=== PATIENT | male | born 1970 | race Two or more races ===

== ENCOUNTER 2021-08-07 09:38 | Emergency (ER) | payer OTHER, SELFPAY ==
--- NOTE | ~2021-08-07 | XR_ITS ---
EXAMINATION: XR CHEST CLINICAL INFORMATION: Cough COMPARISON: Previous chest x-ray most recent June 2019 TECHNIQUE: Frontal view of the chest was obtained. FINDINGS: No significant abnormality is noted involving the heart, lungs, mediastinum, bony thorax or soft tissues. XR/XR chest 1V IMPRESSION: Unremarkable examination.
--- NOTE | ~2021-08-07 | CT_ITS ---
EXAMINATION: CT ABDOMEN AND PELVIS WITHOUT CONTRAST CLINICAL INFORMATION: Left flank, back pain. COMPARISON: None TECHNIQUE: Multidetector volumetric imaging was performed from the superior aspect of the liver through the pubic symphysis. No oral or intravenous contrast. Sagittal and coronal reformatted images were obtained on the technologist's workstation. This CT examination was performed using dose optimization techniques as appropriate, variously including the following: *Automated exposure control *Adjustment of mA and/or kV according to patient size (this includes techniques or standardized protocols for targeted exams where dose is matched to indication/reason for exam; i.e. extremities or head) *Use of iterative reconstruction technique DLP: 366 mGy-cm FINDINGS: LUNG BASES: The visualized lung bases are unremarkable. LIVER, GALLBLADDER, AND BILIARY TREE: The liver is normal in size, shape, and attenuation. No focal hepatic lesion or biliary ductal dilatation is present. The gallbladder is unremarkable with no evidence of radiopaque gallstones, gallbladder wall thickening, or obvious pericholecystic inflammatory changes. PANCREAS: Unremarkable. SPLEEN: Unremarkable. ADRENAL GLANDS: Unremarkable. KIDNEYS AND URETERS: The kidneys are normal in size and show no hydronephrosis, hydroureter, or perinephric stranding. There is a punctate nonobstructing calculus lower pole left kidney measuring under 3 mm. No visible ureteral calculi. BLADDER: Unremarkable. GASTROINTESTINAL TRACT: No bowel obstruction or focal inflammatory changes in the bowel or mesentery. Normal appendix. No ascites or fluid collection. ABDOMINAL WALL: There is left inguinal hernia 2 x 3 cm in diameter and 6 cm in length. There is oval soft tissue density within the hernia 26 HU possibly retracted testis or mass spermatic cord. LYMPH NODES: No lymphadenopathy. VASCULAR: Unremarkable. PELVIC VISCERA: Unremarkable. OSSEOUS STRUCTURES: No acute bony abnormality. There are degenerative disc changes L4-L5 with disc narrowing and vacuum disc. CT/CT abdomen pelvis wo con IMPRESSION: 1. Punctate nonobstructing left lower pole renal calculus. No hydronephrosis or perinephric stranding. 2. No inflammatory changes in bowel or mesentery. No ascites. 3. Left inguinal hernia containing soft tissue, possibly retracted testis are lesion spermatic cord. 4. Abdominal aorta normal in caliber. No adenopathy. 5. Degenerative disc changes L4-L5. Fleischner guidelines were followed.
[2021-08-07 10:03] VITALS: BP 107/72; PULSE 76; RESP 18; TEMP 36.6; O2SAT 98; BMI 27.8
--- NOTE | 2021-08-07 11:01 | ED_ITS ---
HPI - Back Pain/Injury General Chief Complaint: Back Pain/Injury Stated Complaint: back pain, rash Time Seen by Provider: 08/07/21 10:41 Source: patient Mode of arrival: ambulatory Limitations: language barrier (Yakut-speaking) History of Present Illness HPI Narrative: 50-year-old male with a past medical history of asthma presenting to the ED with complaints of atraumatic left lower back/flank pain since Satur ay when he was at home he cannot recall any specific injury. Although he does report that he just recently started a job and he is lifting/bending/turning and he is unsure if it is related to this although he was not at work when this started. He also reports his urine being wider in color. He also reports when he was at work he noticed some redness to his bilateral forearms which have improved he is unsure if he is allergic to the gloves that he was wearing because he does not use any chemicals at home. He also reports a slight cough that recently started no sputum production related to this. He denies any fevers, chills, dizziness, headaches, neck pain/stiffness, chest pain or shortne ss of breath, dyspnea on exertion, orthopnea, palpitations, lower extremity edema, nausea/vomiting/diarrhea, constipation, black or bloody stools, hematuria, abnormal penile discharge, thoughts of STDs, recent travel or sick contacts, or history of IV drug use or any other symptoms complaints or co ncerns at this time. MD elicited complaint: back pain Onset (ago): day(s) (4 days) Timing: constant and progressively worsening Severity: mild Similar Symptoms Previously: No Quality: sharp Location: left flank and left lower back Radiation: none Exacerbating factors: none Relieving factors: none Context: unknown Work related injury: No Related Data Previous Rx's Medication Instructions Recorded azithromycin 250 mg tablet See Rx Instructions .ROUTE 08/07/21 .COMPLEX #6 tab diazepam 5 mg tablet (Valium) 5 mg PO TID PRN #14 tab 08/07/21 lidocaine 5 % topical patch 1 patch TOPICAL DAILY #15 ea 08/07/21 (Lidoderm) Allergies Allergy/AdvReac Type Severity Reaction Status Date / Time No Known Allergies Allergy Verified 08/07/21 10:02 [No Known Allergies*] Review of Systems Review of Systems: Constitutional : No trauma, No Weight loss, No Fever, No Chills, ENT/Mouth : No Hearing loss, No Ear Pain, No Nasal Congestion, No Sinus Pain, No Hoarseness, No sore throat, No Rhinorrhea, No Swallowing Difficulty Cardiovascular : No Chest Pain, No SOB Respiratory : + Cough, No Dyspnea Gastrointestinal : No Nausea, No Vomiting, No Diarrhea, No abdominal Pain, No Hematochezia, No Melena Genitourinary : No Dysuria, No Urinary Frequency, No Hematuria, No Urinary or Bowel Incontinence/retention Musculoskeletal : + Back pain, No neck pain, No joint stiffness, No joint swelling Skin : + Rash, No Skin Lesions, No signs of infection Neuro : No Weakness, No radiation, No Numbness, No Paresthesias, No headache, no loss of bowel or bladder incontinence, no saddle anesthesia, Focal weakness, No radiation Denies history of IV drug usage. Yes all other systems are reviewed and are negative [facility] Past Medical History Attestation statement: The following information was validated with the patient. Medical History Asthma Social History Social History Advance Directives: No Physical Exam Vital Signs: Vital Signs: Last Vital Signs Temp 97.8 F 08/07/21 10:03 Pulse 76 08/07/21 10:03 Resp 18 08/07/21 10:03 BP 107/72 08/07/21 10:03 Pulse Ox 98 08/07/21 10:03 Body Mass Index 27.8 vital signs have been reviewed as normal and appeared to be correct. Blood pressure normal. Heart rate normal. Respiration rate normal. Temperature n ormal. Oxygen saturation normal. Appearance: Alert. Oriented X3. No acute distress. Head: Normal external exam. Normocephalic. Atraumatic. Eyes: PERRLA. EOMI. Conjunctiva and sclera normal. Eyelids normal. ENT: Pharynx normal. Uvula midline. Moist mucous membranes. No trismus noted. No drooling noted. No muffled voice noted. Neck: Normal inspection. Neck supple. FROM. No adenopathy. Thyroid Normal. No meningeal signs. No neck mass noted. CVS: Normal heart rate and rhythm. Heart sound normal. No murmurs noted. Pulses normal throughout. Respiratory: No respiratory distress. Painless inspiration. Breath sounds normal. No wheezes/rales/rhonchi noted. Chest nontender. No accessory muscle usage noted or decreased air movement noted. Abdomen: Soft and nontender. Bowel sounds normal in all 4 quadrants. No distention noted. No organomegaly noted. No visible injury noted. Back: + left CVA tenderness. No Right CVAT noted. Full range of motion noted. No obvious deformities, or edema. Mild para-spinal muscular tenderness from lumbar region to coccyx. Full ROM in back and lower extremities. 5/5 strength hip extension/flexion, abduction, adduction. Mild Lumbar pain with hip flexion against resistance. Straight leg raise test negative on right; Straight leg raise test negative on left; Reflexes normal ankle and knee bilaterally; EHL motor strength normal bilaterally. No rashes/lesion/induration/fluctuance or signs infection noted. Skin: Skin warm and dry. Normal skin color. Normal skin turgor. To bilateral forearms on the dorsal aspect patient has mild erythema otherwise no rashes are noted may be improving allergic reaction. No lesions/lacerations noted. Extremities: No lower extremity edema. No calf tenderness noted bilaterally. Extremities exhibit normal range of motion. Extremities nontender. Neuro: Oriented X 3. No motor deficit. No sensory deficit. Reflexes normal. Patient has a normal steady gait. Course Course Course Narrative: 11am - Pt c likely muscular pain, but could be herniated disc. Neuro exam shows no deficits. Not c/w Pyelo/UTI/spinal fx. Not c/w AAA/epidural abscess/dissection. Not cauda equina syndrome. No high risk Hx (Incont, fever, immunosupp, recent surgery/LP, coag, signif trauma, wt loss, puls mass, hx/o Ca, TB, or IVDU) to warrant MRI today. Due to patient only having left-sided back/flank pain will obtain basic labs and a CT scan abdomen pelvis without IV contrast will also obtain a chest x-ray and I covid swab and re-evaluate. Reevaluation(s) Reevaluation #1: - labs obtained and all within normal limits. UA within normal limits no evidence of UTI. COVID swab negative. Chest x-ray negative. CT scan abdomen pelvis without IV contrast revealed a kidney stone still in the kidney and a left inguinal hernia and degenerative changes of L4/L5 otherwise no other acute processes only chronic changes. Therefore at this time will DC home with symptomatic treatment for muscular strain instructions return if any new or worsening symptoms to follow up with primary care provider. Patient understands agrees with this plan. Time: 12:21 MDM - Back Pain/Injury Medical Records Attestation: I reviewed the patient's medical records. Lab Data Attestation: I reviewed the patient's lab results. Result diagrams: 08/07/21 11:07 08/07/21 11:07 Labs: Lab Results 08/07/21 08/07/21 08/07/21 Range/Units 10:54 10:54 11:07 WBC 5.4 (4.8-10.8) X10*3/uL RBC 4.44 L (4.60-5.80) X10*6/uL Hgb 14.4 (14.0-18.0) g/dl Hct 43.1 (42.0-52.0) % MCV 97.1 (80.0-98.0) fL MCH 32.4 (27.0-33.0) pg MCHC 33.4 (31.0-36.0) g/dl RDW 12.3 (11.0-16.0) % Plt Count 268 (160-400) X10*3/uL MPV 8.9 L (9.4-12.4) fL Immature Gran % (Auto) 0.2 (0.0-0.4) % Neut % (Auto) 69.8 (45-73) % Lymph % (Auto) 12.8 L (20-40) % [place] % (Auto) 13.4 H (2-11) % Eos % (Auto) 3.2 (0-4) % Baso % (Auto) 0.6 (0-2) % Lymph # (Auto) 0.7 L (1.2-4.9) X10*3/uL [place] # (Auto) 0.7 (0.1-1.2) X10*3/uL Eos # (Auto) 0.2 (0.0-0.4) X10*3/uL Baso # (Auto) 0.0 (0.0-0.2) X10*3/uL Abs Immat Gran (auto) 0.01 (0.00-0.03) X10*3/uL Absolute Neuts (auto) 3.8 (2.0-8.3) x10*3/uL Absolute Nucleated RBC 0.000 (0.0-0.012) X10*3/uL Nucleated RBC % (auto) 0.0 (0.0-0.2) /100WBC Sodium (135-145) mmol/L Potassium (3.3-5.1) mmol/L Chloride (96-108) mmol/L Carbon Dioxide (22-29) mmol/L Anion Gap (12-20) BUN (9-16) mg/dL Creatinine (0.5-1.4) mg/dL Estim Creat Clear Calc Estimated GFR Random Glucose (60-115) mg/dL Calcium (8.4-10.2) mg/dL Urine Color YELLOW Urine Appearance CLEAR Urine pH 6.0 (5.0-8.0) Ur Specific [place] >= 1.030 H (1.005-1.025) Urine Protein TRACE (NEG-TRACE) MG/DL Urine Glucose (UA) NEG (NEG) MG/DL Urine Ketones NEG (NEG) MG/DL Urine Blood NEG (NEG) Urine Nitrite NEG (NEG) Ur Leukocyte Esterase NEG (NEG) COVID-19 (MARIFER) Negative (Negative) COVID-19 Clin Com See Note 08/07/21 Range/Units 11:07 WBC (4.8-10.8) X10*3/uL RBC (4.60-5.80) X10*6/uL Hgb (14.0-18.0) g/dl Hct (42.0-52.0) % MCV (80.0-98.0) fL MCH (27.0-33.0) pg MCHC (31.0-36.0) g/dl RDW (11.0-16.0) % Plt Count (160-400) X10*3/uL MPV (9.4-12.4) fL Immature Gran % (Auto) (0.0-0.4) % Neut % (Auto) (45-73) % Lymph % (Auto) (20-40) % [place] % (Auto) (2-11) % Eos % (Auto) (0-4) % Baso % (Auto) (0-2) % Lymph # (Auto) (1.2-4.9) X10*3/uL [place] # (Auto) (0.1-1.2) X10*3/uL Eos # (Auto) (0.0-0.4) X10*3/uL Baso # (Auto) (0.0-0.2) X10*3/uL Abs Immat Gran (auto) (0.00-0.03) X10*3/uL Absolute Neuts (auto) (2.0-8.3) x10*3/uL Absolute Nucleated RBC (0.0-0.012) X10*3/uL Nucleated RBC % (auto) (0.0-0.2) /100WBC Sodium 138 (135-145) mmol/L Potassium 4.4 (3.3-5.1) mmol/L Chloride 107 (96-108) mmol/L Carbon Dioxide 25 (22-29) mmol/L Anion Gap 10 L (12-20) BUN 7 L (9-16) mg/dL Creatinine 0.88 (0.5-1.4) mg/dL Estim Creat Clear Calc 93.2 Estimated GFR > 60 Random Glucose 87 (60-115) mg/dL Calcium 8.7 (8.4-10.2) mg/dL Urine Color Urine Appearance Urine pH (5.0-8.0) Ur Specific [place] (1.005-1.025) Urine Protein (NEG-TRACE) MG/DL Urine Glucose (UA) (NEG) MG/DL Urine Ketones (NEG) MG/DL Urine Blood (NEG) Urine Nitrite (NEG) Ur Leukocyte Esterase (NEG) COVID-19 (MARIFER) (Negative) COVID-19 Clin Com Imaging Data Chest x-ray: Attestation: I personally reviewed and interpreted this imaging study as follows: Radiologist's impression: FINDINGS: No significant abnormality is noted involving the heart, lungs, mediastinum, bony thorax or soft tissues. XR/XR chest 1V IMPRESSION: Unremarkable examination. CT scan abdomen pelvis without IV contrast: Attestation: I personally reviewed and interpreted this imaging study as follows: Radiologist's impression: FINDINGS: LUNG BASES: The visualized lung bases are unremarkable.? LIVER, GALLBLADDER, AND BILIARY TREE: The liver is normal in size, shape, and attenuation. No focal hepatic lesion or biliary ductal dilatation is present. The gallbladder is unremarkable with no evidence of radiopaque gallstones, gallbladder wall thickening, or obvious pericholecystic inflammatory changes.? PANCREAS: Unremarkable.? SPLEEN: Unremarkable.? ADRENAL GLANDS: Unremarkable.? KIDNEYS AND URETERS: The kidneys are normal in size and show no hydronephrosis, hydroureter, or perinephric stranding. There is a punctate nonobstructing calculus lower pole left kidney measuring under 3 mm. No visible ureteral calculi.? BLADDER: Unremarkable.? GASTROINTESTINAL TRACT: No bowel obstruction or focal inflammatory changes in the bowel or mesentery. Normal appendix. No ascites or fluid collection.? ABDOMINAL WALL: There is left inguinal hernia 2 x 3 cm in diameter and 6 cm in length. There is oval soft tissue density within the hernia 26 HU possibly retracted testis or mass spermatic cord. LYMPH NODES: No lymphadenopathy. VASCULAR: Unremarkable. PELVIC VISCERA: Unremarkable.? OSSEOUS STRUCTURES: No acute bony abnormality. There are degenerative disc changes L4-L5 with disc narrowing and vacuum disc.? CT/CT abdomen pelvis wo con IMPRESSION: ? 1. Punctate nonobstructing left lower pole renal calculus. No hydronephrosis or perinephric stranding. 2. No inflammatory changes in bowel or mesentery. No ascites. 3. Left inguinal hernia containing soft tissue, possibly retracted testis are lesion spermatic cord. 4. Abdominal aorta normal in caliber. No adenopathy. 5. Degenerative disc changes L4-L5.? ? Fleischner guidelines were followed. Discharge Plan Discharge Clinical Impression: Strain of lumbar region, Renal colic, Bronchitis Patient Disposition: Home, Self-Care Instructions: Renal Colic (ED), Acute Bronchitis (ED), Low Back Strain (ED) Prescriptions: New azithromycin 250 mg tablet See Rx Instructions .ROUTE .COMPLEX Qty: 6 RF: 0 lidocaine [Lidoderm] 5 % adhesive patch,medicated 1 patch topical DAILY Qty: 15 RF: 0 diazepam [Valium] 5 mg tablet 5 mg PO TID PRN (Reason: muscle spasm) Qty: 14 RF: 0 Referrals: Physician,Unknown J [Primary Care Provider] - 2 days (your pcp) Stand Alone Forms: Work/School Release Print Language: Yakut
[2021-08-07 11:02] LABS: Appearance Urine CLEAR; Color Urine YELLOW; Glucose Urine UA NEG (NEG); Leukocyte Esterase Urine NEG (NEG); Nitrite Urine NEG (NEG); Specific Gravity - Urine >= 1.030 (1.005-1.025); Urine Blood NEG (NEG); Urine Ketones NEG (NEG); Urine Protein TRACE MG/DL (NEG-TRACE)
[2021-08-07 11:10] LABS: MANUAL DIFF FLAG NO
[2021-08-07 11:13] LABS: Basophils Percent Auto 0.6 % (0-2); Eosinophils Absolute Auto 0.2 X10*3/uL (0.0-0.4); Eosinophils Percent Auto 3.2 % (0-4); Hematocrit 43.1 % (42.0-52.0); Hemoglobin 14.4 g/dl (14.0-18.0); Imm Gran Abs Auto 0.01 X10*3/uL (0.00-0.03); Imm Gran Pct Auto 0.2 % (0.0-0.4); Lymphocytes Absolute Auto 0.7 X10*3/uL (1.2-4.9); Lymphocytes Percent Auto 12.8 % (20-40); Mean Corpuscular HGB Conc 33.4 g/dl (31.0-36.0); Mean Corpuscular Hemoglobin 32.4 pg (27.0-33.0); Mean Corpuscular Volume 97.1 fL (80.0-98.0); Mean Platelet Volume 8.9 fL (9.4-12.4); Monocytes Absolute Auto 0.7 X10*3/uL (0.1-1.2); Monocytes Percent Auto 13.4 % (2-11); Neutrophils Absolute Auto 3.8 x10*3/uL (2.0-8.3); Neutrophils Percent Auto 69.8 % (45-73); Platelet Count 268 X10*3/uL (160-400); Red Blood Count 4.44 X10*6/uL (4.60-5.80); Red Cell Distribution Width 12.3 % (11.0-16.0); White Blood Count 5.4 X10*3/uL (4.8-10.8)
[2021-08-07 11:13] LABS: COVID-19 Test Negative (Negative)
[2021-08-07 11:26] LABS: Anion Gap 10 (12-20); Blood Urea Nitrogen 7 mg/dL (9-16); Calcium 8.7 mg/dL (8.4-10.2); Carbon Dioxide 25 mmol/L (22-29); Chloride 107 mmol/L (96-108); Creatinine Clr Calc Pharmacy 93.2; Estimated Glomerular Filt Rate > 60; Glucose Random 87 mg/dL (60-115); Potassium 4.4 mmol/L (3.3-5.1); Sodium 138 mmol/L (135-145)
== END 2021-08-07 12:39 | disposition home or self-care (01) ==
PROVIDERS: Physician Assistant Medical; Emergency Provider Emergency Medicine
DX: M54.50 Low back pain, unspecified (principal); J40 Bronchitis, not specified as acute or chronic; N23 Unspecified renal colic; R21 Rash and other nonspecific skin eruption; Z20.822 Contact with and (suspected) exposure to COVID-19; Z79.899 Other long term (current) drug therapy
CPT/HCPCS: 36415; 71045; 74176; 80048; 81003; 85025; 87635; 99283; 99284

== ENCOUNTER 2021-09-26 11:33 | Outpatient (REF) | payer OTHER, SELFPAY ==
[2021-09-26 13:14] LABS: COVID-19 Test Negative (Negative)
== END 2021-09-26 11:34 | disposition home or self-care (01) ==
LOC: HO.LAB 11:33
PROVIDERS: Visit Provider Internal Medicine
DX: Z20.822 Contact with and (suspected) exposure to COVID-19 (principal)
CPT/HCPCS: 87635; C9803

== ENCOUNTER 2022-03-31 19:30 | Emergency (ER) | payer OTHER, SELFPAY ==
[2022-03-31 19:45] VITALS: BP 117/56; PULSE 95; RESP 18; TEMP 37.6; O2SAT 95; BMI 24.0
[2022-03-31 20:12] LABS: COVID-19 Test Positive (Negative); IDNOW Serial# 16C4AD1C
--- NOTE | 2022-03-31 22:21 | ED_ITS ---
HPI - URI/Sore Throat General Chief Complaint: Upper Respiratory Symptoms Stated Complaint: Fever, throat pain, headache Time Seen by Provider: 03/31/22 21:25 Source: patient Mode of arrival: ambulatory Limitations: no limitations History of Present Illness HPI Narrative: 51-year-old male history of asthma presenting with sudden onset sore throat, diffuse headache, malaise, myalgias, fatigue, subjective fevers and chills x1 day. Patient tells me this all started suddenly while he was at work. He tells me this feels weak is the flu. He tells me his whole body hurts. Denies chest pain, shortness of breath, nausea, vomiting, abdominal pain, vision changes, dizziness. Patient not vaccinated against covid or flu. No sick contacts Related Data Previous Rx's Medication Instructions Recorded azithromycin 250 mg tablet See Rx Instructions PO .COMPLEX #6 08/07/21 tabs diazepam 5 mg tablet (Valium) 5 mg PO TID PRN muscle spasm #14 08/07/21 tabs lidocaine 5 % topical patch 1 patch topical DAILY pain #15 ea 08/07/21 (Lidoderm) Allergies Allergy/AdvReac Type Severity Reaction Status Date / Time No Known Allergies Allergy Verified 08/07/21 10:02 [No Known Allergies*] Review of Systems Review of Systems: Constitutional : No Weight loss, + Fever, + Chills, + Fatigue, + Malaise ENT/Mouth : + sore throat, No Rhinorrhea, + facial congestion Eyes: No Eye Pain, No Swelling, No Redness Cardiovascular : No Chest Pain, No SOB, No Dyspnea on Exertion, No Orthopnea, No Edema, No Palpitations Respiratory : No Cough, No Sputum, No Wheezing Gastrointestinal : No Nausea, No Vomiting, No Diarrhea, No Constipation, No abdominal Pain, No Hematochezia, No Melena Genitourinary : No Dysuria, No Urinary Frequency, No Hematuria, Musculoskeletal : No joint pain, No Myalgias, No Joint Swelling Skin : No Skin Lesions, No rash Neuro : No Weakness, No Numbness, No Dizziness, No Headache Psych : No Anxiety/Panic, No Depression All other systems reviewed and are negative Yes all other systems are reviewed and are negative [facility] Past Medical History Attestation statement: The following information was validated with the patient. Source: old records reviewed and nursing notes reviewed Medical History Asthma Physical Exam Vital Signs: Vital Signs: Last Vital Signs Temp 99.7 F 03/31/22 19:45 Pulse 95 03/31/22 19:45 Resp 18 03/31/22 19:45 BP 117/56 L 03/31/22 19:45 Pulse Ox 95 03/31/22 19:45 O2 Del Method 03/31/22 19:45 BMI result Body Mass Index 24.0 Vital signs stable Appearance: Alert.? Oriented X3.? No acute distress.? Head: Normocephalic, atraumatic, no step-offs or deformities Eyes: Pupils equal, round and reactive to light.? CVS: Normal heart rate and rhythm.? Pulses normal.? Respiratory: No respiratory distress.? Breath sounds normal.? Abdomen: Soft and nontender.? Skin: Skin warm and dry.? Normal skin color.? Normal skin turgor.? Extremities: No lower extremity edema.? No calf ttp, negative janeth b/l. 5/5 strength to bilateral upper and lower extremities Neuro: Oriented X 3.? No motor deficit.? No sensory deficit. CN 2-12 intact . Normal [id number]. Steady tandem gait Course Reevaluation(s) Reevaluation #1: Patient is noted to be COVID positive. Educated him on instructions for COVID- 19 per CDC guidelines. Advised to return with new or worsening symptoms. At this time I feel comfortable with discharge home. Time: 22:24 MDM - URI/Sore Throat MDM Narrative Medical decision making narrative: 2223 51-year-old male presents with sudden-onset upper respiratory symptoms, sore throat, malaise, subjective fevers and chills times a few hours Physical exam benign. Cerebellar function intact Likely COVID-19. Low suspicion for pneumonia, ACS, for strep pharyngitis. No red flag symptoms for headache unlikely posterior stroke Plan at this time is COVID test. Medical Records Attestation: I reviewed the patient's medical records. Lab Data Attestation: I reviewed the patient's lab results. Labs: Lab Results 03/31/22 Range/Units 19:52 COVID-19 (MARIFER) Positive A (Negative) COVID-19 Clin Com See Note Critical Care Time Critical Care Time Critical Care Time: No Discharge Plan Discharge Clinical Impression: COVID-19 Patient Disposition: Home, Self-Care Additional Instructions: Take your medications as prescribed. If you were prescribed antibiotics today, it is important that you take your medication to their entirety, do not skip any doses, do not finish them early. Today you tested positive for COVID-19. Take Ibuprofen or Tylenol as needed for fevers or body aches. Quarantine for 5 days and ensure you wear a mask. After 5 days you should wear a mask for 5 days after that. Practice social distancing and good hand hygiene. Drink plenty of fluids. Follow-up with your primary care provider this week. Return to the emergency department with new or worsening symptoms. In case of emergency call 911 You can purchase a pulse oximeter from your local pharmacy or grocery store, and monitor your oxygen saturation if it goes below 94% you should return to the emergency department for further evaluation. Prescriptions: No Action azithromycin 250 mg tablet See Rx Instructions .ROUTE .COMPLEX Qty: 6 0RF Rx Instructions: take 500 mg today (day 1), then 250 mg for 4 days (days 2-5) lidocaine [Lidoderm] 5 % adhesive patch,medicated 1 patch topical DAILY Qty: 15 0RF Rx Instructions: leave on most painful area for up to 12 hrs. May be substituted diazepam [Valium] 5 mg tablet 5 mg PO TID PRN (Reason: muscle spasm) Qty: 14 0RF Referrals: Physician,Unknown J [Primary Care Provider] - 2 days Stand Alone Forms: Work/School Release Interventions: ED Discharge Assessment Last Done: 03/31/22 22:28
== END 2022-03-31 22:46 | disposition home or self-care (01) ==
LOC: HO.ED 22:34
PROVIDERS: Emergency Provider Student in an Organized Health Care Education/Training Program
DX: U07.1 COVID-19 (principal); R50.9 Fever, unspecified; R51.9 Headache, unspecified; R07.0 Pain in throat; Z79.899 Other long term (current) drug therapy
CPT/HCPCS: 87635; 99282

== ENCOUNTER 2022-04-05 11:05 | Outpatient (REF) | payer OTHER, SELFPAY ==
[2022-04-05 11:52] LABS: COVID-19 Test Negative (Negative); IDNOW Serial# 9DB6401D
== END 2022-04-05 11:06 | disposition home or self-care (01) ==
LOC: HO.LAB 11:05
PROVIDERS: Visit Provider Internal Medicine
DX: Z20.822 Contact with and (suspected) exposure to COVID-19 (principal)
CPT/HCPCS: 87635; C9803

== ENCOUNTER 2023-02-11 12:23 | Emergency (ER) | payer SELFPAY ==
--- NOTE | ~2023-02-11 | XR_ITS ---
EXAMINATION: XR CHEST CLINICAL INFORMATION: Chest pain COMPARISON: Previous chest x-ray most recent July 2021 TECHNIQUE: 2 views of the chest were obtained. FINDINGS: No significant abnormality is noted involving the heart, lungs, mediastinum, bony thorax or soft tissues. XR/XR chest 2V IMPRESSION: Unremarkable examination.
--- NOTE | 2023-02-11 12:27 | ECG_ITS ---
Test Reason : cp Blood Pressure : / mmHG Vent. Rate : 077 BPM Atrial Rate : 077 BPM P-R Int : 142 ms QRS Dur : 076 ms QT Int : 380 ms P-R-T Axes : 084 073 070 degrees QTc Int : 430 ms Normal sinus rhythm Normal ECG When compared with ECG of 26-MAY-2019 17:18, No significant change was found Referred By: Emily Colbert Electronically Signed By:MARY WARE MD
[2023-02-11 13:05] VITALS: BP 128/70; PULSE 74; RESP 16; TEMP 36.5; O2SAT 97; BMI 24.5
--- NOTE | 2023-02-11 13:06 | ED_ITS ---
HPI - Asthma General Chief Complaint: General Medical Stated Complaint: chest pain l arm pain asthma Time Seen by Provider: 02/11/23 16:22 Source: patient and other History of Present Illness HPI Narrative: 52-year-old male who presents with asthma exacerbation, does not have a primary care doctor but is in the process of establishing care, does not have any med ication but is had worsening shortness of breath without associated fever, chills. Related Data Previous Rx's Medication Instructions Recorded azithromycin 250 mg tablet See Rx Instructions PO .COMPLEX #6 08/07/21 tabs diazepam 5 mg tablet (Valium) 5 mg PO TID PRN muscle spasm #14 08/07/21 tabs lidocaine 5 % topical patch 1 patch topical DAILY pain #15 ea 08/07/21 (Lidoderm) albuterol sulfate 90 mcg/actuation 2 puff inhalation Q4-6H PRN 02/11/23 aerosol inhaler (Ventolin HFA) shortness of breath or wheezing #8.5 grams prednisone 50 mg tablet 50 mg PO DAILY 4 days #4 tabs 02/11/23 Allergies Allergy/AdvReac Type Severity Reaction Status Date / Time No Known Allergies Allergy Verified 08/07/21 10:02 [No Known Allergies*] Review of Systems Review of Systems: Pertinent positives and negatives as stated in HPI PMFSH Past Medical History Source: nursing notes reviewed Medical History Asthma Social History Social History Advance Directives: No Advance Directives Information Provided: No Physical Exam Vital Signs: Vital Signs: Last Vital Signs Temp 97.7 F 02/11/23 13:05 Pulse 74 02/11/23 13:05 Resp 16 02/11/23 13:05 BP 128/70 02/11/23 13:05 Pulse Ox 97 02/11/23 13:05 O2 Del Method Room Air 02/11/23 13:05 BMI result Body Mass Index 24.5 VITAL SIGNS: Reviewed. GENERAL: Well developed, well nourished, in no acute distress. HEAD: Normocephalic/atraumatic EYES: PERRLA, EOMI EARS: Ext canals without abnormality NOSE: Nares patent bilateral OROPHARYNX: no oral lesions noted, posterior pharynx clear NECK: Supple, no adenopathy LUNGS: No tachypnea or increased work of breathing, there is scattered expiratory wheezing. SpO2<97> CARDIOVASCULAR: Regular rate and rhythm without noted murmurs ABDOMEN: Soft, non-tender, non-distended with bowel sounds. MUSCULOSKELETAL: No tenderness, deformities, or effusions noted on gross inspection. EXTREMITIES: No cyanosis, clubbing or edema. SKIN: Inspection of the skin reveals no rashes NEUROLOGIC: Alert and oriented x 4. Strength and sensation to light touch were grossly intact x 4. Course Course Course Narrative: RME - 52 y/o [place]inyar[place] speaking male with history of asthma presents to the ER for evaluation of SOB and asthma along with left sided chest pain and left shoulder pain that started yesterday. Reports pain is worse with movement of the left shoulder, difficulty driving due to pain. Also reports intermittent palpitations. VSS in triage. Plan: EKG, CXR, lab workup Medical Decision Making Medical Decision Making MDM Narrative: 52-year-old male with shortness of breath and chest tightness more than chest pain on clinical evaluation patient appears to have worsened asthma symptoms and on review of all investigations further corroboration is an eosinophilia 5 with negative trope and no concerning features on the EKG. Chest x-ray is also wit hout findings to suggest pneumonia. Patient given Ventolin as well as initiating steroids. He is then discharged home in stable condition. Differential Diagnosis Please see the discussion above Lab Data Please see the discussion above 02/11/23 12:56 02/11/23 12:56 Labs: Lab Results 02/11/23 02/11/23 02/11/23 Range/Units 12:56 12:56 12:56 WBC 6.0 (4.8-10.8) X10*3/uL RBC 4.43 L (4.60-5.80) X10*6/uL Hgb 14.3 (14.0-18.0) g/dl Hct 43.5 (42.0-52.0) % MCV 98.2 H (80.0-98.0) fL MCH 32.3 (27.0-33.0) pg MCHC 32.9 (31.0-36.0) g/dl RDW 12.8 (11.0-16.0) % Plt Count 331 (160-400) X10*3/uL MPV 8.8 L (9.4-12.4) fL Immature Gran % (Auto) 0.2 (0.0-0.4) % Neut % (Auto) 53.2 (45-73) % Lymph % (Auto) 29.2 (20-40) % [place] % (Auto) 11.7 H (2-11) % Eos % (Auto) 5.0 H (0-4) % Baso % (Auto) 0.7 (0-2) % Lymph # (Auto) 1.7 (1.2-4.9) X10*3/uL [place] # (Auto) 0.7 (0.1-1.2) X10*3/uL Eos # (Auto) 0.3 (0.0-0.4) X10*3/uL Baso # (Auto) 0.0 (0.0-0.2) X10*3/uL Abs Immat Gran (auto) 0.01 (0.00-0.03) X10*3/uL Absolute Neuts (auto) 3.2 (2.0-8.3) x10*3/uL Absolute Nucleated RBC 0.000 (0.0-0.012) X10*3/uL Nucleated RBC % (auto) 0.0 (0.0-0.2) /100WBC Sodium 144 (135-145) mmol/L Potassium 4.3 (3.3-5.1) mmol/L Chloride 106 (96-108) mmol/L Carbon Dioxide 29 (22-29) mmol/L Anion Gap 13 (12-20) BUN 11 (9-16) mg/dL Creatinine 1.04 (0.5-1.4) mg/dL Estim Creat Clear Calc 70.3 Estimated GFR > 60 Random Glucose 63 (60-115) mg/dL Calcium 9.2 (8.4-10.2) mg/dL Magnesium 2.1 (1.6-2.6) mg/dL Total Bilirubin 1.7 H (0.0-1.0) mg/dL Direct Bilirubin 0.5 (0.0-0.5) mg/dL AST 25 (5-37) U/L ALT 17 (0-40) U/L Alkaline Phosphatase 65 (39-117) U/L Troponin I High Sens < 2.7 (<3.5-35.0) ng/L Total Protein 6.9 (6.5-8.0) g/dL Albumin 4.0 (3.5-5.0) g/dL Independent Interpretation I performed an independent interpretation of an: EKG Interpretation: Normal sinus rhythm, HR-77, no STEMI, [place]/QRS/QTC is within normal limits. Radiology Impression Radiologist Impression: My interpretation is in agreement with radiology's impression. External Record Review External record reviewed: Prior outpatient labs Discharge Plan Discharge Clinical Impression: Asthma Patient Disposition: Home, Self-Care Instructions: Asthma (ED) Additional Instructions: 1. [place] los medicamentos seg?n lo prescrito. 2. Seguimiento con el proveedor de atenci?n primaria lo antes posible. Regrese a la blair de emergencias si los s?ntomas empeoran. 1. Take medications as prescribed. 2. Follow-up with primary care provider to earliest convenience. Return to the ER for any worsening symptoms. Prescriptions: New albuterol sulfate [Ventolin HFA] 90 mcg/actuation HFA aerosol inhaler 2 puff inhalation Q4-6H PRN (Reason: shortness of breath or wheezing) Qty: 8.5 0RF prednisone 50 mg tablet 50 mg PO DAILY 4 Days Qty: 4 0RF No Action azithromycin 250 mg tablet See Rx Instructions .ROUTE .COMPLEX Qty: 6 0RF Rx Instructions: take 500 mg today (day 1), then 250 mg for 4 days (days 2-5) lidocaine [Lidoderm] 5 % adhesive patch,medicated 1 patch topical DAILY Qty: 15 0RF Rx Instructions: leave on most painful area for up to 12 hrs. May be substituted diazepam [Valium] 5 mg tablet 5 mg PO TID PRN (Reason: muscle spasm) Qty: 14 0RF Print Language: Kinyarwanda
[2023-02-11 13:07] LABS: Basophils Percent Auto 0.7 % (0-2); Eosinophils Absolute Auto 0.3 X10*3/uL (0.0-0.4); Hematocrit 43.5 % (42.0-52.0); Hemoglobin 14.3 g/dl (14.0-18.0); Imm Gran Abs Auto 0.01 X10*3/uL (0.00-0.03); Imm Gran Pct Auto 0.2 % (0.0-0.4); Lymphocytes Absolute Auto 1.7 X10*3/uL (1.2-4.9); Lymphocytes Percent Auto 29.2 % (20-40); MANUAL DIFF FLAG NO; Mean Corpuscular HGB Conc 32.9 g/dl (31.0-36.0); Mean Corpuscular Hemoglobin 32.3 pg (27.0-33.0); Mean Corpuscular Volume 98.2 fL (80.0-98.0); Mean Platelet Volume 8.8 fL (9.4-12.4); Monocytes Absolute Auto 0.7 X10*3/uL (0.1-1.2); Monocytes Percent Auto 11.7 % (2-11); Neutrophils Absolute Auto 3.2 x10*3/uL (2.0-8.3); Neutrophils Percent Auto 53.2 % (45-73); Platelet Count 331 X10*3/uL (160-400); Red Blood Count 4.43 X10*6/uL (4.60-5.80); Red Cell Distribution Width 12.8 % (11.0-16.0)
[2023-02-11 13:40] LABS: Alanine Aminotransferase 17 U/L (0-40); Alkaline Phosphatase 65 U/L (39-117); Anion Gap 13 (12-20); Aspartate Amino Transferase 25 U/L (5-37); Bilirubin Direct 0.5 mg/dL (0.0-0.5); Bilirubin Total 1.7 mg/dL (0.0-1.0); Blood Urea Nitrogen 11 mg/dL (9-16); Calcium 9.2 mg/dL (8.4-10.2); Carbon Dioxide 29 mmol/L (22-29); Chloride 106 mmol/L (96-108); Creatinine Clr Calc Pharmacy 70.3; Estimated Glomerular Filt Rate > 60; Glucose Random 63 mg/dL (60-115); Magnesium 2.1 mg/dL (1.6-2.6); Potassium 4.3 mmol/L (3.3-5.1); Sodium 144 mmol/L (135-145); Total Protein 6.9 g/dL (6.5-8.0)
[2023-02-11 13:48] LABS: Troponin-I High Sensitivity < 2.7 ng/L (<3.5-35.0)
[2023-02-11] MEDS: predniSONE 10 MG TABLET 50 MG PO (16:56)
[2023-02-11] MEDS: Albuterol Sulfate 90 MCG 8 GM INHALER 4 PUFF INHALE (16:58)
--- NOTE | 2023-02-11 16:59 | PC.NURSE ---
pt medicated per MAR
[2023-02-11 17:05] VITALS: BP 119/76; PULSE 72; RESP 16; TEMP 36.8; O2SAT 98
== END 2023-02-11 17:07 | disposition home or self-care (01) ==
PROVIDERS: Physician Assistant; Emergency Provider Student in an Organized Health Care Education/Training Program
DX: J45.909 Unspecified asthma, uncomplicated (principal); R06.02 Shortness of breath; Z79.899 Other long term (current) drug therapy
CPT/HCPCS: 36415; 71046; 80048; 80076; 83735; 84484; 85025; 93005; 99284

== ENCOUNTER 2023-06-10 09:40 | Emergency (ER) | payer MEDICAID, SELFPAY ==
[2023-06-10 09:41] VITALS: BP 128/80; PULSE 88; RESP 16; TEMP 36.7; O2SAT 98; BMI 23.7
--- NOTE | 2023-06-10 11:14 | ED_ITS ---
HPI - Asthma General Chief Complaint: Asthma Stated Complaint: asthma Time Seen by Provider: 06/10/23 11:50 Source: patient Mode of arrival: ambulatory Limitations: no limitations History of Present Illness HPI Narrative: Patient is a 52-year-old male with history of asthma presenting to the emergency department with complaint of 2 weeks of shortness of breath and wheezing consistent with his typical asthma exacerbations. Reports occasional nonproductive cough, denies fevers. Reports that he does not have any inhalers or nebulizer treatments at home, does not have a nebulizer machine. States that he called the clinic to schedule an appointment but was not able to be seen for several weeks. Denies chest pain but does reports some tightness with episodes of shortness of breath. Also reports increased seasonal allergy symptoms recently. complaint: shortness of breath Onset (ago): week(s) Severity: moderate and similar to prior Associated symptoms: dry cough Related Data Previous Rx's Medication Instructions Recorded azithromycin 250 mg tablet See Rx Instructions PO .COMPLEX #6 08/07/21 tabs diazepam 5 mg tablet (Valium) 5 mg PO TID PRN muscle spasm #14 08/07/21 tabs lidocaine 5 % topical patch 1 patch topical DAILY pain #15 ea 08/07/21 (Lidoderm) albuterol sulfate 90 mcg/actuation 2 puff inhalation Q4-6H PRN 02/11/23 aerosol inhaler (Ventolin HFA) shortness of breath or wheezing #8.5 grams prednisone 50 mg tablet 50 mg PO DAILY 4 days #4 tabs 02/11/23 albuterol sulfate 90 mcg/actuation 2 puff inhalation Q4-6H PRN 06/10/23 aerosol inhaler (ProAir HFA) shortness of breath or wheezing #6.7 grams loratadine 10 mg tablet 10 mg PO DAILY #30 tabs 06/10/23 prednisone 20 mg tablet 40 mg (2 x 20 mg) PO DAILY #10 tabs 06/10/23 Allergies Allergy/AdvReac Type Severity Reaction Status Date / Time No Known Allergies Allergy Verified 08/07/21 10:02 [No Known Allergies*] Review of Systems Review of Systems: As per HPI Yes all other systems are reviewed and are negative Constitutional: Constitutional: Reports as per HPI PMFSH Past Medical History Medical History Asthma Social History Social History Advance Directives: No Advance Directives Information Provided: Yes Physical Exam Vital Signs: Vital Signs: Last Vital Signs Temp 98.1 F 06/10/23 09:41 Pulse 73 06/10/23 11:49 Resp 20 06/10/23 11:49 BP 128/80 06/10/23 09:41 Pulse Ox 98 06/10/23 09:41 O2 Del Method Room Air 06/10/23 09:41 BMI result Body Mass Index 23.7 Vital signs have been reviewed and appear to be correct. Blood pressure normal. Heart rate normal. Respiratory rate normal. Temperature normal. Oxygen saturation normal. Const: General: cooperative, healthy appearing and no acute distress Orientation/consciousness: oriented to person, oriented to place, oriented to time and patient oriented x3 Limitations: no limitations HEENT: Head: Yes normocephalic and Yes atraumatic Ears: external ears normal General nose exam: Normal external nose present Face and sinus: Yes face symmetric Mouth: oropharynx normal and moist mucous membranes Throat: Yes uvula midline Eyes: Pupils: Equal, round and reactive pupils present Neck: Neck: Yes normal visual inspection and Yes supple Resp: Effort & Inspection: normal respiratory effort and able to speak in complete sentences Auscultation: diminished lung sounds diffuse Cardio: Rate: regular rate Rhythm: regular rhythm Heart sounds: S1 normal heart sound present and S2 normal heart sound present GI: Palpation (GI): Soft to palpation and nontender Auscultation: norm oactive bowel sounds : General: Yes no CVA tenderness Back/Spine/Pelvis: Back: no CVA tenderness Skin: General skin exam: elasticity normal and turgor normal Neuro: General: oriented to person, oriented to place, oriented to time, patient oriented x3, moves all extremities, no focal motor deficits and CN's II- XI intact bilaterally Cranial nerves: Yes Equal, round and reactive pupils present Cognition (Neuro): normal cognition Extrem: General: Yes full ROM, Yes no pedal edema and Yes no calf tenderness Psych: Mental Status: mental status grossly normal Affect: normal affect Thought process: Normal thought process present Course Course Course Narrative: This is an RME: Additional HPI, ROS, PE not included below will be deferred to primary provider. 52 yo m presents w/ wheezing and asthma attack for > 1 week sx worsening while in the waiting room. No cp, fevers, chills. Per patient feels like typical asthma attack Plan- bronch protocol. Medications Administered Discontinued Medications Generic Name Dose Route Start Last Admin Trade Name Karina PRN Reason Stop Dose Admin Albuterol Sulfate 8 puff 06/10/23 11:32 06/10/23 11:48 Albuterol Sulfate 90 Mcg 8 Gm Inhaler INHALE 06/10/23 11:33 8 puff ONCE ONE Administration Medical Decision Making Medical Decision Making [facility] Narrative: Patient is a 52-year-old male with history of asthma presenting to the emergency department with complaint of 2 weeks of shortness of breath and wheezing consistent with his typical asthma exacerbations. On exam patient is awake, A+Ox3, VS WNL, afebrile, normal neurological exam without focal deficits, lung sounds diminished throughout. Given reported symptoms and physical exam findings, initial differential includes asthma exacerbation, allergic rhinitis, COVID, viral illness. Covid swab negative. Patient treated by respiratory therapy per bronchodilator protocol with improvement and shortness of breath. Will discharge home on short course of prednisone with albuterol inhaler as well as loratadine. Instructed patient to follow up with clinic, ED return precautions discussed at bedside. Patient verbalized understanding of and agreement with plan. Differential Diagnosis Differential Diagnoses: The differential diagnosis associated with the presentation includes As per [facility]. Lab Data [facility] Lab Attestation statement: I reviewed the patient's lab results. As per [facility] Labs: Lab Results 06/10/23 Range/Units 11:37 COVID-19 ([facility]) Negative (Negative) COVID-19 Clin Com See Note External Record Review External record reviewed: Inpatient record, Office record and Outpatient record Prescription Management I considered prescription management with: Other Chronic Conditions Patient?s care impacted by: Other (asthma) Discharge Plan Discharge Clinical Impression: Asthma with acute exacerbation Qualifiers: Asthma severity: mild Asthma persistence: unspecified Qualified Code(s): J45.901 - Unspecified asthma with (acute) exacerbation Patient Disposition: Home, Self-Care Instructions: Asthma (DC), How to Use a Metered-Dose Inhaler and a Spacer (ED) Additional Instructions: Hoy lo evaluaron en el departamento de emergencias por dificultad para respirar. Es probable que justino s?ntomas est?n relacionados con mariana exacerbaci?n del asma. Le recetan un tratamiento breve con un esteroide llamado prednisona para disminuir la inflamaci?n. Tambi?n le recetar?n un inhalador de albuterol que puede usar cada 4 a 6 horas seg?n sea necesario para la dificultad para respirar. Le est?n recetando loratadina, que es un medicamento para la alergia; t?boykin a diario. Geoffrey un seguimiento con la cl?karishma para detectar s?ntomas continuos. Regrese al departamento de emergencias si presenta dificultad para respirar, dolor en el pecho, fiebre de 100.4 ?F o m?s o cualquier otro s?ntoma preocupante que empeore. Prescriptions: New albuterol sulfate [ProAir HFA] 90 mcg/actuation HFA aerosol inhaler 2 puff inhalation Q4-6H PRN (Reason: shortness of breath or wheezing) Qty: 6.7 0RF loratadine 10 mg tablet 10 mg PO DAILY Qty: 30 0RF prednisone 20 mg tablet 40 mg PO DAILY Qty: 10 0RF No Action azithromycin 250 mg tablet See Rx Instructions .ROUTE .COMPLEX Qty: 6 0RF Rx Instructions: take 500 mg today (day 1), then 250 mg for 4 days (days 2-5) lidocaine [Lidoderm] 5 % adhesive patch,medicated 1 patch topical DAILY Qty: 15 0RF Rx Instructions: leave on most painful area for up to 12 hrs. May be substituted diazepam [Valium] 5 mg tablet 5 mg PO TID PRN (Reason: muscle spasm) Qty: 14 0RF albuterol sulfate [Ventolin HFA] 90 mcg/actuation HFA aerosol inhaler 2 puff inhalation Q4-6H PRN (Reason: shortness of breath or wheezing) Qty: 8.5 0RF prednisone 50 mg tablet 50 mg PO DAILY 4 Days Qty: 4 0RF Stand Alone Forms: Work/School Release Print Language: [place]ian
[2023-06-10] MEDS: Albuterol Sulfate 90 MCG 8 GM INHALER 8 PUFF INHALE (11:48)
[2023-06-10 11:49] VITALS: PULSE 73; RESP 20; O2SAT 94
[2023-06-10 12:12] LABS: COVID-19 Test Negative (Negative); IDNOW Serial# BCCEAD1C
== END 2023-06-10 13:20 | disposition home or self-care (01) ==
PROVIDERS: Physician Assistant; Emergency Provider Emergency Medicine
DX: J45.901 Unspecified asthma with (acute) exacerbation (principal); R06.02 Shortness of breath; Z20.822 Contact with and (suspected) exposure to COVID-19; Z20.828 Contact with and (suspected) exposure to other viral communicable diseases
CPT/HCPCS: 87635; 94640; 99283; 99284

== ENCOUNTER 2023-07-12 15:16 | Observation (INO) | payer MEDICAID, SELFPAY ==
[2023-07-12] VITALS (7 sets, daily range): BP systolic 119–128; BP diastolic 65–72; PULSE 97–114; RESP 14–22; TEMP 36.4–36.9; O2SAT 89–96; BMI 22.8
--- NOTE | ~2023-07-12 | XR_ITS ---
EXAMINATION: XR CHEST CLINICAL INFORMATION: Shortness of breath. Chest pain. COMPARISON: 02/11/2023. TECHNIQUE: 2 views of the chest were obtained. FINDINGS: The cardiomediastinal silhouette is normal. The lung connor are hyperinflated. There is no focal lung consolidation or pleural effusion. The bony structures and soft tissues are unremarkable. XR/XR chest 2V IMPRESSION: Hyperinflation may be seen with COPD. There is no focal lung consolidation or pleural effusion.
--- NOTE | 2023-07-12 15:37 | ED_ITS ---
HPI - SOB/Dyspnea General Chief Complaint: Dyspnea Stated Complaint: asthma,sob Time Seen by Provider: 07/12/23 16:07 Source: patient, RN notes reviewed and old records reviewed Limitations: no limitations History of Present Illness HPI Narrative: Patient is a 52-year-old male with a PMH of intermittent asthma prescribed albuterol nebulizer prn presenting with chest pain and shortness of breath x 7 days getting worse today. He has not used an inhaler since onset of symptoms because he does not have any medication at home he states he has ran out. Patient reports chest discomfort is in the substernal region described as pressure nonradiating. Shortness of breath and chest pain worse with ambulation. Denies fever, chills, myalgias, fatigue, headache, dizziness, confusion, cough, palpitations, abdominal pain, nausea, vomiting, loss of appetite, bowel movement changes, and urinary abnormalities. No recent travel. No recent sick contacts. Tells me this feels exactly like his typical asthma attack Related Data Previous Rx's Medication Instructions Recorded azithromycin 250 mg tablet See Rx Instructions PO .COMPLEX #6 08/07/21 tabs diazepam 5 mg tablet (Valium) 5 mg PO TID PRN muscle spasm #14 08/07/21 tabs lidocaine 5 % topical patch 1 patch topical DAILY pain #15 ea 08/07/21 (Lidoderm) albuterol sulfate 90 mcg/actuation 2 puff inhalation Q4-6H PRN 02/11/23 aerosol inhaler (Ventolin HFA) shortness of breath or wheezing #8.5 grams prednisone 50 mg tablet 50 mg PO DAILY 4 days #4 tabs 02/11/23 albuterol sulfate 90 mcg/actuation 2 puff inhalation Q4-6H PRN 06/10/23 aerosol inhaler (ProAir HFA) shortness of breath or wheezing #6.7 grams loratadine 10 mg tablet 10 mg PO DAILY #30 tabs 06/10/23 prednisone 20 mg tablet 40 mg (2 x 20 mg) PO DAILY #10 tabs 06/10/23 Allergies Allergy/AdvReac Type Severity Reaction Status Date / Time No Known Allergies Allergy Verified 08/07/21 10:02 [No Known Allergies*] Review of Systems 2 Review of Systems: Constitutional : No Weight loss, No Fever, No Chills, No Fatigue, No Malaise ENT/Mouth : No sore throat, No Rhinorrhea Eyes: No Eye Pain, No Swelling, No Redness Cardiovascular : No Chest Pain, No SOB, No Dyspnea on Exertion, No Orthopnea, No Edema, No Palpitations Respiratory : No Cough, No Sputum, No Wheezing Gastrointestinal : No Nausea, No Vomiting, No Diarrhea, No Constipation, No abdominal Pain, No Hematochezia, No Melena Genitourinary : No Dysuria, No Urinary Frequency, No Hematuria, Musculoskeletal : No joint pain, No Myalgias, No Joint Swelling Skin : No Skin Lesions, No rash Neuro : No Weakness, No Numbness, No Dizziness, No Headache All other systems reviewed and are negative Yes all other systems are reviewed and are negative [facility] Past Medical History Attestation statement: The following information was validated with the patient. Source: old records reviewed and nursing notes reviewed Medical History Asthma Social History Social History Alcohol intake: current Smoked in Last 30 Days: Yes Use of substances other than those prescribed or required for medical reasons: Yes Substance Use Type: Marijuana Advance Directives: No Advance Directives Information Provided: No Physical Exam 2 Vital Signs: Vital Signs: Last Vital Signs Temp 98.4 F 07/12/23 15:36 Pulse 97 07/12/23 17:32 Resp 14 07/12/23 17:32 BP 128/72 07/12/23 15:36 Pulse Ox 96 07/12/23 17:32 O2 Del Method Nasal Cannula 07/12/23 17:32 O2 Flow Rate 2 07/12/23 17:32 BMI result Body Mass Index 22.8 Noted to be hypoxic on room air. Remainder of vitals stable. Appearance: Alert.? Oriented X3.? + Mild acute distress.? Head: Normocephalic, atraumatic, no step-offs or deformities Eyes: Pupils equal, round and reactive to light.? Neck: Normal inspection.? Neck supple.? CVS: Normal heart rate and rhythm.? Pulses normal.? Respiratory: + mild respiratory distress.? Breath sounds w/ b/l inspiratory and expiratory wheezing L>R .? Abdomen: Soft and nontender.? Skin: Skin warm and dry.? Normal skin color.? Normal skin turgor.? Extremities: No lower extremity edema.? No calf ttp. 5/5 strength to bilateral upper and lower extremities Back: No midline tenderness, no C-spine tenderness, full range of motion, no CVA tenderness bilaterally Neuro: Oriented X 3.? No motor deficit.? No sensory deficit. CN 2-12 intact Course Course Course Narrative: This is an RME: Additional HPI, ROS, PE not included below will be deferred to primary provider. Patient is a 52-year-old male presents emergency department for evaluation of chest pain, shortness of breath, cough for 1 week. Symptoms were worsening today. He is having a hard time walking due to shortness of breath. Has a nebulizer machine at home but no medication for it. Does not have an inhaler. Reports a history of asthma. Denies known sick contacts, fevers, chills nausea, vomiting. PE: Inspiratory and expiratory wheezing throughout, tachycardia, tachypnea, hypoxia at 90% on room air. Plan: Meets SIRS criteria, blood cultures and L.A. ordered, spoke to charge out clerk moved to ED RM 1, labs, EKG, CXR, viral testing Reevaluation(s) Reevaluation #1: Patient is noted to have leukocytosis 11.6, likely reactive secondary to shortness of breath, chemistry with no acute findings requiring intervention. Chronically elevated total bilirubin. Lactic acid negative. D-dimer within normal limits. COVID, influenza negative. Chest x-ray with hyperinflation which could be seen with COPD. No focal lung consolidation or pleural effusion. Patient shortness of breath likely secondary to asthma. Unlikely PE negative dimer. Will give another treatment as well as magnesium Solu-Medrol as he continues to have wheezing. Will also obtain ambulatory O2. Time: 17:04 Reevaluation #2: Patient dropped to 88-89% on RA w/ ambulation Time: 17:14 Reevaluation #3: Plan hospital admission. Medications Administered Generic Name Dose Route Start Last Admin Trade Name Freq PRN Reason Stop Dose Admin Magnesium Sulfate 2 gm in 50 mls @ 25 mls/hr 07/12/23 17:03 07/12/23 17:31 Magnesium Sulfate/H2o IV 07/12/23 19:02 25 mls/hr ONCE ONE Administration Discontinued Medications Generic Name Dose Route Start Last Admin Trade Name Freq PRN Reason Stop Dose Admin Albuterol Sulfate 5 mg/ 0 mg 07/12/23 15:52 07/12/23 16:01 Albuterol/Ipratropium 3 ml INHALE 07/12/23 15:53 5 each ONCE ONE Administration Methylprednisolone Sodium Succinate 125 mg 07/12/23 17:03 07/12/23 17:31 Methylprednisolone Sod Succ 125 Mg/2 Ml Vial IVPUSH 07/12/23 17:04 125 mg ONCE ONE Administration Medical Decision Making Medical Decision Making [facility] Narrative: 52-year-old male presenting with chest pain and shortness of breath x 7 days getting worse today. PE w/ mild respiratory distress.? Breath sounds w/ b/l inspiratory and expiratory wheezing L>R .?90 % on RA placed on NC Likely viral illness vs bronchitis vs asthma vs chronic lung disease. Unlikley PE, PNA, ACS Plan- labs, UA, imaging Differential Diagnosis Differential Diagnoses: The differential diagnosis associated with the presentation includes Likely viral illness vs bronchitis vs asthma vs chronic lung disease. Unlikley PE, PNA, ACS Admission/Observation Consideration of admission/observation: Escalation of care including admission/observation considered Lab Data [facility] Lab Attestation statement: I reviewed the patient's lab results. 07/12/23 16:12 07/12/23 16:12 Labs: Lab Results 07/12/23 07/12/23 07/12/23 Range/Units 16:10 16:11 16:12 WBC 11.6 H (4.8-10.8) X10*3/uL RBC 4.82 (4.60-5.80) X10*6/uL Hgb 15.4 (14.0-18.0) g/dl Hct 46.3 (42.0-52.0) % MCV 96.1 (80.0-98.0) fL MCH 32.0 (27.0-33.0) pg MCHC 33.3 (31.0-36.0) g/dl RDW 12.4 (11.0-16.0) % Plt Count 382 (160-400) X10*3/uL MPV 8.6 L (9.4-12.4) fL Immature Gran % (Auto) 0.3 (0.0-0.4) % Neut % (Auto) 88.7 H (45-73) % Lymph % (Auto) 8.4 L (20-40) % [place] % (Auto) 1.5 L (2-11) % Eos % (Auto) 0.7 (0-4) % Baso % (Auto) 0.4 (0-2) % Lymph # (Auto) 1.0 L (1.2-4.9) X10*3/uL [place] # (Auto) 0.2 (0.1-1.2) X10*3/uL Eos # (Auto) 0.1 (0.0-0.4) X10*3/uL Baso # (Auto) 0.1 (0.0-0.2) X10*3/uL Abs Immat Gran (auto) 0.04 H (0.00-0.03) X10*3/uL Absolute Neuts (auto) 10.3 H (2.0-8.3) x10*3/uL Absolute Nucleated RBC 0.000 (0.0-0.012) X10*3/uL Nucleated RBC % (auto) 0.0 (0.0-0.2) /100WBC PT 11.2 (11.1-13.3) SEC INR 0.9 (0.9-1.1) D-Dimer High Sensitivty < 150 NG/ML Sodium 141 (135-145) mmol/L Potassium 3.9 (3.3-5.1) mmol/L Chloride 104 (96-108) mmol/L Carbon Dioxide 25 (22-29) mmol/L Anion Gap 16 (12-20) BUN 8 L (9-16) mg/dL Creatinine 0.79 (0.5-1.4) mg/dL Estim Creat Clear Calc 92.6 Estimated GFR > 60 Random Glucose 137 H (60-115) mg/dL Lactic Acid 1.7 (0.5-2.0) mmol/L Calcium 9.9 D (8.4-10.2) mg/dL Total Bilirubin 1.1 H (0.0-1.0) mg/dL AST 26 (5-37) U/L ALT 24 (0-40) U/L Alkaline Phosphatase 79 (39-117) U/L Troponin I High Sens < 2.7 (<3.5-35.0) ng/L B-Natriuretic Peptide 14 (<100) pg/mL Total Protein 8.2 H (6.5-8.0) g/dL Albumin 4.6 (3.5-5.0) g/dL COVID-19 (MARIFER) Negative (Negative) COVID-19 Clin Com See Note Influenza Type A (FAB) Negative (Negative) Influenza Type B (FAB) Negative (Negative) Influenza A & B Note See Note Independent Interpretation I performed an independent interpretation of an: EKG (Ventricular rate of 100, [place] normal, QRS normal, QT/QTC normal. No ST elevations or inversions concerning for acute ischemic) and Plain X-Ray (XR/XR chest 2V IMPRESSION: Hyperinflation may be seen with COPD. There is no focal lung consolidation or pleural effusion.) Radiology Impression Discussion of test interpretation with radiology: I have reviewed the radiologist's reading. Chronic Conditions Patient?s care impacted by: Other (asthma ) Critical Care Time Critical Care Time Critical Care Time: Yes Total Critical Care Time: 35 Attestation: I attest to this time spent taking care of the patient, obtaining history, physical, reviewing labs, imaging, speaking to my attending Discharge Plan Discharge Clinical Impression: Asthma, Hypoxia Patient Disposition: Admitted As Inpatient
--- NOTE | 2023-07-12 15:43 | ECG_ITS ---
Test Reason : CP Blood Pressure : / mmHG Vent. Rate : 100 BPM Atrial Rate : 100 BPM P-R Int : 134 ms QRS Dur : 072 ms QT Int : 346 ms P-R-T Axes : 087 074 076 degrees QTc Int : 446 ms Sinus tachycardia RSR' or QR pattern in V1 suggests right ventricular conduction delay Otherwise normal ECG When compared with ECG of 11-FEB-2023 12:56, No significant change was found Heart rate has increased Referred By: Adelita Olguin Electronically Signed By:WILLIAN QUINTEROS MD
[2023-07-12] MEDS: Albuterol Sulfate 5 MG, Albuterol/Iprat 2.5/0.5MG 3 ML 3 ML INHALE (16:01)
[2023-07-12 16:17] LABS: MANUAL DIFF FLAG NO
[2023-07-12 16:18] LABS: Basophils Absolute Auto 0.1 X10*3/uL (0.0-0.2); Basophils Percent Auto 0.4 % (0-2); Eosinophils Absolute Auto 0.1 X10*3/uL (0.0-0.4); Eosinophils Percent Auto 0.7 % (0-4); Hematocrit 46.3 % (42.0-52.0); Hemoglobin 15.4 g/dl (14.0-18.0); Imm Gran Abs Auto 0.04 X10*3/uL (0.00-0.03); Imm Gran Pct Auto 0.3 % (0.0-0.4); Lymphocytes Percent Auto 8.4 % (20-40); Mean Corpuscular HGB Conc 33.3 g/dl (31.0-36.0); Mean Corpuscular Volume 96.1 fL (80.0-98.0); Mean Platelet Volume 8.6 fL (9.4-12.4); Monocytes Absolute Auto 0.2 X10*3/uL (0.1-1.2); Monocytes Percent Auto 1.5 % (2-11); Neutrophils Absolute Auto 10.3 x10*3/uL (2.0-8.3); Neutrophils Percent Auto 88.7 % (45-73); Platelet Count 382 X10*3/uL (160-400); Red Blood Count 4.82 X10*6/uL (4.60-5.80); Red Cell Distribution Width 12.4 % (11.0-16.0); White Blood Count 11.6 X10*3/uL (4.8-10.8)
[2023-07-12 16:24] LABS: INTERNATIONAL NORM RATIO 0.9 (0.9-1.1); Prothrombin Time 11.2 SEC (11.1-13.3)
[2023-07-12 16:28] LABS: Lactic Acid 1.7 mmol/L (0.5-2.0)
[2023-07-12 16:33] LABS: Alanine Aminotransferase 24 U/L (0-40); Albumin Level 4.6 g/dL (3.5-5.0); Alkaline Phosphatase 79 U/L (39-117); Anion Gap 16 (12-20); Aspartate Amino Transferase 26 U/L (5-37); Bilirubin Total 1.1 mg/dL (0.0-1.0); Blood Urea Nitrogen 8 mg/dL (9-16); Calcium 9.9 mg/dL (8.4-10.2); Carbon Dioxide 25 mmol/L (22-29); Chloride 104 mmol/L (96-108); Creatinine Clr Calc Pharmacy 92.6; Estimated Glomerular Filt Rate > 60; Glucose Random 137 mg/dL (60-115); Potassium 3.9 mmol/L (3.3-5.1); Sodium 141 mmol/L (135-145); Total Protein 8.2 g/dL (6.5-8.0)
[2023-07-12 16:35] LABS: IDNOW Serial# BCCEAD1C; Influenza A Negative (Negative); Influenza B2 Negative (Negative)
[2023-07-12 16:36] LABS: COVID-19 Test Negative (Negative); IDNOW Serial# 08D9AD1C
[2023-07-12 16:38] LABS: B Type Natriuretic Peptide 14 pg/mL (<100)
[2023-07-12 16:41] LABS: Troponin-I High Sensitivity < 2.7 ng/L (<3.5-35.0)
[2023-07-12 16:54] LABS: D Dimer High Sensitivity < 150 NG/ML
[2023-07-12] MEDS: methylPREDNISolone Sod Succ 125 MG/2 ML VIAL IVPUSH (17:31)
[2023-07-12] MEDS: Magnesium Sulfate/H2O 2 GM/50 ML PIGGYBACK IV (17:31)
--- NOTE | 2023-07-12 18:29 | PHA.MEDREC ---
Pharmacy Consult ? Medication Reconciliation Pharmacy has completed the medication reconciliation. spoke with patient through an tint layer. He reports only using albuterol inhaler which he recently ran out of.
--- NOTE | 2023-07-12 18:29 | PM.IMHP ---
History of Present Illness Date of Service: 07/12/23 Attending physician on admission: Fred Negron Chief Complaint: sob 52-year-old male with history of asthma, cocaine abuse who is a current 5-6 cigarette per day smoker presented to the ED earlier today for evaluation of shortness of breath, wheezing, pleuritic chest pain that started yesterday. He reports symptoms worsen with ambulation. Has been using his albuterol inhaler without relief. Denies any fevers, chills, abdominal pain, nausea, vomiting, cough, lightheadedness, headaches, chest pressure. Denies any known sick contacts. In the ED, patient noted to be tachycardic to 105 following albuterol ministry galvez with oximetry 91-95% on room air. However, when ambulated, patient became diaphoretic, dyspneic, and desatted to 88% on room air. In ED, has a leukocytosis of 11.6, hematology studies otherwise unremarkable. Renal function electrolyte levels normal. Troponin undetectable, BNP 14. D-dimer below detectable limits. Negative for COVID-19, influenza. Chest x-ray negative for any acute cardiopulmonary abnormality but does show hyperinflated lung connor which may be seen with COPD. In the ED, has received 125 mg IV Solu-Medrol, DuoNeb, 2 g IV magnesium without relief. Review of Systems Review of Systems: General: No fevers, malaise, unintentional weight loss HEENT: No blurred vision, diplopia. No sore throat, nasal congestion, rhinorrhea, sinus pain, ear pain Cardiovascular: No chest pressure, palpitations, or leg edema Respiratory:+ shortness of breath, + wheezing. No cough GI: No abdominal pain, nausea, vomiting, diarrhea, constipation, melena, hematochezia : No dysuria, hematuria, increased urinary frequency, decreased urinary output MSK: No myalgia, back pain. +peluritic chest pain Neuro: No headaches, weakness, paresthesias Skin: No rashes or lesions [facility] Medical History Cocaine abuse Asthma Social History Alcohol intake: current Smoked in Last 30 Days: Yes Use of substances other than those prescribed or required for medical reasons: Yes Substance Use Type: Marijuana Advance Directives: No Advance Directives Information Provided: No Meds Allergies Allergy/AdvReac Type Severity Reaction Status Date / Time No Known Allergies Allergy Verified 08/07/21 10:02 [No Known Allergies*] Active Medications: Current Medications Acetaminophen (Acetaminophen 325 Mg Tablet) 650 mg PO Q6H PRN PRN Reason: Pain, Mild (Pain Scale 1-3) Albuterol Sulfate (Albuterol Sulfate (0.083%) 2.5 Mg/3 Ml Vial.Neb) 2.5 mg INHALE Q2H PRN PRN Reason: Shortness of Breath/Wheezing Albuterol/Ipratropium (Albuterol/Iprat 2.5/0.5mg 3 Ml Ampul.Neb) 3 ml INHALE RQ4H WHILE AWAKE MARICARMEN Docusate Sodium (Docusate Sodium 100 Mg Capsule) 100 mg PO DAILY PRN PRN Reason: Constipation Enoxaparin Sodium (Enoxaparin Sodium 40 Mg/0.4 Ml Syringe) 40 mg SUBCUT Q24H MARICARMEN Magnesium Sulfate (Magnesium Sulfate/H2o) 2 gm in 50 mls @ 25 mls/hr IV ONCE ONE Stop: 07/12/23 19:02 Last Admin: 07/12/23 17:31 Dose: 25 mls/hr Methylprednisolone Sodium Succinate (Methylprednisolone Sod Succ 40 Mg/Ml Vial) 40 mg IVPUSH Q12H MARICARMEN Ondansetron HCl (Ondansetron Hcl 4 Mg/2 Ml Vial) 4 mg IVPUSH Q8H PRN PRN Reason: Nausea and Vomiting Sodium Chloride (0.9 % Sodium Chloride Flush 3 Ml Syringe) 3 ml IVFLUSH QSHIFT MARICARMEN Physical Exam Vital Signs and Narrative: Vital Signs: Last Vital Signs Temp 98.4 F 07/12/23 15:36 Pulse 97 07/12/23 17:32 Resp 14 07/12/23 17:32 BP 128/72 07/12/23 15:36 Pulse Ox 96 07/12/23 17:32 O2 Del Method Nasal Cannula 07/12/23 17:32 O2 Flow Rate 2 07/12/23 17:32 BMI result Body Mass Index 22.8 Constitutional - Awake and Alert, No apparent distress Eyes - PERRLA, EOMI Cardiovascular - S1S2, RRR, No edema Respiratory - Normal lung expansion, Normal respiratory effort, No respiratory distress, CTA bilaterally Gastrointestinal - NT / ND; +BS; No rebound or guarding Extremities - no calf tenderness bilaterally, no swelling Skin - Warm/Dry Neurological - Alert & oriented x3 Psychological - Appropriate affect Results Labs 07/12/23 16:12 07/12/23 16:12 Labs: Laboratory Results - last 24 hr 07/12/23 07/12/23 07/12/23 16:10 16:11 16:12 MCV 96.1 MCH 32.0 MCHC 33.3 RDW 12.4 Plt Count 382 MPV 8.6 L Immature Gran % (Auto) 0.3 Neut % (Auto) 88.7 H Lymph % (Auto) 8.4 L [place] % (Auto) 1.5 L Eos % (Auto) 0.7 Baso % (Auto) 0.4 Lymph # (Auto) 1.0 L [place] # (Auto) 0.2 Eos # (Auto) 0.1 Baso # (Auto) 0.1 Abs Immat Gran (auto) 0.04 H Absolute Neuts (auto) 10.3 H Absolute Nucleated RBC 0.000 Nucleated RBC % (auto) 0.0 PT 11.2 INR 0.9 D-Dimer High Sensitivty < 150 Anion Gap 16 Estim Creat Clear Calc 92.6 Estimated GFR > 60 Random Glucose 137 H Lactic Acid 1.7 Calcium 9.9 D Total Bilirubin 1.1 H AST 26 ALT 24 Alkaline Phosphatase 79 B-Natriuretic Peptide 14 Total Protein 8.2 H Albumin 4.6 COVID-19 (MARIFER) Negative COVID-19 Clin Com See Note Influenza Type A (FAB) Negative Influenza Type B (FAB) Negative Influenza A & B Note See Note Imaging Radiologist's Impressions: Impressions Chest X-Ray 07/12/23 15:58 IMPRESSION: Hyperinflation may be seen with COPD. There is no focal lung consolidation or pleural effusion. Assessment and Plan (1) Asthma: Status: Acute (2) Exercise hypoxemia: Status: Acute Plan 52-year-old male with history of asthma, cocaine abuse who is a current 5-6 cigarette per day smoker to be observed for acute asthma exacerbation with exercise hypoxemia. # acute mild intermittent asthma exacerbation with exercise hypoxemia -possibly underlying COPD as well given hyperexpanded lungs on CXR -IV methylprednisolone 40 mg b.i.d. -DuoNebs q.4h -albuterol p.r.n. -CXR negative for pneumonia, negative for COVID-19 and influenza -recommend outpatient PFT # cocaine abuse -addiction medicine consult # cigarette smoker -cessation counseling -nicotine patch DVT prophylaxis-Lovenox Full code Time Spent With Patient Time: Total time managing care of this patient today ____ minutes. Quality Stroke Does the patient have a stroke diagnosis?: No VTE Prior VTE?: No VTE Risk Level:: Medical - moderate - high VTE Device Contraindication: Treatment Not Indicated VTE Drug Contraindication: N/A - Med Ordered
[2023-07-12] MEDS: Nicotine 7 MG PATCH.TD24 TRANSDERMA (19:24)
[2023-07-12] MEDS: Enoxaparin Sodium 40 MG/0.4 ML SYRINGE SUBCUT (19:24)
--- NOTE | 2023-07-12 19:29 | PC.NURSE ---
I assumed care of the pt at 1900. Pt resting quietly in bed at this time, monitoring analyst is in place. Pt is primarily Portuguese speaking, A&Ox4, GCS 15. Pt was medicated per NOV. Pt reports no pain, no trouble breathing. Pt has a patent 20g IV in the left AC. Pt waiting bed assignment at this time.
[2023-07-12] MEDS: Albuterol/Iprat 2.5/0.5MG 3 ML AMPUL.NEB INHALE (19:38)
[2023-07-12] MEDS: 0.9 % Sodium Chloride Flush 3 ML SYRINGE IVFLUSH (21:07)
[2023-07-12] MEDS: Albuterol Sulfate (0.083%) 2.5 MG/3 ML VIAL.NEB INHALE (22:24)
[2023-07-13] VITALS (10 sets, daily range): BP systolic 108–140; BP diastolic 56–78; PULSE 77–99; RESP 16–18; TEMP 36.2–37.1; O2SAT 92–100
[2023-07-13] MEDS: methylPREDNISolone Sod Succ 40 MG/ML VIAL IVPUSH ×2 (05:22→17:21)
[2023-07-13 05:31] LABS: MANUAL DIFF FLAG NO
[2023-07-13 05:35] LABS: Basophils Percent Auto 0.1 % (0-2); Hematocrit 42.8 % (42.0-52.0); Hemoglobin 14.5 g/dl (14.0-18.0); Imm Gran Abs Auto 0.02 X10*3/uL (0.00-0.03); Imm Gran Pct Auto 0.3 % (0.0-0.4); Lymphocytes Absolute Auto 0.9 X10*3/uL (1.2-4.9); Lymphocytes Percent Auto 12.4 % (20-40); Mean Corpuscular HGB Conc 33.9 g/dl (31.0-36.0); Mean Corpuscular Hemoglobin 32.4 pg (27.0-33.0); Mean Corpuscular Volume 95.7 fL (80.0-98.0); Mean Platelet Volume 8.6 fL (9.4-12.4); Monocytes Absolute Auto 0.3 X10*3/uL (0.1-1.2); Monocytes Percent Auto 4.2 % (2-11); Neutrophils Absolute Auto 5.8 x10*3/uL (2.0-8.3); Platelet Count 359 X10*3/uL (160-400); Red Blood Count 4.47 X10*6/uL (4.60-5.80); Red Cell Distribution Width 12.3 % (11.0-16.0); White Blood Count 6.9 X10*3/uL (4.8-10.8)
[2023-07-13 06:04] LABS: Anion Gap 13 (12-20); Blood Urea Nitrogen 12 mg/dL (9-16); Calcium 10.2 mg/dL (8.4-10.2); Carbon Dioxide 24 mmol/L (22-29); Chloride 106 mmol/L (96-108); Creatinine Clr Calc Pharmacy 96.2; Estimated Glomerular Filt Rate > 60; Glucose Random 135 mg/dL (60-115); Potassium 4.9 mmol/L (3.3-5.1); Sodium 138 mmol/L (135-145)
[2023-07-13] MEDS: 0.9 % Sodium Chloride Flush 3 ML SYRINGE IVFLUSH ×3 (07:57→20:35)
[2023-07-13] MEDS: Nicotine 7 MG PATCH.TD24 TRANSDERMA (07:57)
[2023-07-13] MEDS: Albuterol/Iprat 2.5/0.5MG 3 ML AMPUL.NEB INHALE ×4 (08:06→19:45)
--- NOTE | 2023-07-13 10:03 | PM.EVENT ---
Event Note Date of Service: 07/13/23 Event Note: 52-year-old male with history of asthma, cocaine abuse who is a current 5-6 cigarette per day smoker to be observed for acute asthma exacerbation with exercise hypoxemia. Acute hypoxic respiratory failure secondary to acute mild intermittent asthma exacerbation initially hypoxic to 89% still wheezing continue IV methylprednisolone 40 mg b.i.d. and scheduled/prn duonebs CXR negative for pneumonia, negative for COVID-19 and influenza recommend outpatient PFT cocaine abuse addiction medicine consult Cigarette smoker cessation counseling nicotine patch DVT prophylaxis-Lovenox Attending Dr. Gamble Full code Time Spent With Patient Time: Total time managing care of this patient today ____ minutes.
--- NOTE | 2023-07-13 13:33 | MHC.RECOVRN ---
client server developer met with patient for Addiction Medicine consult for Cocaine Use in bed 377-1 with [employer]. Patient is currently laying in bed, finishing up a nebulizer treatment. He came into the ER yesterday with chest pain and respiratory concerns. Patient reports that he snorts cocaine maybe once a week . He uses 1/2-1 baggy per day. Never really uses the whole bag . Last used on . He reports he started using a few years ago . He does not feel he has a dependency on cocaine and does not feel he needs additional support with abstinence. At this time, he denies any s/s of withdrawal. He states I don't need to do it. I feel like I can just stop on my own. I don't do a lot and I don't do it all the time. Patient also reports drinking alcohol 2-3x/week- usually Heineken beers.. 2 or 3 . Last drink was Friday afternoon. He denies any withdrawal symptoms. He does not feel he needs additional support with alcohol withdrawal. He does not feel he has a dependency. Declines any additional supports from Recovery Team. Provided him with resources (in [place]) if he decides otherwise. Discussed w/Angeline Soto APRN.
--- NOTE | 2023-07-13 16:47 | MHC.CM.PN ---
CM MET WITH PT WITH INDEPENDENT [employer]OP CONSULTANT PT LIVES ALONE AND IS INDEPENDENT WITH CARE HE DENIES USE OF HOME OR COMMUNITY SERVICES PT HAS A NEBULIZER FOR DME PT DOES NOT HAVE A PCP, INFO ON HOW TO OBTAIN ONE PROVIDED ALONG WITH PCP LIST PT DECLINES TO COMPLETE A HCP OBSERVATION NOTICE DELIVERED DCP: HOME NO SERVICES CAR IS IN LOT
[2023-07-13] MEDS: Enoxaparin Sodium 40 MG/0.4 ML SYRINGE SUBCUT (17:21)
[2023-07-14 04:00] VITALS: BP 128/80; PULSE 85; RESP 16; TEMP 36.9; O2SAT 95
[2023-07-14] MEDS: methylPREDNISolone Sod Succ 40 MG/ML VIAL IVPUSH (06:04)
[2023-07-14 07:09] VITALS: BP 120/68; PULSE 73; RESP 18; TEMP 36.7; O2SAT 95
[2023-07-14 07:14] LABS: Anion Gap 13 (12-20); Blood Urea Nitrogen 14 mg/dL (9-16); Calcium 9.6 mg/dL (8.4-10.2); Carbon Dioxide 25 mmol/L (22-29); Chloride 103 mmol/L (96-108); Creatinine Clr Calc Pharmacy 96.2; Estimated Glomerular Filt Rate > 60; Glucose Random 101 mg/dL (60-115); Sodium 137 mmol/L (135-145)
[2023-07-14 07:38] VITALS: PULSE 83; RESP 18; O2SAT 97
[2023-07-14] MEDS: Albuterol/Iprat 2.5/0.5MG 3 ML AMPUL.NEB INHALE ×2 (07:38→11:40)
[2023-07-14] MEDS: Nicotine 7 MG PATCH.TD24 TRANSDERMA (08:10)
[2023-07-14] MEDS: 0.9 % Sodium Chloride Flush 3 ML SYRINGE IVFLUSH (08:10)
--- NOTE | 2023-07-14 08:42 | MHC.CM.PN ---
PT WILL DC HOME TODAY WITH NO SERVICES CAR IS IN LOT
--- NOTE | 2023-07-14 08:46 | P.DS_ITS ---
DS: Providers Provider Date of Service: 07/14/23 Date of admission: 07/12/23 18:26 Primary care physician: Unknown Physician Consults: 07/12/23 18:35 Addiction Medicine Routine Consulting Provider: Addiction Covering Reason for consultation: cocaine abuse DS: Diagnosis Discharge Diagnosis (1) Asthma: Status: Acute (2) Exercise hypoxemia: Status: Acute DS: Summary Hospital Course Hospital Course: 52-year-old male with history of asthma, cocaine abuse who is a current 5-6 cigarette per day smoker presented to the ED earlier today for evaluation of geena rtness of breath, wheezing, pleuritic chest pain that started yesterday. He reports symptoms worsen with ambulation. Has been using his albuterol inhaler without relief. Denies any fevers, chills, abdominal pain, nausea, vomiting, cough, lightheadedness, headaches, chest pressure. Denies any known sick contacts. In the ED, patient noted to be tachycardic to 105 following albuterol [facility] gal[facility] with oximetry 91-95% on room air. However, when ambulated, patient became diaphoretic, dyspneic, and desatted to 88% on room air. In ED, has a leukocytosis of 11.6, hematology studies otherwise unremarkable. Renal function electrolyte levels normal. Troponin undetectable, BNP 14. D-dimer below detectable limits. Negative for COVID-19, influenza. Chest x-ray negative for any acute cardiopulmonary abnormality but does show hyperinflated lung connor which may be seen with COPD. In the ED, has received 125 mg IV Solu-Medrol, DuoNeb, 2 g IV magnesium without relief. 52-year-old man treated for acute hypoxic respiratory failure secondary to acute asthma exacerbation. Treated with IV steroids, scheduled DuoNeb treatments and supplemental oxygen as needed. Patient this point has no shortness of breath, very mild cough, very mild expiratory wheezing. Out of bed ambulating with no hypoxia noted. Plan will be for discharge home with prescriptions for albuterol inhaler, DuoNeb solution and prednisone taper. He was also encouraged to quit smoking cigarettes and will be sent home with a prescription for nicotine patches. Cocaine abuse. Encouraged to stop using as this can also exacerbate/aggravate his asthma. Seek resources out in the community for help with cessation. Time Spent with Patient Time attestation: Total time managing care of this patient today ____ minutes. Discharge coordination time: Greater than 30 minutes Quality: Safe Use of Opioids Does Pt have an Active Cancer Diagnosis on the Problem List?: No Quality: Stroke Does the patient have a stroke diagnosis?: No Physical Exam Vital Signs: Vital Signs: Last Vital Signs Temp 98.0 F 07/14/23 07:09 Pulse 83 07/14/23 07:38 Resp 18 07/14/23 07:38 BP 120/68 07/14/23 07:09 Pulse Ox 95 07/14/23 07:09 O2 Del Method Room Air 07/14/23 07:09 O2 Flow Rate 2 07/12/23 17:32 BMI result Body Mass Index 22.8 Appearing in no acute distress head is normocephalic atraumatic eyes pupils are PERRLA sclera is anicteric mouth throat mucous membranes are intact and moist neck is supple no lymphadenopathy, no JVD noted lung sounds mild expiratory wheezing heart regular rate rhythm, clear S1, S2 positive bowel sounds, abdomen is soft, nontender neuro patient is alert x3, no focal deficits DS: Data Data Completed and Pending Labs on day of discharge: Laboratory Results - last 24 hr 07/14/23 07/14/23 07/14/23 06:23 06:40 06:42 Hold Purple Top SEE NOTE Cancelled Sodium 137 Potassium 4.0 Chloride 103 Carbon Dioxide 25 Anion Gap 13 BUN 14 Creatinine 0.76 Estim Creat Clear Calc 96.2 Estimated GFR > 60 Random Glucose 101 Calcium 9.6 07/14/23 06:44 Hold Purple Top Cancelled Sodium Potassium Chloride Carbon Dioxide Anion Gap BUN Creatinine Estim Creat Clear Calc Estimated GFR Random Glucose Calcium Preliminary micro results at discharge 07/12/23 16:18 Blood Culture - Preliminary Blood - Venous No growth after 24 hours. 07/12/23 16:12 Blood Culture - Preliminary Blood - Venous No growth after 24 hours. Discharge Plan Discharge Anticipated Discharge Date/Time: 07/14/23 08:31 Patient Disposition: Home, Self-Care Discharge Diagnosis: Asthma exacerbation Hypoxemic respiratory failure Discharge Medications: New ipratropium-albuterol 0.5 mg-3 mg(2.5 mg base)/3 mL Solution For Nebulization 3 ml inhalation RQ4H WHILE AWAKE Qty: 90 0RF nicotine 7 mg/24 hr Patch 24 Hour 7 mg transdermal DAILY Qty: 7 0RF prednisone 10 mg tablet See Taper PO DIRECTED Qty: 20 0RF Taper: Prednisone 40 mg daily for 2 Days and 0 Hour 30 mg daily for 2 Days and 0 Hour 20 mg daily for 2 Days and 0 Hour 10 mg daily for 2 Days and 0 Hour Rx Instructions: see taper instructions Continued albuterol sulfate [Ventolin HFA] 90 mcg/actuation HFA aerosol inhaler 2 puff inhalation Q4-6H PRN (Reason: shortness of breath or wheezing) Qty: 8.5 0RF Discharge Orders: Discharge Order (Routine); Ordered 07/14/23 Ordered By: Lara Graf Diet: Advance to usual diet Activity on Discharge: As tolerated Stand Alone Forms: Patient Portal Discharge page Care Plan Goals: Stop smoking cigarettes, use nicotine replacement therapy. Seek out outpatient resources for help with continued cessation Health Concerns: Asthma exacerbation Acute hypoxic respiratory failure Plan of Treatment: Follow-up with primary care provider as needed Take all medications as prescribed Assessment: See discharge summary
--- NOTE | 2023-07-14 11:00 | PC.NURSE ---
Latoya from [facility] assisted with discharge instructions
[2023-07-14 11:41] VITALS: PULSE 88; RESP 18; O2SAT 98
== END 2023-07-14 12:17 | disposition home or self-care (01) ==
LOC: HO.ED 17:05 → HO.EDOVER 18:38 → HO.S3 19:42
PROVIDERS: Nurse Practitioner Family; Physician Assistant; Admitting Provider Physician Assistant; Emergency Provider Internal Medicine; Visit Provider Nurse Practitioner Acute Care
DX: J45.21 Mild intermittent asthma with (acute) exacerbation (principal); J96.01 Acute respiratory failure with hypoxia; F14.10 Cocaine abuse, uncomplicated; F17.210 Nicotine dependence, cigarettes, uncomplicated; Z11.52 Encounter for screening for COVID-19
CPT/HCPCS: 36415; 71046; 80048; 80053; 83605; 83880; 84484; 85025; 85379; 85610; 87040; 87502; 87635; 93005; 94640; 96365; 96366; 96372; 96375; 96376; 99221; 99285; J1650; J2920; J2930; J3475

== ENCOUNTER → 2023-07-12 18:26 | Outpatient (BNV) | payer MEDICAID, SELFPAY | PROVIDERS: Admitting Provider Physician Assistant; Emergency Provider Internal Medicine; Visit Provider Physician Assistant | DX: J45.909 Unspecified asthma, uncomplicated (principal); R09.02 Hypoxemia | CPT/HCPCS: 99222; 99239; 99499 ==

== ENCOUNTER 2023-10-13 09:47 | Outpatient (REF) | payer MEDICAID, SELFPAY ==
[2023-10-13 11:15] LABS: MANUAL DIFF FLAG NO
[2023-10-13 11:31] LABS: Basophils Absolute Auto 0.1 X10*3/uL (0.0-0.2); Eosinophils Absolute Auto 0.1 X10*3/uL (0.0-0.4); Eosinophils Percent Auto 2.3 % (0-4); Lymphocytes Absolute Auto 1.5 X10*3/uL (1.2-4.9); Lymphocytes Percent Auto 29.4 % (20-40); Mean Corpuscular HGB Conc 32.7 g/dl (31.0-36.0); Mean Corpuscular Hemoglobin 32.8 pg (27.0-33.0); Mean Corpuscular Volume 100.4 fL (80.0-98.0); Monocytes Absolute Auto 0.6 X10*3/uL (0.1-1.2); Monocytes Percent Auto 10.6 % (2-11); Neutrophils Percent Auto 56.7 % (45-73); Platelet Count 338 X10*3/uL (160-400); Red Blood Count 5.18 X10*6/uL (4.60-5.80); Red Cell Distribution Width 12.9 % (11.0-16.0); White Blood Count 5.2 X10*3/uL (4.8-10.8)
[2023-10-13 11:53] LABS: Estimated Average Glucose 80 mg/dL; Hemoglobin A1c % 4.4 % (<6.0)
[2023-10-13 11:57] LABS: Anion Gap 14 (12-20); Blood Urea Nitrogen 5 mg/dL (9-16); Calcium 9.5 mg/dL (8.4-10.2); Carbon Dioxide 26 mmol/L (22-29); Chloride 106 mmol/L (96-108); Estimated Glomerular Filt Rate > 60; Glucose Random 72 mg/dL (60-115); Potassium 4.8 mmol/L (3.3-5.1); Sodium 141 mmol/L (135-145)
[2023-10-13 13:18] LABS: HIV AB/AG Nonreactive (Nonreactive); HIV Num 1 0.04 S/CO (0.00-0.99); ~HepC Num1 0.25 S/CO (0.00-0.79); ~Hepatitis C Antibody Nonreactive (Nonreactive)
== END 2023-10-13 09:48 | disposition home or self-care (01) ==
LOC: HO.HHCL 09:47
PROVIDERS: Visit Provider Internal Medicine
DX: Z00.00 Encounter for general adult medical examination without abnormal findings (principal)
CPT/HCPCS: 36415; 80048; 83036; 85025; 86803; 87389

== ENCOUNTER 2023-12-17 11:34 | Outpatient (REF) | payer MEDICAID, SELFPAY ==
[2023-12-17 13:21] LABS: MANUAL DIFF FLAG NO
[2023-12-17 13:42] LABS: Basophils Absolute Auto 0.1 X10*3/uL (0.0-0.2); Basophils Percent Auto 0.6 % (0-2); Eosinophils Absolute Auto 0.2 X10*3/uL (0.0-0.4); Eosinophils Percent Auto 1.9 % (0-4); Hematocrit 48.8 % (42.0-52.0); Hemoglobin 15.6 g/dl (14.0-18.0); Imm Gran Abs Auto 0.05 X10*3/uL (0.00-0.03); Imm Gran Pct Auto 0.5 % (0.0-0.4); Lymphocytes Percent Auto 20.6 % (20-40); Mean Corpuscular Hemoglobin 31.6 pg (27.0-33.0); Mean Platelet Volume 9.3 fL (9.4-12.4); Monocytes Absolute Auto 0.9 X10*3/uL (0.1-1.2); Monocytes Percent Auto 9.5 % (2-11); Neutrophils Absolute Auto 6.4 x10*3/uL (2.0-8.3); Neutrophils Percent Auto 66.9 % (45-73); Platelet Count 416 X10*3/uL (160-400); Red Blood Count 4.93 X10*6/uL (4.60-5.80); Red Cell Distribution Width 12.6 % (11.0-16.0); White Blood Count 9.6 X10*3/uL (4.8-10.8)
[2023-12-17 14:16] LABS: Alanine Aminotransferase 28 U/L (0-40); Albumin Level 3.8 g/dL (3.5-5.0); Alkaline Phosphatase 90 U/L (39-117); Anion Gap 11 (12-20); Aspartate Amino Transferase 26 U/L (5-37); Bilirubin Total 0.5 mg/dL (0.0-1.0); Blood Urea Nitrogen 9 mg/dL (9-16); Calcium 9.1 mg/dL (8.4-10.2); Carbon Dioxide 26 mmol/L (22-29); Chloride 107 mmol/L (96-108); Estimated Glomerular Filt Rate > 60; Glucose Random 102 mg/dL (60-115); Lipase 60 U/L (8-78); Sodium 139 mmol/L (135-145); Total Protein 7.6 g/dL (6.5-8.0)
[2023-12-17 15:47] LABS: Amylase 94 U/L (28-100)
[2023-12-18 06:54] LABS: HBS Num1 0.12 mIU/mL (0-7.99); HBc Num1 0.23 S/CO (0.00-0.79); HBsAGNum1 0.37 S/CO (0.00-0.99); Hepatitis A Antibody IgM 0.13 Index (0-0.79); Hepatitis B Core Antibody Nonreactive (Nonreactive); Hepatitis B Surface Antigen Negative (Negative); ~HepC Num1 0.25 S/CO (0.00-0.79); ~Hepatitis A Antibody IgM Nonreactive (Nonreactive); ~Hepatitis B Surface Antibody NONREACTIVE (Nonreactive); ~Hepatitis C Antibody Nonreactive (Nonreactive)
== END 2023-12-17 11:35 | disposition home or self-care (01) ==
LOC: HO.HHCL 11:34
PROVIDERS: Visit Provider Emergency Medicine
DX: R10.9 Unspecified abdominal pain (principal)
CPT/HCPCS: 36415; 80053; 82150; 83690; 85025; 86704; 86706; 86709; 86803; 87340

== ENCOUNTER 2023-12-28 23:56 | Emergency (ER) | payer MEDICAID, SELFPAY ==
--- NOTE | ~2023-12-28 | XR_ITS ---
EXAMINATION: XR CHEST CLINICAL INFORMATION: Shortness of breath. COMPARISON: 07/12/2023. TECHNIQUE: 2 views of the chest were obtained. FINDINGS: The cardiomediastinal silhouette is stable. The lung connor are again seen to be hyperinflated. There is no focal lung consolidation or pleural effusion. The bony structures and soft tissues are unremarkable. XR/XR chest 2V IMPRESSION: No active cardiopulmonary disease. No significant interval change.
[2023-12-29] VITALS (8 sets, daily range): BP systolic 108–119; BP diastolic 56–66; PULSE 82–109; RESP 14–20; TEMP 37.3–38.5; O2SAT 94–100; BMI 23.3
[2023-12-29 00:30] LABS: MANUAL DIFF FLAG NO
[2023-12-29 00:34] LABS: Basophils Percent Auto 0.5 % (0-2); Eosinophils Absolute Auto 0.1 X10*3/uL (0.0-0.4); Eosinophils Percent Auto 1.3 % (0-4); Hematocrit 41.5 % (42.0-52.0); Hemoglobin 13.9 g/dl (14.0-18.0); Imm Gran Abs Auto 0.03 X10*3/uL (0.00-0.03); Imm Gran Pct Auto 0.5 % (0.0-0.4); Lymphocytes Absolute Auto 1.6 X10*3/uL (1.2-4.9); Lymphocytes Percent Auto 26.5 % (20-40); Mean Corpuscular HGB Conc 33.5 g/dl (31.0-36.0); Mean Corpuscular Volume 95.6 fL (80.0-98.0); Monocytes Absolute Auto 0.8 X10*3/uL (0.1-1.2); Monocytes Percent Auto 12.7 % (2-11); Neutrophils Absolute Auto 3.6 x10*3/uL (2.0-8.3); Neutrophils Percent Auto 58.5 % (45-73); Platelet Count 306 X10*3/uL (160-400); Red Blood Count 4.34 X10*6/uL (4.60-5.80); Red Cell Distribution Width 12.8 % (11.0-16.0); White Blood Count 6.2 X10*3/uL (4.8-10.8)
[2023-12-29 00:44] LABS: Alanine Aminotransferase 20 U/L (0-40); Albumin Level 3.5 g/dL (3.5-5.0); Alkaline Phosphatase 77 U/L (39-117); Anion Gap 12 (12-20); Aspartate Amino Transferase 21 U/L (5-37); Bilirubin Total 0.6 mg/dL (0.0-1.0); Blood Urea Nitrogen 9 mg/dL (9-16); Calcium 8.5 mg/dL (8.4-10.2); Carbon Dioxide 24 mmol/L (22-29); Chloride 107 mmol/L (96-108); Creatinine Clr Calc Pharmacy 93.9; Estimated Glomerular Filt Rate > 60; Glucose Random 109 mg/dL (60-115); Potassium 3.3 mmol/L (3.3-5.1); Sodium 140 mmol/L (135-145); Total Protein 7.1 g/dL (6.5-8.0)
[2023-12-29 01:07] LABS: Influenza A PCR NEGATIVE (Negative); Influenza B PCR NEGATIVE (Negative); Resp Syncy Virus RNA Qual PCR NEGATIVE (Negative); SARS COV2 PCR INHOUSE NEGATIVE (Negative)
[2023-12-29] MEDS: Albuterol Sulfate 5 MG, Albuterol Sulfate (0.083%) 2.5 MG 7.5 MG INHALE (03:19)
--- NOTE | 2023-12-29 04:01 | PC.NURSE ---
pt now febrile reporting chills/n/v, pt had 1 episode of vomiting since arrival. Dr. Murphy made aware.
--- NOTE | 2023-12-29 04:40 | PC.NURSE ---
handover report given to relief charge nurse.
--- NOTE | 2023-12-29 04:45 | ED.URI ---
HPI - URI/Sore Throat General Chief Complaint: Upper Respiratory Symptoms Stated Complaint: asthma, fever and sore throat Time Seen by Provider: 12/29/23 04:33 Source: patient and other (Girlfriend) Mode of arrival: ambulatory Limitations: language barrier (Irish speaking only, glove brusher used) History of Present Illness HPI Narrative: 53-year-old male with a history of asthma and lower back pain who presents emergency department for evaluation of fever, chills, sore throat, cough, chest pain and shortness of breath x2 days. The patient states he has a cough which is productive of thick brown phlegm. He states that he has pain in his chest with coughing and with breathing. He feels short of breath at rest and with exertion. He states that his cough is severe and caused him to vomit. He denied or diarrhea he denied myalgias or arthralgias. Patient has a history of asthma but states he ran out of his inhaler and his nebulizer solution, Related Data Previous Rx's ?Medication ?Instructions ?Recorded albuterol sulfate 90 mcg/actuation 2 puff inhalation Q4-6H PRN 07/14/23 aerosol inhaler (Ventolin HFA) shortness of breath or wheezing #8.5 grams ipratropium 0.5 mg-albuterol 3 mg 3 ml inhalation RQ4H WHILE AWAKE 07/14/23 (2.5 mg base)/3 mL nebulization #90 mL soln nicotine 7 mg/24 hr daily 7 mg transdermal DAILY #7 ea 07/14/23 transdermal patch prednisone 10 mg tablet See Taper PO DIRECTED #20 tabs 07/14/23 albuterol sulfate 2.5 mg/3 mL 2.5 mg (3 mL) inhalation Q4-6H PRN 12/29/23 (0.083 %) solution for nebulization shortness of breath or wheezing #75 mL albuterol sulfate 90 mcg/actuation 2 puff inhalation Q4-6H PRN 12/29/23 aerosol inhaler shortness of breath or wheezing #8.5 grams amoxicillin 500 mg capsule 1,000 mg (2 x 500 mg) PO BID 5 12/29/23 days #20 caps prednisone 20 mg tablet 60 mg (3 x 20 mg) PO DAILY 5 days 12/29/23 #15 tabs Allergies Allergy/AdvReac Type Severity Reaction Status Date / Time No Known Allergies Allergy Verified 12/29/23 00:12 [No Known Allergies*] Review of Systems Review of Systems: Yes all other systems are reviewed and are negative ON LICENSE OF [facility] Past Medical History ON LICENSE OF [facility] Narrative: Social history: Patient does smoke cigarettes. He occasionally drinks alcohol. He smokes marijuana daily Medical History Cocaine abuse Asthma Social History Social History Alcohol intake: current Alcohol intake frequency: does not drink Patient Tobacco Use Status: Current everyday Tobacco user Tobacco use type: Cigarette Smoked in Last 30 Days: Yes Second Hand Smoke Exposure: No Use of substances other than those prescribed or required for medical reasons: No Substance Use Type: Marijuana Advance Directives: No Advance Directives Information Provided: Yes service: No Physical Exam Vital Signs: Vital Signs: Last Vital Signs Temp 99.1 F 12/29/23 07:33 Pulse 82 12/29/23 07:33 Resp 14 12/29/23 07:33 BP 119/60 12/29/23 07:33 Pulse Ox 96 12/29/23 07:33 O2 Del Method Room Air 12/29/23 07:33 BMI result Body Mass Index 23.3 Vital signs revealed a fever of 101.3 otherwise Exam: General: Awake, alert in no distress Head: Normocephalic, atraumatic EENT: PERRL, Lids normal, sclera normal, conjunctiva normal, nose normal , ears normal, throat without erythema or exudates Neck: Supple, no adenopathy Lung: Diffuse wheezing and rhonchi, no rales, breath sounds symmetric bilaterally Chest: symmetric movement, nontender Heart: regular rate and rhythm, normal S1, S2 no murmurs or rubs Abdomen: soft, non-tender, nondistended, normal bowel sounds Back: no vertebral tenderness, no CVAT Extremities: no deformities, moves all extremities symmetrically Neuro: Awake, alert, oriented, normal speech, cranial nerves intact, moves all extremities symmetrically Psych: Pleasant, cooperative Medications Administered Discontinued Medications Generic Name Dose Route Start Last Admin Trade Name Freq PRN Reason Stop Dose Admin Acetaminophen 975 mg 12/29/23 04:36 12/29/23 05:33 Acetaminophen 325 Mg Tablet PO 12/29/23 04:37 975 mg ONCE ONE Administration Albuterol Sulfate 5 mg/ 7.5 mg 12/29/23 03:14 12/29/23 03:19 Albuterol Sulfate 2.5 mg INHALE 12/29/23 03:15 7.5 mg ONCE ONE Administration Amoxicillin 1,000 mg 12/29/23 04:45 12/29/23 05:34 Amoxicillin 500 Mg Capsule PO 12/29/23 04:46 1,000 mg ONCE ONE Administration Sodium Chloride 1,000 mls @ 999 mls/hr 12/29/23 04:45 12/29/23 05:30 Ns IV 12/29/23 05:45 999 mls/hr .Q1H1M STA Administration Methylprednisolone Sodium Succinate 125 mg 12/29/23 04:45 12/29/23 05:34 Methylprednisolone Sod Succ 125 Mg/2 Ml Vial IVPUSH 12/29/23 04:46 125 mg ONCE ONE Administration Medical Decision Making Medical Decision Making MDM Narrative: 53-year-old male with a history of asthma, lower back pain, tobacco use disorder and marijuana use disorder who presents emergency department for evaluation of fever, chills, sore throat, cough, chest pain, shortness of breath x2 days. Vital signs did reveal fever otherwise unremarkable. Lung exam revealed diffuse wheezing and rhonchi with symmetric breath sounds. Differential diagnosis: ?Includes but is not limited to pneumonia, bronchitis, pharyngitis, viral syndrome, COVID-19, influenza, RSV, asthma exacerbation Following evaluation was ordered: CBC, CMP, COVID-19, RSV, influenza, chest x-ray two view Patient was initially treated with the following: Bronchodilator protocol-albuterol 7.5 mg per nebulizer, Solu-Medrol 125 mg IV, Tylenol 975 mg orally, amoxicillin 1000 mg orally, normal saline x1 L Course: 07:13 My interpretation patient's laboratory evaluation as follows: WBC normal, CMP normal, COVID-19, influenza and RSV were negative My interpretation patient's chest x-ray is as follows: No acute infiltrates noted Patient feels better after the above treatment. Patient will be treated with amoxicillin 1000 mg q.12 hours x7 day, prednisone 60 mg once a day for 5 days, albuterol inhaler and albuterol nebulizer for acute bronchitis and asthma exacerbation He was given printed and verbal instructions and discharged home 07:37 Just prior to discharge the patient states that he felt his asthma was coming back. I did listen to him any has some slight wheezing but good inspiratory and expiratory flow. The patient was given albuterol inhaler 4 puffs with improvement of his wheezing, he was discharged home Admission/Observation Consideration of admission/observation: Escalation of care including admission/observation considered Lab Data MDM Lab Attestation statement: I reviewed the patient's lab results. 12/29/23 00:26 12/29/23 00:26 Labs: Lab Results 12/29/23 Range/Units 00:26 WBC 6.2 (4.8-10.8) X10*3/uL RBC 4.34 L (4.60-5.80) X10*6/uL Hgb 13.9 L (14.0-18.0) g/dl Hct 41.5 L (42.0-52.0) % MCV 95.6 (80.0-98.0) fL MCH 32.0 (27.0-33.0) pg MCHC 33.5 (31.0-36.0) g/dl RDW 12.8 (11.0-16.0) % Plt Count 306 D (160-400) X10*3/uL MPV 9.0 L (9.4-12.4) fL Immature Gran % (Auto) 0.5 H (0.0-0.4) % Neut % (Auto) 58.5 (45-73) % Lymph % (Auto) 26.5 (20-40) % [place] % (Auto) 12.7 H (2-11) % Eos % (Auto) 1.3 (0-4) % Baso % (Auto) 0.5 (0-2) % Lymph # (Auto) 1.6 (1.2-4.9) X10*3/uL [place] # (Auto) 0.8 (0.1-1.2) X10*3/uL Eos # (Auto) 0.1 (0.0-0.4) X10*3/uL Baso # (Auto) 0.0 (0.0-0.2) X10*3/uL Abs Immat Gran (auto) 0.03 (0.00-0.03) X10*3/uL Absolute Neuts (auto) 3.6 (2.0-8.3) x10*3/uL Absolute Nucleated RBC 0.000 (0.0-0.012) X10*3/uL Nucleated RBC % (auto) 0.0 (0.0-0.2) /100WBC Sodium 140 (135-145) mmol/L Potassium 3.3 D (3.3-5.1) mmol/L Chloride 107 (96-108) mmol/L Carbon Dioxide 24 (22-29) mmol/L Anion Gap 12 (12-20) BUN 9 (9-16) mg/dL Creatinine 0.80 (0.5-1.4) mg/dL Estim Creat Clear Calc 93.9 Estimated GFR > 60 Random Glucose 109 (60-115) mg/dL Calcium 8.5 D (8.4-10.2) mg/dL Total Bilirubin 0.6 (0.0-1.0) mg/dL AST 21 (5-37) U/L ALT 20 (0-40) U/L Alkaline Phosphatase 77 (39-117) U/L Total Protein 7.1 (6.5-8.0) g/dL Albumin 3.5 (3.5-5.0) g/dL Influenza Type A (PCR) NEGATIVE (Negative) Influenza Type B (PCR) NEGATIVE (Negative) RSV RNA Qual (PCR) NEGATIVE (Negative) SARS-CoV-2 RNA (RT-PCR) NEGATIVE (Negative) Independent Interpretation I performed an independent interpretation of an: Plain X-Ray Interpretation: My independent interpretation patient's chest x-ray is as follows: No acute infiltrates Radiology Impression Discussion of test interpretation with radiology: I have reviewed the radiologist's reading. Radiologist Impression: XR chest 2V IMPRESSION: No active cardiopulmonary disease. No significant interval change. Dictated By: Almas Marques Independent Historian Clinical information obtained from an independent historian. History obtained from or confirmed by: Spouse Prescription Management I considered prescription management with: Antibiotic and Other (Steroids and bronchodilators) Discharge Plan Discharge Clinical Impression: Acute bronchitis, Asthma exacerbation Patient Disposition: Home, Self-Care Additional Instructions: Your blood work was normal. Your COVID-19, influenza and RSV tests were negative Your symptoms are consistent with bronchitis. Take amoxicillin 500 mg pills, 2 pills every 12 hours for 7 days Take prednisone 20 mg pills, 3 pills once a day for 5 days. While you ?are taking prednisone, do not take any NSAIDs (Motrin, Advil, ibuprofen, Aleve, naproxen). Use the albuterol inhaler with the spacer, 2 puffs every 4-6 hours as needed for shortness of breath and wheezing. Use the albuterol nebulizer solution every 4-6 hours as needed for shortness of breath not relieved by your inhaler Follow-up with your doctor in 2 days. Please return to the emergency department if your symptoms get worse or if you develop any symptoms that are concerning to you. Prescriptions: New amoxicillin 500 mg capsule 1,000 mg PO BID 5 Days Qty: 20 0RF albuterol sulfate 2.5 mg /3 mL (0.083 %) solution for nebulization 2.5 mg inhalation Q4-6H PRN (Reason: shortness of breath or wheezing) Qty: 75 0RF prednisone 20 mg tablet 60 mg PO DAILY 5 Days Qty: 15 0RF albuterol sulfate 90 mcg/actuation HFA aerosol inhaler 2 puff inhalation Q4-6H PRN (Reason: shortness of breath or wheezing) Qty: 8.5 0RF No Action ipratropium-albuterol 0.5 mg-3 mg(2.5 mg base)/3 mL Solution For Nebulization 3 ml inhalation RQ4H WHILE AWAKE Qty: 90 0RF nicotine 7 mg/24 hr Patch 24 Hour 7 mg transdermal DAILY Qty: 7 0RF prednisone 10 mg tablet See Taper PO DIRECTED Qty: 20 0RF Taper: Prednisone 40 mg daily for 2 Days and 0 Hour 30 mg daily for 2 Days and 0 Hour 20 mg daily for 2 Days and 0 Hour 10 mg daily for 2 Days and 0 Hour Rx Instructions: see taper instructions albuterol sulfate [Ventolin HFA] 90 mcg/actuation HFA aerosol inhaler 2 puff inhalation Q4-6H PRN (Reason: shortness of breath or wheezing) Qty: 8.5 0RF Print Language: Irish
[2023-12-29] MEDS: 0.9 % Sodium Chloride 1,000 ML 999 ML IV (05:30)
[2023-12-29] MEDS: Acetaminophen 325 MG TABLET 975 MG PO (05:33)
[2023-12-29] MEDS: methylPREDNISolone Sod Succ 125 MG/2 ML VIAL IVPUSH (05:34)
[2023-12-29] MEDS: Amoxicillin 500 MG CAPSULE 1000 MG PO (05:34)
[2023-12-29] MEDS: Albuterol Sulfate 90 MCG 8 GM INHALER 4 PUFF INHALE (07:41)
== END 2023-12-29 07:44 | disposition home or self-care (01) ==
PROVIDERS: Emergency Provider Emergency Medicine Emergency Medical Services
DX: J45.901 Unspecified asthma with (acute) exacerbation (principal); J20.9 Acute bronchitis, unspecified
CPT/HCPCS: 0241U; 36415; 71046; 80053; 85025; 94640; 96361; 96374; 99284; 99285; J2919; J2930

== ENCOUNTER 2024-05-21 11:23 | Emergency (ER) | payer MEDICAID, SELFPAY ==
--- NOTE | ~2024-05-21 | XR_ITS ---
EXAMINATION: XR CHEST CLINICAL INFORMATION: Shortness of breath. COMPARISON: Chest radiographs dated December 29, 2023. TECHNIQUE: 2 views of the chest were obtained. FINDINGS: The cardiac silhouette is normal in size. The lungs are clear. No pleural effusion. No pneumothorax. No acute osseous abnormality. XR/XR chest 2V IMPRESSION: No acute cardiopulmonary disease. Stable appearance of the heart and lungs. Electronically signed by: Marlon Eid DO 05/21/2024 02:11 PM EDT
[2024-05-21 11:36] VITALS: BP 129/67; PULSE 67; RESP 18; TEMP 36.9; O2SAT 96; BMI 22.1
--- NOTE | 2024-05-21 11:38 | ED_ITS ---
HPI - General Adult General Chief complaint: Asthma Stated complaint: Asthma Time Seen by Provider: 05/21/24 16:12 Source: patient and physician/ophthalmologist (Estonian) Mode of arrival: ambulatory Limitations: language barrier (Estonian speaking) History of Present Illness ED Provider: HEMA MCQUEEN PA-C HPI narrative: 53 year old Estonian-speaking male with pmhx significant for asthma presents to the ED today for evaluation of asthma exacerbation since last night. Reports increased wheezing beginning last night. Admits to using his inhaler 4 times yesterday with temporary relief. Woke up today with persistent symptoms. Admits to associated dry throat. Denies fever, chills, sore throat, cough, chest pain, palpitations, N/V, rash, odynophagia or dysphagia. Denies recent travel or long car rides. Vaccinations up-to-date. health companion (BRENDAN) utilized throughout visit to communicate with patient. Related Data Previous Rx's ?Medication ?Instructions ?Recorded albuterol sulfate 90 mcg/actuation 2 puff inhalation Q4-6H PRN 07/14/23 aerosol inhaler (Ventolin HFA) shortness of breath or wheezing #8.5 grams ipratropium 0.5 mg-albuterol 3 mg 3 ml inhalation RQ4H WHILE AWAKE 07/14/23 (2.5 mg base)/3 mL nebulization #90 mL soln nicotine 7 mg/24 hr daily 7 mg transdermal DAILY #7 ea 07/14/23 transdermal patch prednisone 10 mg tablet See Taper PO DIRECTED #20 tabs 07/14/23 albuterol sulfate 2.5 mg/3 mL 2.5 mg (3 mL) inhalation Q4-6H PRN 12/29/23 (0.083 %) solution for nebulization shortness of breath or wheezing #75 mL albuterol sulfate 90 mcg/actuation 2 puff inhalation Q4-6H PRN 12/29/23 aerosol inhaler shortness of breath or wheezing #8.5 grams amoxicillin 500 mg capsule 1,000 mg (2 x 500 mg) PO BID 5 12/29/23 days #20 caps prednisone 20 mg tablet 60 mg (3 x 20 mg) PO DAILY 5 days 12/29/23 #15 tabs albuterol sulfate 90 mcg/actuation 2 puff inhalation .q20 minutes PRN 05/21/24 aerosol inhaler shortness of breath or wheezing #8.5 grams benzocaine 15 mg-menthol 2.6 mg 1 andrew mucous membrane Q2-4H PRN 05/21/24 lozenges (Cepacol Sore Throat sore throat #16 ea (benzocaine-menthol)) penicillin V potassium 500 mg 500 mg PO BID 10 days #20 tabs 05/21/24 tablet prednisone 20 mg tablet 40 mg (2 x 20 mg) PO DAILY 4 days 05/21/24 #8 tabs Allergies Allergy/AdvReac Type Severity Reaction Status Date / Time No Known Allergies Allergy Verified 05/21/24 11:40 [No Known Allergies*] Review of Systems 2 Review of Systems: Constitutional: No fever, chills, fatigue, night sweats, weight changes ENT/Mouth: No ear pain, hearing loss, nasal congestion, sinus pain, rhinorrhea, sore throat Eyes: No eye pain, swelling, redness, vision changes, discharge Cardio: No chest pain, palpitations, CM, orthopnea, peripheral edema Pulm: No SOB, cough, sputum, dyspnea, hemoptysis, +wheezing, +SOB GI: No nausea, vomiting, hematemesis, abdominal pain, diarrhea, constipation, hematochezia, melena : No irregular bleeding, dysuria, frequency, urgency, hesitancy, hematuria, flank pain, urinary flow changes, urinary incontinence or retention MSK: No back pain, neck pain, joint pain, myalgias Skin: No lesions, rashes Neuro: No weakness, numbness, paresthesias, LOC, dizziness, headache Psych: No anxiety/panic, depression, SI/HI, AH/VH All other systems reviewed and are negative. ON LICENSE OF [facility] Past Medical History Attestation statement: The following information was validated with the patient. Source: old records reviewed and nursing notes reviewed Medical History Cocaine abuse Asthma Social History Social History Alcohol intake: current Alcohol intake frequency: does not drink Patient Tobacco Use Status: Current everyday Tobacco user Tobacco use type: Cigarette Second Hand Smoke Exposure: No Substance Use Type: Marijuana Advance Directives: No Advance Directives Information Provided: Yes Do you have a plan to hurt others: No Plan service: No Physical Exam ED Vital Signs: Vital Signs - 24 hr 05/21/24 11:36 05/21/24 17:36 05/21/24 19:20 Temperature 98.4 F 98.4 F Pulse Rate 67 67 67 Respiratory Rate 18 18 18 Blood Pressure 129/67 0/0 L Pulse Oximetry 96 Oxygen Delivery Method Room Air BMI result Body Mass Index 22.1 Vital signs stable. Not hypoxic. Not tachycardic. General: Well appearing, in no acute distress. Skin: Warm, dry, intact. No rashes or lesions. Head: Normocephalic, atraumatic. EENT: Hearing is intact b/l. Conjunctiva clear. PERRLA. Moist mucous membranes.? Posterior oropharynx erythematous, no edema or tonsillar exudates. Uvula midline. Controlling secretions and speaking in complete sentences Neck: Supple without LAD. FROM. Cardiac: Chest wall symmetric. RRR. Lungs: Normal respiratory effort without accessory muscle use. Expiratory wheezes bilaterally. Back: No midline spinous or paraspinal tenderness. No step off deformity. Ext: Upper and lower extremities atraumatic, without tenderness, deformity, swelling or erythema. Capillary refill <2 seconds in all extremities. Pulses 2+ equal and bilateral. Neuro: AOx3. Normal speech. CN 2-12 grossly intact. Strength 5/5 intact throughout. Sensation intact to light touch. NV intact distally. Ambulating with steady gait. Psych: Appropriate mood and affect. Responds appropriately to questions. Course Course Course Narrative: RME performed by Viji Barbour PA-C. Patient is a 53 year old assigned male at presenting to the emergency department with an asthma exacerbation. Patient states that he has a history of asthma and feels like it is worse right now. Patient states that he also has a dry throat. Detailed physical exam and review of systems are deferred to the primary care nurse. EKG, labs, imaging, swabs ordered. Patient placed back in the waiting room pending room availability and results. Reevaluation(s) Reevaluation #1: 1830 -- CBC without leukocytosis. No anemia. H&H stable. Chemistry without acute electrolyte abnormality requiring intervention. No MICHELLE. Random glucose 160. Total bili 1.3 of uncertain significance. Troponin undetectable. ACS unlikely. He was tested negative for COVID, flu, RSV. He tested positive for strep throat. Chest x-ray without focal consolidation or infiltrate. Normal cardiac silhouette. > patient received albuterol treatment from RT. he also received a dose of Solu- Medrol in the ED. his lungs are clear to auscultation bilaterally and he reports improvement in breathing. Will send prednisone and albuterol refill to pharmacy for treatment of asthma. Will also send penicillin and Cepacol throat lozenges to pharmacy for treatment of strep throat. Patient has remained stable throughout ED visit today. Discussed worrisome signs and symptoms and when to return to the ED. All questions answered at this time. Patient is agreeable with disposition and stable for discharge. Medications Administered Discontinued Medications Generic Name Dose Route Start Last Admin Trade Name Freq PRN Reason Stop Dose Admin Albuterol Sulfate 2.5 mg/ 0 mg 05/21/24 17:35 05/21/24 17:38 Albuterol/Ipratropium 3 ml INHALE 05/21/24 17:36 1 dose ONCE ONE Administration Methylprednisolone Sodium Succinate 60 mg 05/21/24 16:30 05/21/24 17:13 Methylprednisolone Sod Succ 125 Mg/2 Ml Vial IM 05/21/24 16:31 60 mg ONCE ONE Administration Medical Decision Making Medical Decision Making [facility] Narrative: 53 year old Estonian-speaking male with pmhx significant for asthma presents to the ED today for evaluation of asthma exacerbation since last night. Vital signs stable. Afebrile. Not hypoxic. He is nontoxic appearing in no acute distress. On initial examination, patient with expiratory wheezes bilaterally. No increased effort of breathing. No tripoding. No JVD or peripheral edema. RRR. Airway patent. Speaking in full complete sentences. Posterior oropharynx erythematous without edema or noted tonsillar exudates. Uvula midline. Controlling secretions and speaking complete sentences. Differential diagnosis includes viral syndrome, asthma exacerbation, strep throat, pneumonia, bronchitis. Unlikely [employer], retropharyngeal abscess, peritonsillar abscess, epiglottitis. Unlikely ACS, arrhythmia, PE. Blood work, viral serology, strep swab, CXR, EKG, trop ordered from triage. Plan to review and re-evaluate. Will treat with ED bronch protocol and IM Solu- Medrol with a re-evaluation. Differential Diagnosis Differential Diagnoses: The differential diagnosis associated with the presentation includes As above Admission/Observation Not indicated Lab Data [facility] Lab Attestation statement: I reviewed the patient's lab results. As above 05/21/24 12:44 05/21/24 12:44 Labs: Lab Results 05/21/24 Range/Units 12:44 WBC 8.3 (4.8-10.8) X10*3/uL RBC 4.52 L (4.60-5.80) X10*6/uL Hgb 14.9 (14.0-18.0) g/dl Hct 44.6 (42.0-52.0) % MCV 98.7 H (80.0-98.0) fL MCH 33.0 (27.0-33.0) pg MCHC 33.4 (31.0-36.0) g/dl RDW 12.4 (11.0-16.0) % Plt Count 331 (160-400) X10*3/uL MPV 8.9 L (9.4-12.4) fL Immature Gran % (Auto) 0.4 (0.0-0.4) % Neut % (Auto) 90.1 H (45-73) % Lymph % (Auto) 7.6 L (20-40) % [place] % (Auto) 1.3 L (2-11) % Eos % (Auto) 0.1 (0-4) % Baso % (Auto) 0.5 (0-2) % Lymph # (Auto) 0.6 L (1.2-4.9) X10*3/uL [place] # (Auto) 0.1 (0.1-1.2) X10*3/uL Eos # (Auto) 0.0 (0.0-0.4) X10*3/uL Baso # (Auto) 0.0 (0.0-0.2) X10*3/uL Abs Immat Gran (auto) 0.03 (0.00-0.03) X10*3/uL Absolute Neuts (auto) 7.4 (2.0-8.3) x10*3/uL Absolute Nucleated RBC 0.000 (0.0-0.012) X10*3/uL Nucleated RBC % (auto) 0.0 (0.0-0.2) /100WBC Smear Tech's Comments VERIFIED Sodium 140 (135-145) mmol/L Potassium 4.1 D (3.3-5.1) mmol/L Chloride 106 (96-108) mmol/L Carbon Dioxide 28 (22-29) mmol/L Anion Gap 10 L (12-20) BUN 9 (9-16) mg/dL Creatinine 0.82 (0.5-1.4) mg/dL Estim Creat Clear Calc 89.7 Estimated GFR > 60 Random Glucose 160 H (60-115) mg/dL Calcium 9.5 D (8.4-10.2) mg/dL Magnesium 2.2 (1.6-2.6) mg/dL Total Bilirubin 1.3 H (0.0-1.0) mg/dL AST 25 (5-37) U/L ALT 19 (0-40) U/L Alkaline Phosphatase 74 (39-117) U/L Troponin I High Sens < 2.7 (<3.5-35.0) ng/L Total Protein 7.4 (6.5-8.0) g/dL Albumin 4.3 (3.5-5.0) g/dL Influenza Type A (PCR) NEGATIVE (Negative) Influenza Type B (PCR) NEGATIVE (Negative) RSV RNA Qual (PCR) NEGATIVE (Negative) SARS-CoV-2 RNA (RT-PCR) NEGATIVE (Negative) S. pyogenes GrpA FAB Positive A (Negative) Independent Interpretation I performed an independent interpretation of an: EKG and Plain X-Ray Interpretation: EKG showing normal sinus rhythm with a rate of 66 beats per minute, QT 412, QTC 431, no acute ischemic changes or ST elevations. Chest x-ray without focal infiltrate or consolidation, agree with radiologist's interpretation. Radiology Impression Discussion of test interpretation with radiology: I have reviewed the radiologist's reading. Radiologist Impression: EXAMINATION: XR CHEST CLINICAL INFORMATION: Shortness of breath. COMPARISON: Chest radiographs dated December 29, 2023. TECHNIQUE: 2 views of the chest were obtained. FINDINGS: The cardiac silhouette is normal in size. The lungs are clear. No pleural effusion. No pneumothorax. No acute osseous abnormality. XR/XR chest 2V IMPRESSION: No acute cardiopulmonary disease. Stable appearance of the heart and lungs. Electronically signed by: Marlon Eid DO 05/21/2024 02:11 PM EDT External Record Review External record reviewed: Inpatient record Prescription Management I considered prescription management with: Antibiotic (Penicillin) and Other (Prednisone, albuterol, Cepacol throat lozenges) Chronic Conditions Patient?s care impacted by: Other (asthma) Social Determinants Patient?s care significantly limited by Social Determinants of Health including: Other Social Determinant of Health Critical Care Time Critical Care Time Critical Care Time: No Discharge Plan Discharge Clinical Impression: Asthma exacerbation, Strep pharyngitis Patient Disposition: Home, Self-Care Instructions: Asthma (ED), Strep Throat (DC), Wheezing (ED) Additional Instructions: Your blood work today is reassuring. Your EKG is normal. Your chest x-ray is normal. No evidence of pneumonia. You tested negative for COVID, flu, RSV. You tested positive for strep throat. Penicillin is an antibiotic that has been sent to your pharmacy. Take this twice daily for the next 10 days to treat strep throat. Do not stop taking these antibiotics early or miss any doses as this may cause infection to return or worsen. Cepacol throat lozenges have been sent to your pharmacy to help with throat pain. You may also purchase [id number] chloraseptic spray to numb your throat. Prednisone as a steroid that has been sent to your pharmacy to help with your breathing. Take this over the next 4 days starting tomorrow. You were given 1 dose of this in the emergency department today. A refill of your albuterol inhaler has been sent to your pharmacy. If you find yourself using this more often without relief, please return to the ED as you will require further evaluation. Take Tylenol and ibuprofen as needed for body aches or fevers. Make sure to change your toothbrush as this contains bacteria. Strep throat is contagious. If anyone else in your household is exhibiting symptoms, please advise them to come to the ED, urgent care, or to see their primary care provider. Follow up with your primary care provider this week. Return to the Emergency Department if you experience worsening or uncontrolled pain, tongue swelling, difficulty swallowing, change in your voice, difficulty breathing, fevers 100.4?F or greater, recurrent vomiting, development of a rash, or any other concerning symptoms. In the case of emergency, call 911.? Prescriptions: New prednisone 20 mg tablet 40 mg PO DAILY 4 Days Qty: 8 0RF albuterol sulfate 90 mcg/actuation HFA aerosol inhaler 2 puff inhalation .q20 minutes PRN (Reason: shortness of breath or wheezing) Qty: 8.5 0RF penicillin V potassium 500 mg tablet 500 mg PO BID 10 Days Qty: 20 0RF Cepacol Sore Throat (alisha-men) 15-2.6 mg lozenge 1 andrew mucous membrane Q2-4H PRN (Reason: sore throat) Qty: 16 0RF No Action amoxicillin 500 mg capsule 1,000 mg PO BID 5 Days Qty: 20 0RF albuterol sulfate 2.5 mg /3 mL (0.083 %) solution for nebulization 2.5 mg inhalation Q4-6H PRN (Reason: shortness of breath or wheezing) Qty: 75 0RF prednisone 20 mg tablet 60 mg PO DAILY 5 Days Qty: 15 0RF albuterol sulfate 90 mcg/actuation HFA aerosol inhaler 2 puff inhalation Q4-6H PRN (Reason: shortness of breath or wheezing) Qty: 8.5 0RF ipratropium-albuterol 0.5 mg-3 mg(2.5 mg base)/3 mL Solution For Nebulization 3 ml inhalation RQ4H WHILE AWAKE Qty: 90 0RF nicotine 7 mg/24 hr Patch 24 Hour 7 mg transdermal DAILY Qty: 7 0RF prednisone 10 mg tablet See Taper PO DIRECTED Qty: 20 0RF Taper: Prednisone 40 mg daily for 2 Days and 0 Hour 30 mg daily for 2 Days and 0 Hour 20 mg daily for 2 Days and 0 Hour 10 mg daily for 2 Days and 0 Hour Rx Instructions: see taper instructions albuterol sulfate [Ventolin HFA] 90 mcg/actuation HFA aerosol inhaler 2 puff inhalation Q4-6H PRN (Reason: shortness of breath or wheezing) Qty: 8.5 0RF Referrals: [facility] [Primary Care Provider] - Interventions: ED Discharge Assessment Last Done: 05/21/24 19:20 Discharge Date/Time: 05/21/24 19:21 Print Language: Estonian
--- NOTE | 2024-05-21 11:39 | ECG_ITS ---
Test Reason : cp Blood Pressure : / mmHG Vent. Rate : 066 BPM Atrial Rate : 066 BPM P-R Int : 130 ms QRS Dur : 080 ms QT Int : 412 ms P-R-T Axes : 081 068 065 degrees QTc Int : 431 ms Normal sinus rhythm Possible Left atrial enlargement Borderline ECG When compared with ECG of 12-JUL-2023 16:03, Heart rate has decreased Referred By: Viji Barbour Electronically Signed By:ALEXANDER SPAIN
[2024-05-21 12:53] LABS: Basophils Percent Auto 0.5 % (0-2); Eosinophils Percent Auto 0.1 % (0-4); Hematocrit 44.6 % (42.0-52.0); Hemoglobin 14.9 g/dl (14.0-18.0); Imm Gran Abs Auto 0.03 X10*3/uL (0.00-0.03); Imm Gran Pct Auto 0.4 % (0.0-0.4); Lymphocytes Absolute Auto 0.6 X10*3/uL (1.2-4.9); Lymphocytes Percent Auto 7.6 % (20-40); MANUAL DIFF FLAG SCAN; Mean Corpuscular HGB Conc 33.4 g/dl (31.0-36.0); Mean Corpuscular Volume 98.7 fL (80.0-98.0); Mean Platelet Volume 8.9 fL (9.4-12.4); Monocytes Absolute Auto 0.1 X10*3/uL (0.1-1.2); Monocytes Percent Auto 1.3 % (2-11); Neutrophils Absolute Auto 7.4 x10*3/uL (2.0-8.3); Neutrophils Percent Auto 90.1 % (45-73); Platelet Count 331 X10*3/uL (160-400); Red Blood Count 4.52 X10*6/uL (4.60-5.80); Red Cell Distribution Width 12.4 % (11.0-16.0); SCAN SMEAR FLAG 1; White Blood Count 8.3 X10*3/uL (4.8-10.8)
[2024-05-21 12:59] LABS: IDNOW Serial# 08D9AD1C; Strep A Nucleic Acid Positive (Negative)
[2024-05-21 13:04] LABS: Alanine Aminotransferase 19 U/L (0-40); Albumin Level 4.3 g/dL (3.5-5.0); Alkaline Phosphatase 74 U/L (39-117); Anion Gap 10 (12-20); Aspartate Amino Transferase 25 U/L (5-37); Bilirubin Total 1.3 mg/dL (0.0-1.0); Blood Urea Nitrogen 9 mg/dL (9-16); Calcium 9.5 mg/dL (8.4-10.2); Carbon Dioxide 28 mmol/L (22-29); Chloride 106 mmol/L (96-108); Creatinine Clr Calc Pharmacy 89.7; Estimated Glomerular Filt Rate > 60; Glucose Random 160 mg/dL (60-115); Magnesium 2.2 mg/dL (1.6-2.6); Potassium 4.1 mmol/L (3.3-5.1); Sodium 140 mmol/L (135-145); Total Protein 7.4 g/dL (6.5-8.0)
[2024-05-21 13:11] LABS: SLIDE REVIEW VERIFIED; Troponin-I High Sensitivity < 2.7 ng/L (<3.5-35.0)
[2024-05-21 13:34] LABS: Influenza A PCR NEGATIVE (Negative); Influenza B PCR NEGATIVE (Negative); Resp Syncy Virus RNA Qual PCR NEGATIVE (Negative); SARS COV2 PCR INHOUSE NEGATIVE (Negative)
[2024-05-21] MEDS: methylPREDNISolone Sod Succ 125 MG/2 ML VIAL 60 MG IM (17:13)
[2024-05-21 17:36] VITALS: PULSE 67; RESP 18; O2SAT 95
[2024-05-21] MEDS: Albuterol Sulfate 2.5 MG, Albuterol/Iprat 2.5/0.5MG 3 ML 3 ML INHALE (17:38)
[2024-05-21 19:20] VITALS: BP 0/0; PULSE 67; RESP 18; TEMP 36.9
== END 2024-05-21 19:21 | disposition home or self-care (01) ==
PROVIDERS: Physician Assistant Medical; Emergency Provider Internal Medicine
DX: J45.901 Unspecified asthma with (acute) exacerbation (principal); J02.0 Streptococcal pharyngitis; Z03.818 Encounter for observation for suspected exposure to other biological agents ruled out
CPT/HCPCS: 0241U; 71046; 80053; 83735; 84484; 85025; 87651; 93005; 94640; 96372; 99284; J2919

== ENCOUNTER 2024-07-19 12:01 | Emergency (ER) | payer MEDICAID, SELFPAY ==
--- NOTE | ~2024-07-19 | XR_ITS ---
EXAMINATION: XR CHEST CLINICAL INFORMATION: Cough/pain COMPARISON: 12/29/2023 TECHNIQUE: Frontal view of the chest was obtained. FINDINGS: No significant abnormality is noted involving the heart, lungs, mediastinum, bony thorax or soft tissues. XR/XR chest 1V IMPRESSION: Unremarkable examination. Electronically signed by: Raven Rose MD 07/19/2024 06:22 PM [facility]
--- NOTE | 2024-07-19 12:04 | ECG_ITS ---
Test Reason : chest pain Blood Pressure : / mmHG Vent. Rate : 058 BPM Atrial Rate : 058 BPM P-R Int : 136 ms QRS Dur : 076 ms QT Int : 400 ms P-R-T Axes : 081 073 072 degrees QTc Int : 392 ms Sinus bradycardia with sinus arrhythmia Early repolarization Otherwise normal ECG When compared with ECG of 21-MAY-2024 12:32, No significant change was found Referred By: Generic ED Physician Electronically Signed By:MARY WARE MD
[2024-07-19 12:17] LABS: MANUAL DIFF FLAG NO
[2024-07-19 12:20] LABS: Basophils Percent Auto 0.6 % (0-2); Eosinophils Absolute Auto 0.2 X10*3/uL (0.0-0.4); Eosinophils Percent Auto 2.2 % (0-4); Hematocrit 40.7 % (42.0-52.0); Hemoglobin 13.4 g/dl (14.0-18.0); Imm Gran Abs Auto 0.03 X10*3/uL (0.00-0.03); Imm Gran Pct Auto 0.4 % (0.0-0.4); Lymphocytes Absolute Auto 1.9 X10*3/uL (1.2-4.9); Lymphocytes Percent Auto 27.8 % (20-40); Mean Corpuscular HGB Conc 32.9 g/dl (31.0-36.0); Mean Corpuscular Hemoglobin 32.8 pg (27.0-33.0); Mean Corpuscular Volume 99.5 fL (80.0-98.0); Monocytes Absolute Auto 0.5 X10*3/uL (0.1-1.2); Monocytes Percent Auto 7.9 % (2-11); Neutrophils Absolute Auto 4.1 x10*3/uL (2.0-8.3); Neutrophils Percent Auto 61.1 % (45-73); Platelet Count 314 X10*3/uL (160-400); Red Blood Count 4.09 X10*6/uL (4.60-5.80); Red Cell Distribution Width 12.8 % (11.0-16.0); White Blood Count 6.7 X10*3/uL (4.8-10.8)
[2024-07-19 12:34] LABS: Anion Gap 15 (12-20); Blood Urea Nitrogen 14 mg/dL (9-16); Calcium 9.3 mg/dL (8.4-10.2); Carbon Dioxide 23 mmol/L (22-29); Chloride 109 mmol/L (96-108); Estimated Glomerular Filt Rate > 60; Glucose Random 93 mg/dL (60-115); Potassium 4.5 mmol/L (3.3-5.1); Sodium 142 mmol/L (135-145)
[2024-07-19 12:40] LABS: Troponin-I High Sensitivity < 2.7 ng/L (<3.5-35.0)
[2024-07-19 12:54] VITALS: BP 108/55; PULSE 62; RESP 16; TEMP 37.7; O2SAT 100; BMI 24.0
[2024-07-19 16:42] VITALS: BP 113/57; PULSE 68; RESP 18; TEMP 37; O2SAT 99
[2024-07-19 18:45] LABS: Influenza A PCR NEGATIVE (Negative); Influenza B PCR NEGATIVE (Negative); Resp Syncy Virus RNA Qual PCR NEGATIVE (Negative); SARS COV2 PCR INHOUSE NEGATIVE (Negative)
--- NOTE | 2024-07-19 19:21 | ED_ITS ---
HPI - Chest Pain General Chief Complaint: Chest Pain Stated Complaint: cp Time Seen by Provider: 07/19/24 17:08 Source: patient Limitations: language barrier History of Present Illness ED Provider: Jovani Hines PA-C HPI narrative: 53-year-old male with a history of cocaine abuse, asthma presents with chest pain since this morning. Patient states he woke with left anterior chest discomfort, it is no longer present. Patient unable to describe the pain. Patient states he feels as if he maybe coming down with a virus, he was wheezing earlier at home. Denies fever or known sick contacts. Denies shortness of breath. Denies new activity, heavy lifting or repetitive activity that could have strained his chest wall. Related Data Previous Rx's ?Medication ?Instructions ?Recorded albuterol sulfate 90 mcg/actuation 2 puff inhalation Q4-6H PRN 07/14/23 aerosol inhaler (Ventolin HFA) shortness of breath or wheezing #8.5 grams ipratropium 0.5 mg-albuterol 3 mg 3 ml inhalation RQ4H WHILE AWAKE 07/14/23 (2.5 mg base)/3 mL nebulization #90 mL soln nicotine 7 mg/24 hr daily 7 mg transdermal DAILY #7 ea 07/14/23 transdermal patch prednisone 10 mg tablet See Taper PO DIRECTED #20 tabs 07/14/23 albuterol sulfate 2.5 mg/3 mL 2.5 mg (3 mL) inhalation Q4-6H PRN 12/29/23 (0.083 %) solution for nebulization shortness of breath or wheezing #75 mL albuterol sulfate 90 mcg/actuation 2 puff inhalation Q4-6H PRN 12/29/23 aerosol inhaler shortness of breath or wheezing #8.5 grams amoxicillin 500 mg capsule 1,000 mg (2 x 500 mg) PO BID 5 12/29/23 days #20 caps prednisone 20 mg tablet 60 mg (3 x 20 mg) PO DAILY 5 days 12/29/23 #15 tabs albuterol sulfate 90 mcg/actuation 2 puff inhalation .q20 minutes PRN 05/21/24 aerosol inhaler shortness of breath or wheezing #8.5 grams benzocaine 15 mg-menthol 2.6 mg 1 andrew mucous membrane Q2-4H PRN 05/21/24 lozenges (Cepacol Sore Throat sore throat #16 ea (benzocaine-menthol)) penicillin V potassium 500 mg 500 mg PO BID 10 days #20 tabs 05/21/24 tablet prednisone 20 mg tablet 40 mg (2 x 20 mg) PO DAILY 4 days 05/21/24 #8 tabs Allergies Allergy/AdvReac Type Severity Reaction Status Date / Time No Known Allergies Allergy Verified 07/19/24 12:55 [No Known Allergies*] Review of Systems 2 Review of Systems: Yes all other systems are reviewed and are negative Constitutional: Constitutional: Denies fatigue and Denies fever(s) Cardiovascular: Cardiovascular: Reports chest pain and Denies dyspnea Respiratory: Respiratory: Denies cough, Denies dyspnea and Reports wheezing Gastrointestinal: Gastrointestinal: Denies abdominal pain, Denies nausea and Denies vomiting Endocrine: Endocrine: Denies fatigue Allergic/Immunologic: Allergic/Immunologic: Reports wheezing PMFSH Past Medical History Attestation statement: The following information was validated with the patient. Medical History Cocaine abuse Asthma Social History Social History Alcohol intake: current Alcohol intake frequency: does not drink Patient Tobacco Use Status: Current everyday Tobacco user Tobacco use type: Cigarette Second Hand Smoke Exposure: No Substance Use Type: Marijuana Advance Directives: No Advance Directives Information Provided: Yes Do you have a plan to hurt others: No Plan service: No Physical Exam 2 Vital Signs: Vital Signs: Last Vital Signs Temp 98.6 F 07/19/24 16:42 Pulse 68 07/19/24 16:42 Resp 18 07/19/24 16:42 BP 113/57 L 07/19/24 16:42 Pulse Ox 99 07/19/24 16:42 O2 Del Method Room Air 07/19/24 16:42 BMI result Body Mass Index 24.0 Const: Other: Alert, well-appearing, sitting up in bed eating a meal Orientation/consciousness: patient oriented x3 Resp: Other: Nonlabored respirations, lungs are clear to auscultation no wheezing Cardio: Other: Normal peripheral perfusion Skin: Other: Warm dry no rash Neuro: General: patient oriented x3, no focal motor deficits and CN's II-XI intact bilaterally Psych: Other: Calm cooperative Medical Decision Making Medical Decision Making [facility] Narrative: 53-year-old male with a history of cocaine abuse, asthma presents with chest pain since this morning. Patient states he woke with left anterior chest discomfort, it is no longer present. Patient unable to describe the pain. Patient states he feels as if he maybe coming down with a virus, he was wheezing earlier at home. Denies fever or known sick contacts. Denies shortness of breath. Denies new activity, heavy lifting or repetitive activity that could have strained his chest wall. Problem: Cocaine abuse and asthma History: Per patient I have considered the following differential diagnoses: Coronary vasospasm, ACS, asthma exacerbation, viral syndrome, costochondritis, pneumonia Plan: Given the patient uses cocaine, perhaps the discomfort was induced by his use. Although he states he woke with it. ACS was considered, despite no risk factors for coronary artery disease. Screening labs including a cardiac enzyme, EKG and chest x-ray obtained. Patient feels as if he is coming down with a virus, and that he has been wheezing. His exam was unremarkable, adding a viral panel, this is not an asthma exacerbation. And given brief onset of symptoms, definitely not a concurrent pneumonia. I have independently reviewed the following tests: Labs: No leukocytosis, not anemic, no electrolyte abnormality, troponin negative, viral panel negative EKG: Sinus Curtis with sinus arrhythmia, rate of 58, no ischemic changes no ectopy Chest x-ray: XR/XR chest 1V IMPRESSION: Unremarkable examination. Electronically signed by: Raven Rose MD 07/19/2024 06:22 PM [facility] Lab Data 07/19/24 12:13 07/19/24 12:13 Labs: Lab Results 07/19/24 07/19/24 Range/Units 12:13 17:39 WBC 6.7 (4.8-10.8) X10*3/uL RBC 4.09 L (4.60-5.80) X10*6/uL Hgb 13.4 L (14.0-18.0) g/dl Hct 40.7 L (42.0-52.0) % MCV 99.5 H (80.0-98.0) fL MCH 32.8 (27.0-33.0) pg MCHC 32.9 (31.0-36.0) g/dl RDW 12.8 (11.0-16.0) % Plt Count 314 (160-400) X10*3/uL MPV 9.0 L (9.4-12.4) fL Immature Gran % (Auto) 0.4 (0.0-0.4) % Neut % (Auto) 61.1 (45-73) % Lymph % (Auto) 27.8 (20-40) % Granite % (Auto) 7.9 (2-11) % Eos % (Auto) 2.2 (0-4) % Baso % (Auto) 0.6 (0-2) % Lymph # (Auto) 1.9 (1.2-4.9) X10*3/uL Granite # (Auto) 0.5 (0.1-1.2) X10*3/uL Eos # (Auto) 0.2 (0.0-0.4) X10*3/uL Baso # (Auto) 0.0 (0.0-0.2) X10*3/uL Abs Immat Gran (auto) 0.03 (0.00-0.03) X10*3/uL Absolute Neuts (auto) 4.1 (2.0-8.3) x10*3/uL Absolute Nucleated RBC 0.000 (0.0-0.012) X10*3/uL Nucleated RBC % (auto) 0.0 (0.0-0.2) /100WBC Sodium 142 (135-145) mmol/L Potassium 4.5 (3.3-5.1) mmol/L Chloride 109 H (96-108) mmol/L Carbon Dioxide 23 (22-29) mmol/L Anion Gap 15 (12-20) BUN 14 (9-16) mg/dL Creatinine 0.76 (0.5-1.4) mg/dL Estim Creat Clear Calc TNP Estimated GFR > 60 Random Glucose 93 (60-115) mg/dL Calcium 9.3 (8.4-10.2) mg/dL Troponin I High Sens < 2.7 (<3.5-35.0) ng/L Influenza Type A (PCR) NEGATIVE (Negative) Influenza Type B (PCR) NEGATIVE (Negative) RSV RNA Qual (PCR) NEGATIVE (Negative) SARS-CoV-2 RNA (RT-PCR) NEGATIVE (Negative) Discharge Plan Discharge Clinical Impression: Chest pain Patient Disposition: Home, Self-Care Instructions: Noncardiac Chest Pain (ED) Additional Instructions: You were assess for chest pain of unclear source, it was not related to your heart today. Screening labs including a cardiac enzymes were obtained and were negative. There were no concerning changes on your EKG in the chest x-ray was clear. The viral panel was negative as well. Continue to follow up with your primary care provider as needed. Prescriptions: No Action amoxicillin 500 mg capsule 1,000 mg PO BID 5 Days Qty: 20 0RF albuterol sulfate 2.5 mg /3 mL (0.083 %) solution for nebulization 2.5 mg inhalation Q4-6H PRN (Reason: shortness of breath or wheezing) Qty: 75 0RF prednisone 20 mg tablet 60 mg PO DAILY 5 Days Qty: 15 0RF albuterol sulfate 90 mcg/actuation HFA aerosol inhaler 2 puff inhalation Q4-6H PRN (Reason: shortness of breath or wheezing) Qty: 8.5 0RF ipratropium-albuterol 0.5 mg-3 mg(2.5 mg base)/3 mL Solution For Nebulization 3 ml inhalation RQ4H WHILE AWAKE Qty: 90 0RF nicotine 7 mg/24 hr Patch 24 Hour 7 mg transdermal DAILY Qty: 7 0RF prednisone 10 mg tablet See Taper PO DIRECTED Qty: 20 0RF Taper: Prednisone 40 mg daily for 2 Days and 0 Hour 30 mg daily for 2 Days and 0 Hour 20 mg daily for 2 Days and 0 Hour 10 mg daily for 2 Days and 0 Hour Rx Instructions: see taper instructions albuterol sulfate [Ventolin HFA] 90 mcg/actuation HFA aerosol inhaler 2 puff inhalation Q4-6H PRN (Reason: shortness of breath or wheezing) Qty: 8.5 0RF prednisone 20 mg tablet 40 mg PO DAILY 4 Days Qty: 8 0RF albuterol sulfate 90 mcg/actuation HFA aerosol inhaler 2 puff inhalation .q20 minutes PRN (Reason: shortness of breath or wheezing) Qty: 8.5 0RF penicillin V potassium 500 mg tablet 500 mg PO BID 10 Days Qty: 20 0RF Cepacol Sore Throat (alisha-men) 15-2.6 mg lozenge 1 andrew mucous membrane Q2-4H PRN (Reason: sore throat) Qty: 16 0RF Print Language: Swazi
[2024-07-19 19:27] VITALS: BP 111/66; PULSE 76; RESP 16; TEMP 36.7; O2SAT 100
[2024-07-19 20:37] VITALS: BP 112/69; PULSE 79; RESP 16; TEMP 36.8; O2SAT 98
== END 2024-07-19 20:38 | disposition home or self-care (01) ==
PROVIDERS: Physician Assistant Medical; Emergency Provider Emergency Medicine
DX: R07.9 Chest pain, unspecified (principal); R05.9 Cough, unspecified; J45.909 Unspecified asthma, uncomplicated; Z79.899 Other long term (current) drug therapy
CPT/HCPCS: 0241U; 36415; 71045; 80048; 84484; 85025; 93005; 99283; 99285

== ENCOUNTER → 2024-07-19 12:04 | Outpatient (BNV) | payer MEDICAID, SELFPAY | PROVIDERS: Emergency Provider Emergency Medicine; Visit Provider Internal Medicine Cardiovascular Disease | DX: I49.9 Cardiac arrhythmia, unspecified (principal) | CPT/HCPCS: 93010 ==

== ENCOUNTER 2024-09-25 12:18 | Emergency (ER) | payer MEDICAID, SELFPAY ==
--- NOTE | ~2024-09-25 | XR_ITS ---
CLINICAL HISTORY: left low back pain 3 views lumbar spine Comparison: None Findings: Normal alignment. No acute fractures or dislocation. Mild degenerative disc disease at L4-L5 and L5-S1. Mild facet osteoarthritis at L5-S1. IMPRESSION: No acute findings. This document has been electronically signed by: Elida Clay MD on 09/25/2024 13:44:46
--- NOTE | ~2024-09-25 | XR_ITS ---
CLINICAL HISTORY: left hip pain, atraumatic 3 view, pelvis and left hip Comparison: None Findings: No acute fracture or dislocation. Mild arthritic changes of the bilateral hips with small osteophytes. The soft tissues are unremarkable. IMPRESSION: No acute findings. This document has been electronically signed by: Elida Clay MD on 09/25/2024 13:46:03
[2024-09-25 12:38] VITALS: BP 112/61; PULSE 84; RESP 18; TEMP 36.6; O2SAT 98; BMI 24.5
--- NOTE | 2024-09-25 12:41 | ED.GENADULT ---
HPI - General Adult General Chief complaint: Back Pain/Injury Stated complaint: L foot pain 1 wk Time Seen by Provider: 09/25/24 13:34 Source: patient and RN notes reviewed Mode of arrival: ambulatory Limitations: no limitations History of Present Illness ED Provider: Stacey Daniel PA-C HPI narrative: This is a 54-year-old male, with a history of asthma, who presents to the emergency department with complaints of low back pain, and left hip/leg pain times 1.5 weeks. Patient reports that the pain starts in his left low back, and radiates down his left leg. Patient reports that he performs heavy lifting at work however does not remember specific incidents where he lifted a heavy object and developed his symptoms.No other trauma, falls.No hx of IVDA. No urinary or bowel retention or incontinence. No saddle anethesia. Denies taking any medications at home to treat his current symptoms. No other complaints or concerns at this time. MD complaint: Left hip pain, low back pain Onset (ago): week(s) Location: back and lower extremity Radiation: distal Severity: moderate Relieving factors: rest Exacerbating factors: movement Treatments prior to arrival: none Related Data Previous Rx's ?Medication ?Instructions ?Recorded albuterol sulfate 90 mcg/actuation 2 puff inhalation Q4-6H PRN 07/14/23 aerosol inhaler (Ventolin HFA) shortness of breath or wheezing #8.5 grams ipratropium 0.5 mg-albuterol 3 mg 3 ml inhalation RQ4H WHILE AWAKE 07/14/23 (2.5 mg base)/3 mL nebulization #90 mL soln nicotine 7 mg/24 hr daily 7 mg transdermal DAILY #7 ea 07/14/23 transdermal patch prednisone 10 mg tablet See Taper PO DIRECTED #20 tabs 07/14/23 albuterol sulfate 2.5 mg/3 mL 2.5 mg (3 mL) inhalation Q4-6H PRN 12/29/23 (0.083 %) solution for nebulization shortness of breath or wheezing #75 mL albuterol sulfate 90 mcg/actuation 2 puff inhalation Q4-6H PRN 12/29/23 aerosol inhaler shortness of breath or wheezing #8.5 grams amoxicillin 500 mg capsule 1,000 mg (2 x 500 mg) PO BID 5 12/29/23 days #20 caps prednisone 20 mg tablet 60 mg (3 x 20 mg) PO DAILY 5 days 12/29/23 #15 tabs albuterol sulfate 90 mcg/actuation 2 puff inhalation .q20 minutes PRN 05/21/24 aerosol inhaler shortness of breath or wheezing #8.5 grams benzocaine 15 mg-menthol 2.6 mg 1 andrew mucous membrane Q2-4H PRN 05/21/24 lozenges (Cepacol Sore Throat sore throat #16 ea (benzocaine-menthol)) penicillin V potassium 500 mg 500 mg PO BID 10 days #20 tabs 05/21/24 tablet prednisone 20 mg tablet 40 mg (2 x 20 mg) PO DAILY 4 days 05/21/24 #8 tabs acetaminophen 500 mg tablet 500 - 1,000 mg (1 - 2 x 500 mg) PO 09/25/24 (Tylenol Extra Strength) Q6H PRN pain #30 tabs cyclobenzaprine 10 mg tablet 10 mg PO TID PRN muscle spasm #14 09/25/24 tabs lidocaine 4 % topical patch 1 patch topical DAILY PRN pain #30 09/25/24 (AsperFlex (lidocaine)) ea prednisone 20 mg tablet 40 mg (2 x 20 mg) PO DAILY 5 days 09/25/24 #10 tabs Allergies Allergy/AdvReac Type Severity Reaction Status Date / Time No Known Allergies Allergy Verified 09/25/24 12:40 [No Known Allergies*] Review of Systems Review of Systems: Yes all other systems are reviewed and are negative Constitutional: Constitutional: Reports as per [facility] Past Medical History Medical History Cocaine abuse Asthma Social History Social History Alcohol intake: current Alcohol intake frequency: does not drink Patient Tobacco Use Status: Current everyday Tobacco user Tobacco use type: Cigarette Second Hand Smoke Exposure: No Substance Use Type: Marijuana Advance Directives: No Advance Directives Information Provided: Yes Do you have a plan to hurt others: No Plan service: No Physical Exam ED Vital Signs: Vital Signs - 24 hr 09/25/24 12:38 09/25/24 14:31 09/25/24 16:10 Temperature 98 F 98.7 F 98.7 F Pulse Rate 84 72 72 Respiratory Rate 18 17 17 Blood Pressure 112/61 108/59 L 108/59 L Pulse Oximetry 98 98 98 Oxygen Delivery Method Room Air Room Air Room Air BMI result Body Mass Index 24.5 Const General: cooperative, comfortable and no acute distress Orientation/consciousness: patient oriented x3 Limitations: no limitations HENMT Head: Yes normal to inspection, Yes normocephalic and Yes atraumatic Ears: hearing grossly normal bilaterally General nose exam: Normal external nose present Face and sinus: Yes normal facial exam Mouth: Normal oral and palatal mucosa present, oropharynx normal and moist mucous membranes Throat: Yes posterior oropharynx normal Eyes General: appearance normal, both eyes and all related structures Eyelids: Yes eyelids normal Conjunctivae: conjunctivae normal Sclerae: sclerae normal Pupils: Equal, round and reactive pupils present EOM: EOMs intact bilaterally Neck Neck: Yes normal visual inspection, Yes full ROM and Yes no lymphadenopathy Lymphatic: no lymphadenopathy noted Chest Chest palpation & inspection: normal inspection of the chest Resp Effort & Inspection: normal respiratory effort and able to speak in complete sentences Auscultation: clear to auscultation bilaterally, no crackles, no rales, no rhonchi and no wheezes Cardio Rate: regular rate Rhythm: regular rhythm Heart sounds: S1 normal heart sound present and S2 normal heart sound present GI Inspection: Yes normal to inspection General: Yes no CVA tenderness Back/Spine/Pelvis Other: TTP overlying left lumbar back, extending over to the left laateral hip. No obvious bony deformity or swelling. 5/5 strength in lower extremities. sensation in tact. No calf tenderness. Neg STL. Pt ambulatory with steady gait Back: no CVA tenderness Cervical Spine: normal cervical lordosis Thoracic/Lumbar Spine: thoracic and lumbar spine normal to inspection Skin General skin exam: no rashes or lesions noted Trauma: no lacerations or abrasions Wounds: no wounds Neuro General: patient oriented x3 and moves all extremities Cranial nerves: Yes Equal, round and reactive pupils present Extrem General: Yes normal to inspection Right upper extremity: normal to inspection Left upper extremity: normal to inspection Right lower extremity: normal to inspection Left lower extremity: normal to inspection Course Course Course Narrative: This is a Rapid Medical Examination (RME) performed by Gonzalo Jackson PA-C in triage. Full HPI, ROS, assessment and treatment plan per primary provider in the Main ED. 54 yo male hx of cocaine abuse (no IVDU) here for eval of left lower back/ left hip pain radiating down lateral left leg x1 week. no trauma. no red flag symptoms. Plan: xrs Medications Administered Discontinued Medications Generic Name Dose Route Start Last Admin Trade Name Adryanq PRN Reason Stop Dose Admin Ketorolac Tromethamine 30 mg 09/25/24 15:57 09/25/24 16:05 Ketorolac Tromethamine 30 Mg/Ml Vial IM 09/25/24 15:58 30 mg ONCE ONE Administration Medical Decision Making Medical Decision Making [facility] Narrative: This is a 54 y/o M who presents to the ER with complaints of left low back and left leg paain x 1 week. No trauma or injury. On arrival, pt ambulatory with steady gait, normal vitals. This patient presents with back pain most consistent with lumbar radiculopathy. Differential diagnoses includes lumbago versus musculoskeletal spasm / strain versus sciatica. No back pain red flags on history or physical. Presentation not consistent with malignancy (lack of history of malignancy, lack of B symptoms), fracture (no trauma, no bony tenderness to palpation), cauda equina syndrome (no bowel or urinary incontinence/retention, no saddle anesthesia, no distal weakness),pyelonephritis (afebrile, no CVAT, no urinary symptoms). xrays were performed which revealed DDD and left hip arthritis. Discussed with pt, advised to f/u with PCP. Given dose of toradol and d.c on muscle relaxants and prednisone. Pt stable for d.c Differential Diagnosis Differential Diagnoses: The differential diagnosis associated with the presentation includes see above Radiology Impression Discussion of test interpretation with radiology: I have reviewed the radiologist's reading. Radiologist Impression: CLINICAL HISTORY: left hip pain, atraumatic 3 view, pelvis and left hip Comparison: None Findings: No acute fracture or dislocation. Mild arthritic changes of the bilateral hips with small osteophytes. The soft tissues are unremarkable. IMPRESSION: No acute findings. This document has been electronically signed by: Elida Clay MD on 09/25/2024 13:46:03 Dictated By: Elida Clay MD Comparison: None Findings: Normal alignment. No acute fractures or dislocation. Mild degenerative disc disease at L4-L5 and L5-S1. Mild facet osteoarthritis at L5-S1. IMPRESSION: No acute findings. This document has been electronically signed by: Elida Clay MD on 09/25/2024 13:44:46 Dictated By: Elida Clay MD External Record Review External record reviewed: Inpatient record, Office record, Outpatient record, Prior outpatient labs, Prior outpatient radiology, Primary care record and Outside ED record Discharge Plan Discharge Clinical Impression: Left lumbar radiculopathy Patient Disposition: Home, Self-Care Instructions: Lumbar Radiculopathy (ED) Additional Instructions: You were seen in the emergency department due to left leg pain. Your x-rays show degenerative changes in your back, as well as arthritis in your left hip. This could be the source of your symptoms. Please rest, gentle stretching, heat or ice, and massage. Take prescribed prednisone as directed. Take muscle relaxants as prescribed, please be advised that this can cause drowsiness, do not drink alcohol or drive while taking this medication. Take Tylenol as needed for pain. Lidocaine patches can also help with your symptoms. Follow-up with your primary care physician on Friday. If any new or worsening symptoms occur including but not limited to severe chest pain or shortness for breath, or worsening pain, numbness tingling into your groin, loss of bladder or bowel control, please seek emergent care. Prescriptions: New cyclobenzaprine 10 mg tablet 10 mg PO TID PRN (Reason: muscle spasm) Qty: 14 0RF prednisone 20 mg tablet 40 mg PO DAILY 5 Days Qty: 10 0RF lidocaine [AsperFlex (lidocaine)] 4 % adhesive patch,medicated 1 patch topical DAILY PRN (Reason: pain) Qty: 30 0RF acetaminophen [Tylenol Extra Strength] 500 mg tablet 500 - 1,000 mg PO Q6H PRN (Reason: pain) Qty: 30 0RF No Action amoxicillin 500 mg capsule 1,000 mg PO BID 5 Days Qty: 20 0RF albuterol sulfate 2.5 mg /3 mL (0.083 %) solution for nebulization 2.5 mg inhalation Q4-6H PRN (Reason: shortness of breath or wheezing) Qty: 75 0RF prednisone 20 mg tablet 60 mg PO DAILY 5 Days Qty: 15 0RF albuterol sulfate 90 mcg/actuation HFA aerosol inhaler 2 puff inhalation Q4-6H PRN (Reason: shortness of breath or wheezing) Qty: 8.5 0RF ipratropium-albuterol 0.5 mg-3 mg(2.5 mg base)/3 mL Solution For Nebulization 3 ml inhalation RQ4H WHILE AWAKE Qty: 90 0RF nicotine 7 mg/24 hr Patch 24 Hour 7 mg transdermal DAILY Qty: 7 0RF prednisone 10 mg tablet See Taper PO DIRECTED Qty: 20 0RF Taper: Prednisone 40 mg daily for 2 Days and 0 Hour 30 mg daily for 2 Days and 0 Hour 20 mg daily for 2 Days and 0 Hour 10 mg daily for 2 Days and 0 Hour Rx Instructions: see taper instructions albuterol sulfate [Ventolin HFA] 90 mcg/actuation HFA aerosol inhaler 2 puff inhalation Q4-6H PRN (Reason: shortness of breath or wheezing) Qty: 8.5 0RF prednisone 20 mg tablet 40 mg PO DAILY 4 Days Qty: 8 0RF albuterol sulfate 90 mcg/actuation HFA aerosol inhaler 2 puff inhalation .q20 minutes PRN (Reason: shortness of breath or wheezing) Qty: 8.5 0RF penicillin V potassium 500 mg tablet 500 mg PO BID 10 Days Qty: 20 0RF Cepacol Sore Throat (alisha-men) 15-2.6 mg lozenge 1 andrew mucous membrane Q2-4H PRN (Reason: sore throat) Qty: 16 0RF Interventions: ED Discharge Assessment Last Done: 09/25/24 16:10 Discharge Date/Time: 09/25/24 16:11 Print Language: Yi
[2024-09-25 14:31] VITALS: BP 108/59; PULSE 72; RESP 17; TEMP 37.1; O2SAT 98
[2024-09-25] MEDS: Ketorolac Tromethamine 30 MG/ML VIAL IM (16:05)
[2024-09-25 16:10] VITALS: BP 108/59; PULSE 72; RESP 17; TEMP 37.1; O2SAT 98
== END 2024-09-25 16:11 | disposition home or self-care (01) ==
PROVIDERS: Emergency Provider Emergency Medicine
DX: M54.16 Radiculopathy, lumbar region (principal); M54.42 Lumbago with sciatica, left side
CPT/HCPCS: 72100; 73502; 96372; 99284; J1885

== ENCOUNTER → 2024-09-25 12:40 | Outpatient (BNV) | payer MEDICAID, SELFPAY | PROVIDERS: Visit Provider Radiology Diagnostic Radiology | DX: M16.0 Bilateral primary osteoarthritis of hip (principal); M51.370 Other intervertebral disc degeneration, lumbosacral region with discogenic back pain only; M46.97 Unspecified inflammatory spondylopathy, lumbosacral region | CPT/HCPCS: 72100; 73502 ==

== ENCOUNTER 2024-10-02 11:13 | Emergency (ER) | payer MEDICAID, SELFPAY ==
--- NOTE | ~2024-10-02 | XR_ITS ---
CLINICAL HISTORY: puncture wound medial wrist 4 view left hand and wrist Comparison: None Findings: Bones intact. No dislocations. No significant loss of joint space or osteophytes. No erosions. No radiopaque foreign body. IMPRESSION: 1. No acute findings This document has been electronically signed by: Aris Neri MD on 10/02/2024 12:31:00
[2024-10-02 11:40] VITALS: BP 112/42; PULSE 94; RESP 19; TEMP 36.6; O2SAT 98; BMI 23.3
--- NOTE | 2024-10-02 11:43 | ED.UPPEXIN ---
HPI - Extremity Injury (Upper) General Chief Complaint: Extremity Injury, Upper Stated Complaint: l hand swelling Time Seen by Provider: 10/02/24 12:44 Source: patient and [employer] worker Mode of arrival: ambulatory Limitations: no limitations History of Present Illness ED Provider: REYNALDO BIGGS narrative: 54 yo male R hand dominant here with c/o puncture to L dorsum of hand with nail at work. Has receieved Tdap in past but that was 10 years ago. This happened while working. No fevers, n/v/d. He notes no pain and redness to hand but can move hand. No other injuries. MD complaint: injury to: left and hand Onset (ago): day(s) (1) Other injuries: none Handedness: right Severity: mild Relieving factors: none Exacerbating factors: other (palpation) Context: other (nail puncture) Associated symptoms: denies other symptoms Related Data Previous Rx's ?Medication ?Instructions ?Recorded albuterol sulfate 90 mcg/actuation 2 puff inhalation Q4-6H PRN 07/14/23 aerosol inhaler (Ventolin HFA) shortness of breath or wheezing #8.5 grams ipratropium 0.5 mg-albuterol 3 mg 3 ml inhalation RQ4H WHILE AWAKE 07/14/23 (2.5 mg base)/3 mL nebulization #90 mL soln nicotine 7 mg/24 hr daily 7 mg transdermal DAILY #7 ea 07/14/23 transdermal patch prednisone 10 mg tablet See Taper PO DIRECTED #20 tabs 07/14/23 albuterol sulfate 2.5 mg/3 mL 2.5 mg (3 mL) inhalation Q4-6H PRN 12/29/23 (0.083 %) solution for nebulization shortness of breath or wheezing #75 mL albuterol sulfate 90 mcg/actuation 2 puff inhalation Q4-6H PRN 12/29/23 aerosol inhaler shortness of breath or wheezing #8.5 grams amoxicillin 500 mg capsule 1,000 mg (2 x 500 mg) PO BID 5 12/29/23 days #20 caps prednisone 20 mg tablet 60 mg (3 x 20 mg) PO DAILY 5 days 12/29/23 #15 tabs albuterol sulfate 90 mcg/actuation 2 puff inhalation .q20 minutes PRN 05/21/24 aerosol inhaler shortness of breath or wheezing #8.5 grams benzocaine 15 mg-menthol 2.6 mg 1 andrew mucous membrane Q2-4H PRN 05/21/24 lozenges (Cepacol Sore Throat sore throat #16 ea (benzocaine-menthol)) penicillin V potassium 500 mg 500 mg PO BID 10 days #20 tabs 05/21/24 tablet prednisone 20 mg tablet 40 mg (2 x 20 mg) PO DAILY 4 days 05/21/24 #8 tabs acetaminophen 500 mg tablet 500 - 1,000 mg (1 - 2 x 500 mg) PO 09/25/24 (Tylenol Extra Strength) Q6H PRN pain #30 tabs cyclobenzaprine 10 mg tablet 10 mg PO TID PRN muscle spasm #14 09/25/24 tabs lidocaine 4 % topical patch 1 patch topical DAILY PRN pain #30 09/25/24 (AsperFlex (lidocaine)) ea prednisone 20 mg tablet 40 mg (2 x 20 mg) PO DAILY 5 days 09/25/24 #10 tabs cephalexin 500 mg capsule 500 mg PO QID 7 days #28 caps 10/02/24 doxycycline hyclate 100 mg capsule 100 mg PO BID 7 days #14 caps 10/02/24 Allergies Allergy/AdvReac Type Severity Reaction Status Date / Time No Known Allergies Allergy Verified 10/02/24 11:44 [No Known Allergies*] Review of Systems Review of Systems: Constitutional : No Fever, No Chills ENT/Mouth : No sore throat, No Rhinorrhea Eyes: No Eye Pain, No Swelling, No Redness Cardiovascular : No Chest Pain, No SOB Respiratory : No Cough, No Sputum Gastrointestinal : No Nausea, No Vomiting, No Diarrhea, No abdominal Pain Genitourinary : No Dysuria, No Hematuria Musculoskeletal : No joint pain, No Myalgias, No Joint Swelling Skin : No Skin Lesions, positive skin rash Neuro : No Weakness, No Numbness, No Headache All other systems reviewed and are negative PMFSH Past Medical History Attestation statement: The following information was validated with the patient. Source: old records reviewed Medical History Cocaine abuse Asthma Social History Social History Alcohol intake: current Alcohol intake frequency: does not drink Patient Tobacco Use Status: Current everyday Tobacco user Tobacco use type: Cigarette Second Hand Smoke Exposure: No Substance Use Type: Marijuana Advance Directives: No Advance Directives Information Provided: No service: No Physical Exam Vital Signs: Vital Signs: Last Vital Signs Temp 98 F 10/02/24 11:40 Pulse 94 10/02/24 11:40 Resp 19 10/02/24 11:40 BP 112/42 L 10/02/24 11:40 Pulse Ox 98 10/02/24 11:40 O2 Del Method Room Air 10/02/24 11:40 BMI result Body Mass Index 23.3 Appearance: Alert. Oriented X3. No acute distress. Eyes: Pupils equal, round and reactive to light. ENT: Pharynx normal. Neck: Normal inspection. Neck supple. CVS: Normal heart rate and rhythm. Pulses normal. Respiratory: No respiratory distress. Breath sounds normal. Abdomen: Soft and nontender. Skin: Skin warm and dry. Normal skin color. Normal skin turgor. Extremities: No lower extremity edema. normal ROM of wrist, L hand dorsum only scabbed small puncture no fluctuance there is mild erythema, fingers not involved can flex and ext fingers, NV intact, wrist no pain with passive or active motion, no lymphangitis Neuro: Oriented X 3. No motor deficit. No sensory deficit. CN2-12 intact Course Course Course Narrative: This is a Rapid Medical Examination (RME) performed by Gonzalo Jackson PA-C in triage. Full HPI, ROS, assessment and treatment plan per primary provider in the Main ED. 54 yo moldovan speaking nail here w/ left wrist pain since yesterday. states he was working on cabinets when a dirty nail punctured his left wrist. the nail became lodged in his wrist and he was able to remove it himself. tdap not UTD. + puncture wound to ulnar aspect of L wrist. no drainage. no palpable fb. +swelling and erythema +2+ radial/ ulnar pulse intact. Plan: labs, xr, tdap booster Medical Decision Making Medical Decision Making MDM Narrative: 54 yo male with asthma here with L hand puncture wound no signs of abscess but there is mild erythema no signs of septic joint and no systemic symptoms will obtain xray, labs, start on cephalexin and doxy he has had prior tdap before. given return precautions. Differential Diagnosis Differential Diagnoses: The differential diagnosis associated with the presentation includes cellulitis Admission/Observation Consideration of admission/observation: Escalation of care including admission/observation considered not toxic can be managed with oral meds Lab Data 10/02/24 12:29 10/02/24 12:29 Labs: Lab Results 10/02/24 Range/Units 12:29 WBC 9.9 (4.8-10.8) X10*3/uL RBC 3.93 L (4.60-5.80) X10*6/uL Hgb 12.6 L (14.0-18.0) g/dl Hct 38.2 L (42.0-52.0) % MCV 97.2 (80.0-98.0) fL MCH 32.1 (27.0-33.0) pg MCHC 33.0 (31.0-36.0) g/dl RDW 12.8 (11.0-16.0) % Plt Count 375 (160-400) X10*3/uL MPV 8.8 L (9.4-12.4) fL Immature Gran % (Auto) 0.3 (0.0-0.4) % Neut % (Auto) 71.4 (45-73) % Lymph % (Auto) 17.3 L (20-40) % [place] % (Auto) 9.2 (2-11) % Eos % (Auto) 1.6 (0-4) % Baso % (Auto) 0.2 (0-2) % Lymph # (Auto) 1.7 (1.2-4.9) X10*3/uL [place] # (Auto) 0.9 (0.1-1.2) X10*3/uL Eos # (Auto) 0.2 (0.0-0.4) X10*3/uL Baso # (Auto) 0.0 (0.0-0.2) X10*3/uL Abs Immat Gran (auto) 0.03 (0.00-0.03) X10*3/uL Absolute Neuts (auto) 7.1 (2.0-8.3) x10*3/uL Absolute Nucleated RBC 0.000 (0.0-0.012) X10*3/uL Nucleated RBC % (auto) 0.0 (0.0-0.2) /100WBC Sodium 139 (135-145) mmol/L Potassium 4.4 (3.3-5.1) mmol/L Chloride 109 H (96-108) mmol/L Carbon Dioxide 25 (22-29) mmol/L Anion Gap 9 L (12-20) BUN 12 (9-16) mg/dL Creatinine 0.68 (0.5-1.4) mg/dL Estim Creat Clear Calc 109.2 Estimated GFR > 60 Random Glucose 97 (60-115) mg/dL Calcium 8.4 D (8.4-10.2) mg/dL Total Bilirubin 0.9 (0.0-1.0) mg/dL AST 28 (5-37) U/L ALT 14 (0-40) U/L Alkaline Phosphatase 74 (39-117) U/L C-Reactive Protein 1.84 H (< or = 0.50) mg/dL Total Protein 7.2 (6.5-8.0) g/dL Albumin 3.9 (3.5-5.0) g/dL Independent Interpretation I performed an independent interpretation of an: Plain X-Ray (no FB) Radiology Impression Discussion of test interpretation with radiology: I have reviewed the radiologist's reading. External Record Review External record reviewed: Outpatient record Prescription Management I considered prescription management with: Antibiotic Discharge Plan Discharge Clinical Impression: Puncture wound Cellulitis Qualifiers: Site of cellulitis: extremity Site of cellulitis of extremity: upper extremity Laterality: left Qualified Code(s): L03.114 - Cellulitis of left upper limb Patient Disposition: Home, Self-Care Instructions: Diphtheria/Acellular Pertussis/Tetanus Booster Vaccine (By injection), Cellulitis (ED) Additional Instructions: return for fevers, worsening symptoms, swelling, unable to move hand or any other concerns. take all antibiotics On a cephalosporin?antibiotic, softer bowel movements are to be expected. Call your provider if you move your bowels more than 4 times a day, your bowel movements are almost all liquid, or you get a rash.?? On doxycycline, do not take pills immediately before going to bed and swallow pills with plenty of water. Avoid direct sunlight, iron, antacids, and Pepto Bismol. Call your provider if you develop new ringing in your ears, new problems hearing, dizziness, difficulty swallowing, rash, abdominal discomfort, nausea, or diarrhea.? Prescriptions: New cephalexin 500 mg capsule 500 mg PO QID 7 Days Qty: 28 0RF doxycycline hyclate 100 mg capsule 100 mg PO BID 7 Days Qty: 14 0RF No Action amoxicillin 500 mg capsule 1,000 mg PO BID 5 Days Qty: 20 0RF albuterol sulfate 2.5 mg /3 mL (0.083 %) solution for nebulization 2.5 mg inhalation Q4-6H PRN (Reason: shortness of breath or wheezing) Qty: 75 0RF prednisone 20 mg tablet 60 mg PO DAILY 5 Days Qty: 15 0RF albuterol sulfate 90 mcg/actuation HFA aerosol inhaler 2 puff inhalation Q4-6H PRN (Reason: shortness of breath or wheezing) Qty: 8.5 0RF ipratropium-albuterol 0.5 mg-3 mg(2.5 mg base)/3 mL Solution For Nebulization 3 ml inhalation RQ4H WHILE AWAKE Qty: 90 0RF nicotine 7 mg/24 hr Patch 24 Hour 7 mg transdermal DAILY Qty: 7 0RF prednisone 10 mg tablet See Taper PO DIRECTED Qty: 20 0RF Taper: Prednisone 40 mg daily for 2 Days and 0 Hour 30 mg daily for 2 Days and 0 Hour 20 mg daily for 2 Days and 0 Hour 10 mg daily for 2 Days and 0 Hour Rx Instructions: see taper instructions albuterol sulfate [Ventolin HFA] 90 mcg/actuation HFA aerosol inhaler 2 puff inhalation Q4-6H PRN (Reason: shortness of breath or wheezing) Qty: 8.5 0RF prednisone 20 mg tablet 40 mg PO DAILY 4 Days Qty: 8 0RF albuterol sulfate 90 mcg/actuation HFA aerosol inhaler 2 puff inhalation .q20 minutes PRN (Reason: shortness of breath or wheezing) Qty: 8.5 0RF penicillin V potassium 500 mg tablet 500 mg PO BID 10 Days Qty: 20 0RF Cepacol Sore Throat (alisha-men) 15-2.6 mg lozenge 1 andrew mucous membrane Q2-4H PRN (Reason: sore throat) Qty: 16 0RF cyclobenzaprine 10 mg tablet 10 mg PO TID PRN (Reason: muscle spasm) Qty: 14 0RF prednisone 20 mg tablet 40 mg PO DAILY 5 Days Qty: 10 0RF lidocaine [AsperFlex (lidocaine)] 4 % adhesive patch,medicated 1 patch topical DAILY PRN (Reason: pain) Qty: 30 0RF acetaminophen [Tylenol Extra Strength] 500 mg tablet 500 - 1,000 mg PO Q6H PRN (Reason: pain) Qty: 30 0RF Print Language: Sammarinese
[2024-10-02 12:35] LABS: MANUAL DIFF FLAG NO
[2024-10-02 12:56] LABS: Alanine Aminotransferase 14 U/L (0-40); Albumin Level 3.9 g/dL (3.5-5.0); Alkaline Phosphatase 74 U/L (39-117); Anion Gap 9 (12-20); Aspartate Amino Transferase 28 U/L (5-37); Bilirubin Total 0.9 mg/dL (0.0-1.0); Blood Urea Nitrogen 12 mg/dL (9-16); C Reactive Protein 1.84 mg/dL (< or = 0.50); Calcium 8.4 mg/dL (8.4-10.2); Carbon Dioxide 25 mmol/L (22-29); Chloride 109 mmol/L (96-108); Creatinine Clr Calc Pharmacy 109.2; Estimated Glomerular Filt Rate > 60; Glucose Random 97 mg/dL (60-115); Potassium 4.4 mmol/L (3.3-5.1); Sodium 139 mmol/L (135-145); Total Protein 7.2 g/dL (6.5-8.0)
[2024-10-02 13:02] LABS: Basophils Percent Auto 0.2 % (0-2); Eosinophils Absolute Auto 0.2 X10*3/uL (0.0-0.4); Eosinophils Percent Auto 1.6 % (0-4); Hematocrit 38.2 % (42.0-52.0); Hemoglobin 12.6 g/dl (14.0-18.0); Imm Gran Abs Auto 0.03 X10*3/uL (0.00-0.03); Imm Gran Pct Auto 0.3 % (0.0-0.4); Lymphocytes Absolute Auto 1.7 X10*3/uL (1.2-4.9); Lymphocytes Percent Auto 17.3 % (20-40); Mean Corpuscular Hemoglobin 32.1 pg (27.0-33.0); Mean Corpuscular Volume 97.2 fL (80.0-98.0); Mean Platelet Volume 8.8 fL (9.4-12.4); Monocytes Absolute Auto 0.9 X10*3/uL (0.1-1.2); Monocytes Percent Auto 9.2 % (2-11); Neutrophils Absolute Auto 7.1 x10*3/uL (2.0-8.3); Neutrophils Percent Auto 71.4 % (45-73); Platelet Count 375 X10*3/uL (160-400); Red Blood Count 3.93 X10*6/uL (4.60-5.80); Red Cell Distribution Width 12.8 % (11.0-16.0); White Blood Count 9.9 X10*3/uL (4.8-10.8)
[2024-10-02] MEDS: Diphth,Pertus(ACell),Tet Adult 0.5 ML SYRINGE IM (13:20)
[2024-10-02] MEDS: Doxycycline Monohydrate 100 MG CAPSULE PO (13:21)
[2024-10-02] MEDS: cephALEXin 500 MG CAPSULE PO (13:21)
[2024-10-02 13:23] VITALS: BP 112/42; PULSE 94; RESP 19; TEMP 36.6; O2SAT 98
[2024-10-02 13:43] LABS: Erythrocyte Sedimentation Rate 14 MM/HR (0-15)
== END 2024-10-02 13:24 | disposition home or self-care (01) ==
PROVIDERS: Physician Assistant Medical; Emergency Provider Emergency Medicine
DX: S61.432A Puncture wound without foreign body of left hand, initial encounter (principal); L03.114 Cellulitis of left upper limb; M79.642 Pain in left hand; F17.210 Nicotine dependence, cigarettes, uncomplicated; W29.4XXA Contact with nail gun, initial encounter; Y93.89 Activity, other specified; Y92.89 Other specified places as the place of occurrence of the external cause; Y99.0 Civilian activity done for income or pay; Z23 Encounter for immunization
CPT/HCPCS: 36415; 73110; 73130; 80053; 85025; 85652; 86140; 90471; 90715; 99282; 99284

== ENCOUNTER → 2024-10-02 11:40 | Outpatient (BNV) | payer MEDICAID, SELFPAY | PROVIDERS: Emergency Provider Emergency Medicine; Visit Provider Radiology Diagnostic Radiology | DX: S61.532A Puncture wound without foreign body of left wrist, initial encounter (principal) | CPT/HCPCS: 73110; 73130 ==

== ENCOUNTER 2025-01-07 22:55 | Emergency (ER) | payer MEDICAID, SELFPAY ==
--- NOTE | ~2025-01-07 | XR_ITS ---
CLINICAL HISTORY: dyspnea 1 view chest x-ray. Comparison: CR/SR - XR CHEST 1V - 07/19/24 17:43 EST Findings: No consolidation, pneumothorax, or effusion. Heart size normal. Impression: 1. No acute cardiopulmonary process. No focal pulmonary consolidation. This document has been electronically signed by: Ford Main MD on 01/08/2025 04:18:14
[2025-01-07 22:57] VITALS: BP 110/64; PULSE 81; RESP 17; TEMP 36.7; O2SAT 98; BMI 22.0
[2025-01-08] VITALS (8 sets, daily range): BP systolic 88–124; BP diastolic 50–73; PULSE 68–80; RESP 15–16; TEMP 36.6–36.8; O2SAT 97–100
[2025-01-08 01:14] LABS: Glucose, Whole Blood 110 mg/dL (60-115)
--- NOTE | 2025-01-08 02:29 | ED_ITS ---
HPI - General Adult General Chief complaint: General Medical Stated complaint: Fluctuating blood pressure Time Seen by Provider: 01/08/25 02:30 Source: patient Limitations: language barrier History of Present Illness ED Provider: Renetta Medeiros PA-C HPI narrative: 54-year-old male presents with concerns for low blood pressure at home. Patient states he checks his blood pressure at home, the reading was 84/45. Denies chest pain, shortness of breath, dizziness. Patient states he has been having to use inhaler more frequently over the past week. Denies active cough and cold symptoms no fevers. No sick contacts with viral illness. Related Data Previous Rx's ?Medication ?Instructions ?Recorded albuterol sulfate 90 mcg/actuation 2 puff inhalation Q4-6H PRN 07/14/23 aerosol inhaler (Ventolin HFA) shortness of breath or wheezing #8.5 grams ipratropium 0.5 mg-albuterol 3 mg 3 ml inhalation RQ4H WHILE AWAKE 07/14/23 (2.5 mg base)/3 mL nebulization #90 mL soln nicotine 7 mg/24 hr daily 7 mg transdermal DAILY #7 ea 07/14/23 transdermal patch prednisone 10 mg tablet See Taper PO DIRECTED #20 tabs 07/14/23 albuterol sulfate 2.5 mg/3 mL 2.5 mg (3 mL) inhalation Q4-6H PRN 12/29/23 (0.083 %) solution for nebulization shortness of breath or wheezing #75 mL albuterol sulfate 90 mcg/actuation 2 puff inhalation Q4-6H PRN 12/29/23 aerosol inhaler shortness of breath or wheezing #8.5 grams amoxicillin 500 mg capsule 1,000 mg (2 x 500 mg) PO BID 5 12/29/23 days #20 caps prednisone 20 mg tablet 60 mg (3 x 20 mg) PO DAILY 5 days 12/29/23 #15 tabs albuterol sulfate 90 mcg/actuation 2 puff inhalation .q20 minutes PRN 05/21/24 aerosol inhaler shortness of breath or wheezing #8.5 grams benzocaine 15 mg-menthol 2.6 mg 1 andrew mucous membrane Q2-4H PRN 05/21/24 lozenges (Cepacol Sore Throat sore throat #16 ea (benzocaine-menthol)) penicillin V potassium 500 mg 500 mg PO BID 10 days #20 tabs 05/21/24 tablet prednisone 20 mg tablet 40 mg (2 x 20 mg) PO DAILY 4 days 05/21/24 #8 tabs acetaminophen 500 mg tablet 500 - 1,000 mg (1 - 2 x 500 mg) PO 09/25/24 (Tylenol Extra Strength) Q6H PRN pain #30 tabs cyclobenzaprine 10 mg tablet 10 mg PO TID PRN muscle spasm #14 09/25/24 tabs lidocaine 4 % topical patch 1 patch topical DAILY PRN pain #30 09/25/24 (AsperFlex (lidocaine)) ea prednisone 20 mg tablet 40 mg (2 x 20 mg) PO DAILY 5 days 09/25/24 #10 tabs cephalexin 500 mg capsule 500 mg PO QID 7 days #28 caps 10/02/24 doxycycline hyclate 100 mg capsule 100 mg PO BID 7 days #14 caps 10/02/24 prednisone 20 mg tablet 40 mg (2 x 20 mg) PO DAILY #10 tabs 01/08/25 Allergies Allergy/AdvReac Type Severity Reaction Status Date / Time No Known Allergies Allergy Verified 01/07/25 23:02 [No Known Allergies*] Review of Systems 2 Review of Systems: Yes all other systems are reviewed and are negative Constitutional: Constitutional: Denies fatigue, Denies fever(s) and Denies headache(s) ENT: Denies dizziness and Denies headache(s) Cardiovascular: Cardiovascular: Denies chest pain and Denies dyspnea Respiratory: Respiratory: Denies cough, Denies dyspnea and Reports wheezing Neurologic: Denies dizziness and Denies headache(s) Endocrine: Endocrine: Denies fatigue Allergic/Immunologic: Allergic/Immunologic: Reports wheezing PMFSH Past Medical History Attestation statement: The following information was validated with the patient. Medical History Cocaine abuse Asthma Social History Social History Alcohol intake: current Alcohol intake frequency: does not drink Patient Tobacco Use Status: Current everyday Tobacco user Tobacco use type: Cigarette Second Hand Smoke Exposure: No Substance Use Type: Marijuana Advance Directives: No Advance Directives Information Provided: Yes Do you have a plan to hurt others: No Plan service: No Physical Exam ED Vital Signs: Vital Signs - 24 hr 01/07/25 22:57 01/08/25 00:49 01/08/25 01:07 Temperature 98.0 F 97.9 F Pulse Rate 81 69 71 Respiratory Rate 17 15 Blood Pressure 110/64 105/65 88/53 L Pulse Oximetry 98 100 Oxygen Delivery Method Room Air Room Air 01/08/25 01:08 01/08/25 01:09 Temperature Pulse Rate 68 71 Respiratory Rate Blood Pressure 96/50 L 99/60 Pulse Oximetry Oxygen Delivery Method BMI result Body Mass Index 22.0 Const Other: Alert well-appearing Orientation/consciousness: patient oriented x3 Resp Other: Nonlabored respirations, occasional faint expiratory wheeze Cardio Other: Normal peripheral perfusion Skin Other: Warm dry no rash Neuro General: patient oriented x3, gait normal, no focal motor deficits and CN's II- XI intact bilaterally Psych Other: Cooperative Medications Administered Discontinued Medications Generic Name Dose Route Start Last Admin Trade Name Freq PRN Reason Stop Dose Admin Sodium Chloride 1,000 mls @ 999 mls/hr 01/08/25 02:50 01/08/25 03:00 Ns IV 01/08/25 03:50 999 mls/hr .Q1H1M ONE Administration Medical Decision Making Medical Decision Making MDM Narrative: 54-year-old male with a history of asthma and cocaine abuse presents with concerns for low blood pressure at home. Patient states he checks his blood pressure at home, the reading was 84/45. Denies chest pain, shortness of breath, dizziness. Patient states he has been having to use inhaler more frequently over the past week. Denies active cough and cold symptoms no fevers. No sick contacts with viral illness. Problem: Cocaine abuse, asthma History: Per patient I have considered the following differential diagnoses: An accurate blood pressure reading, orthostatic hypotension, dehydration, ACS, asthma exacerbation, pneumonia Plan: Screening labs including a cardiac enzymes EKG and chest x-ray were obtained from triage. Orthostatic vitals were obtained and the patient was not orthostatic. He will be treated for a mild asthma exacerbation, he does not require an updraft here in the ER. We will be sending with a prescription for prednisone, he has albuterol at home. I advised the patient that he follow up with his primary care provider, and that perhaps he needs a new blood pressure machine at home. I have independently reviewed the following tests: Labs: No leukocytosis, not anemic, no electrolyte abnormality troponin negative EKG: Normal sinus rhythm with sinus arrhythmia, rate of 62, no ischemic changes no ectopy Chest x-ray: No pneumonia no pleural effusion, no pulmonary edema Lab Data 01/08/25 02:57 01/08/25 02:57 Labs: Lab Results 01/08/25 01/08/25 Range/Units 01:06 02:57 WBC 9.5 (4.8-10.8) X10*3/uL RBC 3.89 L (4.60-5.80) X10*6/uL Hgb 12.5 L (14.0-18.0) g/dl Hct 37.1 L (42.0-52.0) % MCV 95.4 (80.0-98.0) fL MCH 32.1 (27.0-33.0) pg MCHC 33.7 (31.0-36.0) g/dl RDW 12.8 (11.0-16.0) % Plt Count 317 (160-400) X10*3/uL MPV 9.1 L (9.4-12.4) fL Immature Gran % (Auto) 0.2 (0.0-0.4) % Neut % (Auto) 54.6 (45-73) % Lymph % (Auto) 32.9 (20-40) % [place] % (Auto) 9.8 (2-11) % Eos % (Auto) 2.1 (0-4) % Baso % (Auto) 0.4 (0-2) % Lymph # (Auto) 3.1 (1.2-4.9) X10*3/uL [place] # (Auto) 0.9 (0.1-1.2) X10*3/uL Eos # (Auto) 0.2 (0.0-0.4) X10*3/uL Baso # (Auto) 0.0 (0.0-0.2) X10*3/uL Abs Immat Gran (auto) 0.02 (0.00-0.03) X10*3/uL Absolute Neuts (auto) 5.2 (2.0-8.3) x10*3/uL Absolute Nucleated RBC 0.000 (0.0-0.012) X10*3/uL Nucleated RBC % (auto) 0.0 (0.0-0.2) /100WBC Sodium 138 (135-145) mmol/L Potassium 4.2 (3.3-5.1) mmol/L Chloride 107 (96-108) mmol/L Carbon Dioxide 20 L (22-29) mmol/L Anion Gap 15 (12-20) BUN 16 (9-16) mg/dL Creatinine 0.70 (0.5-1.4) mg/dL Estim Creat Clear Calc 103.5 Estimated GFR > 60 POC Glucose 110 (60-115) mg/dL Random Glucose 94 (60-115) mg/dL Calcium 8.7 (8.4-10.2) mg/dL Total Bilirubin 0.9 (0.0-1.0) mg/dL AST 25 (5-37) U/L ALT 21 (0-40) U/L Alkaline Phosphatase 83 (39-117) U/L Troponin I High Sens < 2.7 (<3.5-35.0) ng/L Total Protein 6.9 (6.5-8.0) g/dL Albumin 3.8 (3.5-5.0) g/dL Discharge Plan Discharge Clinical Impression: Labile blood pressure, Asthma Patient Disposition: Home, Self-Care Additional Instructions: All of your screening labs including a cardiac enzymes were normal, there were no concerning changes on your EKG. The chest x-ray is clear. We have not documented any abnormal blood pressures here in the emergency department. The blood pressure machine that you have at home maybe inaccurate. Follow up with your primary care provider as needed. In regard to your asthma, you are being treated for a mild asthma exacerbation. Use your home breathing treatments as needed, take the steroid as directed. Follow up with your primary care provider as needed. Prescriptions: New prednisone 20 mg tablet 40 mg PO DAILY Qty: 10 0RF No Action amoxicillin 500 mg capsule 1,000 mg PO BID 5 Days Qty: 20 0RF albuterol sulfate 2.5 mg /3 mL (0.083 %) solution for nebulization 2.5 mg inhalation Q4-6H PRN (Reason: shortness of breath or wheezing) Qty: 75 0RF prednisone 20 mg tablet 60 mg PO DAILY 5 Days Qty: 15 0RF albuterol sulfate 90 mcg/actuation HFA aerosol inhaler 2 puff inhalation Q4-6H PRN (Reason: shortness of breath or wheezing) Qty: 8.5 0RF cephalexin 500 mg capsule 500 mg PO QID 7 Days Qty: 28 0RF doxycycline hyclate 100 mg capsule 100 mg PO BID 7 Days Qty: 14 0RF ipratropium-albuterol 0.5 mg-3 mg(2.5 mg base)/3 mL Solution For Nebulization 3 ml inhalation RQ4H WHILE AWAKE Qty: 90 0RF nicotine 7 mg/24 hr Patch 24 Hour 7 mg transdermal DAILY Qty: 7 0RF prednisone 10 mg tablet See Taper PO DIRECTED Qty: 20 0RF Taper: Prednisone 40 mg daily for 2 Days and 0 Hour 30 mg daily for 2 Days and 0 Hour 20 mg daily for 2 Days and 0 Hour 10 mg daily for 2 Days and 0 Hour Rx Instructions: see taper instructions albuterol sulfate [Ventolin HFA] 90 mcg/actuation HFA aerosol inhaler 2 puff inhalation Q4-6H PRN (Reason: shortness of breath or wheezing) Qty: 8.5 0RF prednisone 20 mg tablet 40 mg PO DAILY 4 Days Qty: 8 0RF albuterol sulfate 90 mcg/actuation HFA aerosol inhaler 2 puff inhalation .q20 minutes PRN (Reason: shortness of breath or wheezing) Qty: 8.5 0RF penicillin V potassium 500 mg tablet 500 mg PO BID 10 Days Qty: 20 0RF Cepacol Sore Throat (alisha-men) 15-2.6 mg lozenge 1 andrew mucous membrane Q2-4H PRN (Reason: sore throat) Qty: 16 0RF cyclobenzaprine 10 mg tablet 10 mg PO TID PRN (Reason: muscle spasm) Qty: 14 0RF prednisone 20 mg tablet 40 mg PO DAILY 5 Days Qty: 10 0RF lidocaine [AsperFlex (lidocaine)] 4 % adhesive patch,medicated 1 patch topical DAILY PRN (Reason: pain) Qty: 30 0RF acetaminophen [Tylenol Extra Strength] 500 mg tablet 500 - 1,000 mg PO Q6H PRN (Reason: pain) Qty: 30 0RF Print Language: [place]
--- NOTE | 2025-01-08 02:50 | ECG_ITS ---
Test Reason : HYPOTENSION Blood Pressure : */* mmHG Vent. Rate : 62 BPM Atrial Rate : 62 BPM P-R Int : 146 ms QRS Dur : 84 ms QT Int : 426 ms P-R-T Axes : 81 74 73 degrees QTcB Int : 432 ms Normal sinus rhythm with sinus arrhythmia Early repolarization Normal ECG When compared with ECG of 19-Jul-2024 12:01, No significant change was found Referred By: Pedro Pablo Alvarez Electronically Signed By: CHRISTY STACK
[2025-01-08] MEDS: 0.9 % Sodium Chloride 1,000 ML 999 ML IV (03:00)
[2025-01-08 03:01] LABS: MANUAL DIFF FLAG NO
[2025-01-08 03:23] LABS: Alanine Aminotransferase 21 U/L (0-40); Albumin Level 3.8 g/dL (3.5-5.0); Alkaline Phosphatase 83 U/L (39-117); Anion Gap 15 (12-20); Aspartate Amino Transferase 25 U/L (5-37); Bilirubin Total 0.9 mg/dL (0.0-1.0); Blood Urea Nitrogen 16 mg/dL (9-16); Calcium 8.7 mg/dL (8.4-10.2); Carbon Dioxide 20 mmol/L (22-29); Chloride 107 mmol/L (96-108); Creatinine Clr Calc Pharmacy 103.5; Estimated Glomerular Filt Rate > 60; Glucose Random 94 mg/dL (60-115); Potassium 4.2 mmol/L (3.3-5.1); Sodium 138 mmol/L (135-145); Total Protein 6.9 g/dL (6.5-8.0)
[2025-01-08 03:33] LABS: Troponin-I High Sensitivity < 2.7 ng/L (<3.5-35.0)
[2025-01-08 03:41] LABS: Basophils Percent Auto 0.4 % (0-2); Eosinophils Absolute Auto 0.2 X10*3/uL (0.0-0.4); Eosinophils Percent Auto 2.1 % (0-4); Hematocrit 37.1 % (42.0-52.0); Hemoglobin 12.5 g/dl (14.0-18.0); Imm Gran Abs Auto 0.02 X10*3/uL (0.00-0.03); Imm Gran Pct Auto 0.2 % (0.0-0.4); Lymphocytes Absolute Auto 3.1 X10*3/uL (1.2-4.9); Lymphocytes Percent Auto 32.9 % (20-40); Mean Corpuscular HGB Conc 33.7 g/dl (31.0-36.0); Mean Corpuscular Hemoglobin 32.1 pg (27.0-33.0); Mean Corpuscular Volume 95.4 fL (80.0-98.0); Mean Platelet Volume 9.1 fL (9.4-12.4); Monocytes Absolute Auto 0.9 X10*3/uL (0.1-1.2); Monocytes Percent Auto 9.8 % (2-11); Neutrophils Absolute Auto 5.2 x10*3/uL (2.0-8.3); Neutrophils Percent Auto 54.6 % (45-73); Platelet Count 317 X10*3/uL (160-400); Red Blood Count 3.89 X10*6/uL (4.60-5.80); Red Cell Distribution Width 12.8 % (11.0-16.0); White Blood Count 9.5 X10*3/uL (4.8-10.8)
== END 2025-01-08 04:26 | disposition home or self-care (01) ==
PROVIDERS: Emergency Provider Internal Medicine
DX: R09.89 Other specified symptoms and signs involving the circulatory and respiratory systems (principal); J45.901 Unspecified asthma with (acute) exacerbation; F17.210 Nicotine dependence, cigarettes, uncomplicated; Z79.899 Other long term (current) drug therapy
CPT/HCPCS: 36415; 71045; 80053; 82947; 84484; 85025; 93005; 96360; 99284; 99285

== ENCOUNTER → 2025-01-08 02:50 | Outpatient (BNV) | payer MEDICAID, SELFPAY | PROVIDERS: Emergency Provider Internal Medicine; Visit Provider Internal Medicine | DX: I95.9 Hypotension, unspecified (principal) | CPT/HCPCS: 93010 ==

== ENCOUNTER → 2025-01-08 03:38 | Outpatient (BNV) | payer MEDICAID, SELFPAY | PROVIDERS: Emergency Provider Internal Medicine; Visit Provider Radiology Diagnostic Radiology | DX: R06.00 Dyspnea, unspecified (principal) | CPT/HCPCS: 71045 ==

== ENCOUNTER 2025-03-19 11:00 | Emergency (ER) | payer MEDICAID, SELFPAY ==
--- NOTE | 2025-03-19 | ECG_ITS ---
Test Reason : chest pain Blood Pressure : */* mmHG Vent. Rate : 74 BPM Atrial Rate : 74 BPM P-R Int : 148 ms QRS Dur : 80 ms QT Int : 380 ms P-R-T Axes : 86 69 72 degrees QTcB Int : 421 ms Normal sinus rhythm Normal ECG When compared with ECG of 08-Jan-2025 03:01, No significant change was found Referred By: Generic ED Physician Electronically Signed By: MARY WARE MD
--- NOTE | ~2025-03-19 | XR_ITS ---
CLINICAL HISTORY: sob 2 view chest x-ray. Comparison: None Findings: The lungs are adequately expanded. No focal consolidation. No effusion or pneumothorax. Cardiac and mediastinal contours are within normal limits. No acute osseous abnormality Impression: No acute process. This document has been electronically signed by: Trevin Castañeda MD on 03/19/2025 12:25:21
[2025-03-19 11:08] VITALS: BP 135/81; BP 137/72; PULSE 75; RESP 18; TEMP 36.6; O2SAT 97; O2SAT 99; BMI 23.2
--- NOTE | 2025-03-19 11:32 | ED_ITS ---
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 Reports associated chest tightness, chills, subjective fevers. No known sick contacts. He is not on oxygen at baseline. He has been using his inhaler at home without much relief. He admits to running out of his nebulizer solution. Related Data Previous Rx's ?Medication ?Instructions ?Recorded albuterol sulfate 90 mcg/actuation 2 puff inhalation Q 4-6H PRN 07/14/23 aerosol inhaler (Ventolin HFA) shortness of breath or wheezing #8.5 grams ipratropium 0.5 mg-albuterol 3 mg 3 ml inhalation RQ4H WHILE AWAKE 07/14/23 (2.5 mg base)/3 mL nebulization #90 mL soln nicotine 7 mg/24 hr daily 7 mg transdermal DAILY #7 ea 07/14/23 transdermal patch prednisone 10 mg tablet See Taper PO DIRECTED #20 tabs 07/14/23 albuterol sulfate 2.5 mg/3 mL 2.5 mg (3 mL) inhalation Q4-6H PRN 12/29/23 (0.083 %) solution for nebulization shortness of breat h or wheezing #75 mL albuterol sulfate 90 mcg/actuation 2 puff inhalation Q 4-6H PRN 12/29/23 aerosol inhaler shortness of breath or wheez ing #8.5 grams amoxicillin 500 mg capsule 1,000 mg (2 x 500 mg) PO BI D 5 12/29/23 days #20 caps prednisone 20 mg tablet 60 mg (3 x 20 mg) PO DAILY 5 days 12/29/23 #15 tabs albuterol sulfate 90 mcg/actuation 2 puff inhalation . q20 minutes PRN 05/21/24 aerosol inhaler shortness of breath or wheez ing #8.5 grams benzocaine 15 mg-menthol 2.6 mg 1 andrew mucous membrane Q2-4H PRN 05/21/24 lozenges (Cepacol Sore Throat sore throat #16 ea (benzocaine-menthol)) penicillin V potassium 500 mg 500 mg PO BID 10 days #2 0 tabs 05/21/24 tablet prednisone 20 mg tablet 40 mg (2 x 20 mg) PO DAILY 4 days 05/21/24 #8 tabs acetaminophen 500 mg tablet 500 - 1,000 mg (1 - 2 x 50 0 mg) PO 09/25/24 (Tylenol Extra Strength) Q6H PRN pain #30 tabs cyclobenzaprine 10 mg tablet 10 mg PO TID PRN muscle s pasm #14 09/25/24 tabs lidocaine 4 % topical patch 1 patch topical DAILY PRN pain #30 09/25/24 (AsperFlex (lidocaine)) ea prednisone 20 mg tablet 40 mg (2 x 20 mg) PO DAILY 5 days 09/25/24 #10 tabs cephalexin 500 mg capsule 500 mg PO QID 7 days #28 cap s 10/02/24 doxycycline hyclate 100 mg capsule 100 mg PO BID 7 day s #14 caps 10/02/24 prednisone 20 mg tablet 40 mg (2 x 20 mg) PO DAILY # 10 tabs 01/08/25 albuterol sulfate 1.25 mg/3 mL 1.25 mg (3 mL) inhalati on Q4-6H 03/19/25 solution for nebulization PRN shortness of breath or wheezing #75 mL azithromycin 250 mg tablet See Rx Instructions PO .COM PLEX #6 03/19/25 tabs prednisone 20 mg tablet 40 mg (2 x 20 mg) PO DAILY 5 days 03/19/25 #10 tabs Allergies Allergy/AdvReac Type Severity Reaction Status Date / Time No Known Allergies (No Known Allergy Verified 03/19/25 11:13 Allergies*) Review of Systems 2 Review of Systems: Constitutional: No fever, chills, fatigue, night sweats, weight changes ENT/Mouth: No ear pain, hearing loss, nasal congestion, sinus pain, rhinorrhea, sore throat Eyes: No eye pain, swelling, redness, vision changes, discharge Cardio: No chest pain, palpitations, CM, orthopnea, peripheral edema, +chest tightness Pulm: No cough, sputum, wheezing, dyspnea, hemoptysis, +sob GI: No nausea, vomiting, hematemesis, abdominal pain, diarrhea, constipation, hematochezia, melena : No irregular bleeding, dysuria, frequency, urgency, hesitancy, hematuria, flank pain, urinary flow changes, urinary incontinence or retention MSK: No back pain, neck pain, joint pain, myalgias Skin: No lesions, rashes Neuro: No weakness, numbness, paresthesias, LOC, dizziness, headache Psych: No anxiety/panic, depression, SI/HI, AH/VH All other systems reviewed and are negative. [facility] Past Medical History Attestation statement: The following information was validated with the patient. Source: old records reviewed and nursing notes reviewed Medical History Cocaine abuse Asthma Social History Social History Alcohol intake: former Patient Tobacco Use Status: Current everyday Tobacco user Tobacco use type: Cigarette Smoked in Last 30 Days: Yes Second Hand Smoke Exposure: No Use of substances other than those prescribed or required for medical reasons: Yes Substance Use Type: Marijuana Substance Use Frequency: Daily Advance Directives: No Advance Directives Information Provided: No Do you have a plan to hurt others: No Plan service: No Physical Exam 2 Vital Signs: Vital Signs: Last Vital Signs Temp 97.6 F 03/19/25 14:08 Pulse 65 03/19/25 14:08 Resp 11 L 03/19/25 14:08 BP 123/69 03/19/25 14:08 Pulse Ox 95 03/19/25 14:08 O2 Del Method Room Air 03/19/25 14:08 BMI result Body Mass Index 23.2 Satting 97% on room air, afebrile General: Well appearing, in no acute distress. Skin: Warm, dry, intact. No rashes or lesions. Head: Normocephalic, atraumatic. EENT: Hearing is intact b/l. Conjunctiva clear. Sclera is anicteric. PERRLA. EOM intact. Moist mucous membranes.? Neck: Supple without LAD Cardiac: Chest wall symmetric. RRR. No peripheral edema. No JVD. Lungs: No respiratory distress, no tripoding. No noted cough. Lung sounds diminished with scattered inspiratory and expiratory wheezes. Abdomen: Soft, non-tender, non-distended. No rebound tenderness or guarding. Positive BS x4. Back: No midline spinous or paraspinal tenderness. No step off deformity. Ext: Upper and lower extremities atraumatic, without tenderness, deformity, swelling or erythema Neuro: AOx3. Normal speech. Ambulating with steady gait. Psych: Appropriate mood and affect. Responds appropriately to questions. Course Course Course Narrative: 1257 -- CBC without leukocytosis or left shift. Normocytic anemia, H and H stable when compared to priors. Chemistry without acute electrolyte abnormality requiring intervention. No MICHELLE. Negative COVID, flu, RSV. Chest x-ray without infiltrate or consolidation to suggest pneumonia. No effusion. EKG showing normal sinus rhythm, rate of 74 beats per minute, QT 380, no acute ischemic changes or ST elevations. > medicated with duoneb + solumedrol. Still reports feeling short of breath. IV mag ordered. 1437 --patient has sustained 95% on room air during ambulatory O2 trial. discussed with hospitalist Dr. Sánchez - patient does not meet criteria for inpatient management. Discussed with patient and his . Agreeable to outpatient management with antibiotics and prednisone. Patient has remained stable throughout ED visit today. Discussed worrisome signs and symptoms and when to return to the ED. All questions answered at this time. Patient is agreeable with disposition and stable for discharge. Medications Administered Discontinued Medications Generic Name Dose Route Start Last Admin Trade Name Freq PRN Reason Stop Dose Admin Albuterol Sulfate 2.5 mg/ 0 mg 03/19/25 12:28 03/19/25 12:35 Albuterol/Ipratropium 3 ml INHALE 03/19/25 12:29 5 dose ONCE ONE Administration Magnesium Sulfate 2 gm in 50 mls @ 150 mls/hr 03/19/25 13:16 03/19/25 13:42 Magnesium Sulfate/H2o IV 03/19/25 13:35 Infused ONCE ONE Infusion Methylprednisolone Sodium Succinate 125 mg 03/19/25 11:41 03/19/25 11:46 Methylprednisolone Sod Succ 125 Mg/2 Ml Vial IVPUSH 03/19/25 11:42 125 mg ONCE ONE Administration Medical Decision Making Medical Decision Making [facility] Narrative: 54 year old male with pmhx significant for asthma presents to the ED today via EMS for evaluation of shortness of breath x2 weeks. Vital signs stable. Afebrile. Not hypoxic. On exam, No respiratory distress, no tripoding. No noted cough. There are scattered inspiratory and expiratory wheezes throughout, lung sounds diminished. no peripheral edema. Differential diagnosis includes anemia, electrolyte abnormality, viral syndrome, asthma exacerbation, bronchitis, pneumonia. Lower suspicion for pleural effusion, CHF, ACS, arrhythmia. Plan for labs, viral swabs, EKG, chest x-ray, ED bronch protocol and re- evaluation. Differential Diagnosis Differential Diagnoses: The differential diagnosis associated with the presentation includes As above Admission/Observation Not indicated Consult Healthcare Provider Management of the patient was discussed with: Hospitalist (dr. sánchez) Lab Data MDM Lab Attestation statement: I reviewed the patient's lab results. As above 03/19/25 11:25 03/19/25 12:07 Labs: Lab Results 03/19/25 03/19/25 Range/Units 11:25 12:07 WBC 5.8 (4.8-10.8) X10*3/uL RBC 3.99 L (4.60-5.80) X10*6/uL Hgb 12.5 L (14.0-18.0) g/dl Hct 37.9 L (42.0-52.0) % MCV 95.0 (80.0-98.0) fL MCH 31.3 (27.0-33.0) pg MCHC 33.0 (31.0-36.0) g/dl RDW 13.1 (11.0-16.0) % Plt Count 297 (160-400) X10*3/uL MPV 9.0 L (9.4-12.4) fL Immature Gran % (Auto) 0.2 (0.0-0.4) % Neut % (Auto) 56.8 (45-73) % Lymph % (Auto) 28.7 (20-40) % [place] % (Auto) 8.2 (2-11) % Eos % (Auto) 5.4 H (0-4) % Baso % (Auto) 0.7 (0-2) % Lymph # (Auto) 1.7 (1.2-4.9) X10*3/uL [place] # (Auto) 0.5 (0.1-1.2) X10*3/uL Eos # (Auto) 0.3 (0.0-0.4) X10*3/uL Baso # (Auto) 0.0 (0.0-0.2) X10*3/uL Abs Immat Gran (auto) 0.01 (0.00-0.03) X10*3/uL Absolute Neuts (auto) 3.3 (2.0-8.3) x10*3/uL Absolute Nucleated RBC 0.000 (0.0-0.012) X10*3/uL Nucleated RBC % (auto) 0.0 (0.0-0.2) /100WBC Sodium 144 (135-145) mmol/L Potassium 3.9 (3.3-5.1) mmol/L Chloride 111 H (96-108) mmol/L Carbon Dioxide 25 (22-29) mmol/L Anion Gap 12 (12-20) BUN 13 (9-16) mg/dL Creatinine 0.69 (0.5-1.4) mg/dL Estim Creat Clear Calc 103.6 Estimated GFR > 60 Random Glucose 63 (60-115) mg/dL Calcium 8.8 (8.4-10.2) mg/dL Troponin I High Sens < 2.7 (<3.5-35.0) ng/L Influenza Type A (PCR) NEGATIVE (Negative) Influenza Type B (PCR) NEGATIVE (Negative) RSV RNA Qual (PCR) NEGATIVE (Negative) SARS-CoV-2 RNA (RT-PCR) NEGATIVE (Negative) Independent Interpretation I performed an independent interpretation of an: EKG and Plain X-Ray Interpretation: EKG showing normal sinus rhythm, rate of 74 beats per minute, no acute ischemic changes or ST elevations. Chest x-ray without infiltrate or consolidation Radiology Impression Discussion of test interpretation with radiology: I have reviewed the radiologist's reading. Radiologist Impression: Date of Service: 03/19/25 Procedure(s): ECG 12 lead EKG Accession Number(s): [id number] cc: ~ Test Reason : chest pain Blood Pressure : */* mmHG Vent. Rate : 74 BPM Atrial Rate : 74 BPM P-R Int : 148 ms QRS Dur : 80 ms QT Int : 380 ms P-R-T Axes : 86 69 72 degrees QTcB Int : 421 ms Normal sinus rhythm Normal ECG When compared with ECG of 08-Jan-2025 03:01, No significant change was found Date of Service: 03/19/25 Procedure(s): XR chest 2V Accession Number(s): [id number] cc: Physician,Unknown ; Lacy Jackson~ CLINICAL HISTORY: sob 2 view chest x-ray. Comparison: None Findings: The lungs are adequately expanded. No focal consolidation. No effusion or pneumothorax. Cardiac and mediastinal contours are within normal limits. No acute osseous abnormality Impression: No acute process. This document has been electronically signed by: Trevin Castañeda MD on 03/19/2025 12:25:21 Independent Historian Clinical information obtained from an independent historian. History obtained from or confirmed by: Spouse and EMS External Record Review External record reviewed: Inpatient record Prescription Management I considered prescription management with: Antibiotic (azithromycin) and Other (prednisone) Chronic Conditions Patient?s care impacted by: Other (Asthma) Social Determinants Patient?s care significantly limited by Social Determinants of Health including: Other Social Determinant of Health Critical Care Time Critical Care Time Critical Care Time: No Discharge Plan Discharge Clinical Impression: Asthma with exacerbation Patient Disposition: Home, Self-Care Instructions: Asthma (ED) Additional Instructions: You were evaluated in the ED today for shortness of breath. Your blood work is reassuring. You tested negative for covid, flu, rsv. Your chest xray does not demonstrate pneumonia. You do not meet criteria for inpatient management. I am sending you home with a course of steroids (prednisone). Take this as prescribed over the next 5 days. I am also ending you home with an antibiotic (azithromycin). Take this as prescribed over the next 5 days. Return with any new or worsening symptoms. In the case of an emergency call 911. Prescriptions: New prednisone 20 mg tablet 40 mg PO DAILY 5 Days Qty: 10 0RF azithromycin 250 mg tablet See Rx Instructions .ROUTE .COMPLEX Qty: 6 0RF Rx Instructions: For 250 mg dose pack: take 500 mg today (day 1), then 250 mg for 4 days (days 2-5) albuterol sulfate 1.25 mg/3 mL solution for nebulization 1.25 mg inhalation Q4-6H PRN (Reason: shortness of breath or wheezing) Qty: 75 0RF No Action amoxicillin 500 mg capsule 1,000 mg PO BID 5 Days Qty: 20 0RF albuterol sulfate 2.5 mg /3 mL (0.083 %) solution for nebulization 2.5 mg inhalation Q4-6H PRN (Reason: shortness of breath or wheezing) Qty: 75 0RF prednisone 20 mg tablet 60 mg PO DAILY 5 Days Qty: 15 0RF albuterol sulfate 90 mcg/actuation HFA aerosol inhaler 2 puff inhalation Q4-6H PRN (Reason: shortness of breath or wheezing) Qty: 8.5 0RF cephalexin 500 mg capsule 500 mg PO QID 7 Days Qty: 28 0RF doxycycline hyclate 100 mg capsule 100 mg PO BID 7 Days Qty: 14 0RF ipratropium-albuterol 0.5 mg-3 mg(2.5 mg base)/3 mL Solution For Nebulization 3 ml inhalation RQ4H WHILE AWAKE Qty: 90 0RF nicotine 7 mg/24 hr Patch 24 Hour 7 mg transdermal DAILY Qty: 7 0RF prednisone 10 mg tablet See Taper PO DIRECTED Qty: 20 0RF Taper: Prednisone 40 mg daily for 2 Days and 0 Hour 30 mg daily for 2 Days and 0 Hour 20 mg daily for 2 Days and 0 Hour 10 mg daily for 2 Days and 0 Hour Rx Instructions: see taper instructions albuterol sulfate [Ventolin HFA] 90 mcg/actuation HFA aerosol inhaler 2 puff inhalation Q4-6H PRN (Reason: shortness of breath or wheezing) Qty: 8.5 0RF prednisone 20 mg tablet 40 mg PO DAILY 4 Days Qty: 8 0RF albuterol sulfate 90 mcg/actuation HFA aerosol inhaler 2 puff inhalation .q20 minutes PRN (Reason: shortness of breath or wheezing) Qty: 8.5 0RF penicillin V potassium 500 mg tablet 500 mg PO BID 10 Days Qty: 20 0RF Cepacol Sore Throat (alisha-men) 15-2.6 mg lozenge 1 andrew mucous membrane Q2-4H PRN (Reason: sore throat) Qty: 16 0RF cyclobenzaprine 10 mg tablet 10 mg PO TID PRN (Reason: muscle spasm) Qty: 14 0RF prednisone 20 mg tablet 40 mg PO DAILY 5 Days Qty: 10 0RF lidocaine [AsperFlex (lidocaine)] 4 % adhesive patch,medicated 1 patch topical DAILY PRN (Reason: pain) Qty: 30 0RF acetaminophen [Tylenol Extra Strength] 500 mg tablet 500 - 1,000 mg PO Q6H PRN (Reason: pain) Qty: 30 0RF prednisone 20 mg tablet 40 mg PO DAILY Qty: 10 0RF Referrals: Physician,Unknown J [Primary Care Provider, Medical] Print Language: Nigerian
[2025-03-19 11:37] LABS: MANUAL DIFF FLAG NO
[2025-03-19 11:38] LABS: Hematocrit 37.9 % (42.0-52.0); Hemoglobin 12.5 g/dl (14.0-18.0); Imm Gran Abs Auto 0.01 X10*3/uL (0.00-0.03); Imm Gran Pct Auto 0.2 % (0.0-0.4); Lymphocytes Absolute Auto 1.7 X10*3/uL (1.2-4.9); Mean Corpuscular HGB Conc 33.0 g/dl (31.0-36.0); Mean Corpuscular Hemoglobin 31.3 pg (27.0-33.0); Mean Corpuscular Volume 95.0 fL (80.0-98.0); NRBC Abs Auto 0.000 X10*3/uL (0.0-0.012); NRBC Pct Auto 0.0 /100WBC (0.0-0.2); Platelet Count 297 X10*3/uL (160-400); Red Blood Count 3.99 X10*6/uL (4.60-5.80); White Blood Count 5.8 X10*3/uL (4.8-10.8)
[2025-03-19 12:02] LABS: Troponin-I High Sensitivity < 2.7 ng/L (<3.5-35.0)
[2025-03-19 12:15] LABS: Resp Syncy Virus RNA Qual PCR NEGATIVE (Negative); SARS COV2 PCR INHOUSE NEGATIVE (Negative)
[2025-03-19 12:29] VITALS: PULSE 74; RESP 13; O2SAT 96
[2025-03-19 12:31] LABS: Anion Gap 12 (12-20); Blood Urea Nitrogen 13 mg/dL (9-16); Calcium 8.8 mg/dL (8.4-10.2); Carbon Dioxide 25 mmol/L (22-29); Chloride 111 mmol/L (96-108); Creatinine Clr Calc Pharmacy 103.6; Estimated Glomerular Filt Rate > 60; Potassium 3.9 mmol/L (3.3-5.1); Sodium 144 mmol/L (135-145)
[2025-03-19] MEDS: Albuterol Sulfate 2.5 MG, Albuterol/Iprat 2.5/0.5MG 3 ML 3 ML INHALE (12:35)
--- NOTE | 2025-03-19 12:45 | PC.NURSE ---
Respiratory @ bedside administering tx
[2025-03-19] MEDS: Magnesium Sulfate/H2O 2 GM/50 ML PIGGYBACK IV (13:22)
[2025-03-19 14:04] VITALS: O2SAT 95
--- NOTE | 2025-03-19 14:04 | PC.NURSE ---
Pt ambulates w/steady gait down hallway, SPO2 remains 95%l, but pt c/o increased SOB. PA aware.
[2025-03-19 14:08] VITALS: BP 123/69; PULSE 65; RESP 11; TEMP 36.4; O2SAT 95
[2025-03-19 14:21] LABS: Appearance Urine Turbid; Glucose Urine UA Negative (Negative); PH 8.5 (5.0-9.0); Specific Gravity - Urine 1.020 (1.005-1.025)
[2025-03-19 14:43] VITALS: BP 123/66; PULSE 67; RESP 16; TEMP 36.4; O2SAT 97
== END 2025-03-19 14:44 | disposition home or self-care (01) ==
PROVIDERS: Physician Assistant Medical; Emergency Provider Emergency Medicine
DX: J45.901 Unspecified asthma with (acute) exacerbation (principal); R06.02 Shortness of breath
CPT/HCPCS: 71046; 80048; 81003; 84484; 85025; 87637; 93005; 94640; 96365; 96375; 99284; 99285; J2919; J3475

== ENCOUNTER → 2025-03-19 11:14 | Outpatient (BNV) | payer MEDICAID, SELFPAY | PROVIDERS: Emergency Provider Emergency Medicine; Visit Provider Internal Medicine Cardiovascular Disease | DX: R07.89 Other chest pain (principal) | CPT/HCPCS: 93010 ==

== ENCOUNTER → 2025-03-19 11:41 | Outpatient (BNV) | payer MEDICAID, SELFPAY | PROVIDERS: Emergency Provider Emergency Medicine; Visit Provider Radiology Vascular & Interventional Radiology | DX: R06.02 Shortness of breath (principal) | CPT/HCPCS: 71046 ==

== ENCOUNTER 2025-05-30 08:35 | Outpatient (REF) | payer MEDICAID, SELFPAY ==
--- OUTSIDE RECORDS SUMMARY | 2025-05-30 09:45 | XMS_ITS | Clinical Summary ---
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 nicotine polacrilex (Nicorette) 4 MG gumIndications: Tobacco use CHEW 1 PIECE OF GUM EVERY 2 HOURS NEEDED FOR SMOKING CESSATION 100 each 09/09/20 24 Active omeprazole (PriLOSEC) [address] capsule TAKE 1 TABLET BY MOUTH AT BEDTIME 90 capsule 1 09/09/20 24 Active meloxicam (Mobic) 15 MG tabletIndicatio ns:Chronic bilateral low back pain without sciatica Take 1 tab once daily with food if needed for back pain, do not take ibuprofen or naprosyn with this medication 30 tablet 2 02/12/20 25 Active cyclobenzaprine (Flexeril) 10 MG tabletIndicatio ns:Chronic bilateral low back pain without sciatica Take 1 tablet (10 mg) by mouth 3 times daily for 10 days. 30 tablet 2 02/12/20 25 Active albuterol (2.5 MG/3ML) 0.083% nebulizer solutionIndicat ions:Asthma, unspecified asthma severity, unspecified whether complicated, unspecified whether persistent INHALE 1 VIAL VIA NEBULIZER EVERY 8 HOURS NEEDED FOR WHEEZE/SHORTN ESS OF BREATH 75 mL 03/21/20 25 Active cetirizine (ZyrTEC) 10 MG tabletIndicatio ns:Seasonal allergic rhinitis due to pollen TAKE 1 TABLET (10 MG) BY MOUTH ONCE PER DAY. 90 tablet 04/25/20 25 Active fluticasone (Flonase) 50 MCG/ACT nasal sprayIndication s:Seasonal allergic rhinitis due to pollen Use 1 spray each nostril daily. Shake gently. Before first use, prime pump. After use, clean tip and replace cap. 48 mL 04/26/20 25 Active fluticasone furoate (Arnuity Ellipta) 100 MCG/ACT inhalerIndicati ons:Moderate persistent asthma with acute exacerbation Inhale 1 puff Once per day. Rinse mouth with water after use to reduce aftertaste and incidence of candidiasis. Do not swallow. 1 each 05/07/20 25 026 Active albuterol 108 (90 Base) MCG/ACT inhalerIndicati ons:Moderate persistent asthma without complication Inhale 2 puffs every 6 (six) hours if needed for wheezing. 18 g 2 05/18/20 25 026 Active sildenafil (Viagra) 25 MG tabletIndicatio ns:Erectile dysfunction, unspecified erectile dysfunction type Take 1 tablet (25 mg) by mouth if needed each day for erectile dysfunction. 10 tablet 1 05/18/20 25 025 Active albuterol 108 (90 Base) MCG/ACT inhalerIndicati ons:Asthma, unspecified asthma severity, unspecified whether complicated, unspecified whether persistent Inhale 2 puffs every 6 (six) hours if needed for wheezing. 18 g 02/12/20 25 025 Discontinued(R eorder (will not trigger notification to Pharmacy)) fluticasone furoate (Arnuity Ellipta) 100 MCG/ACT inhalerIndicati ons:Moderate persistent asthma without complication Inhale 1 puff Once per day. Rinse mouth with water after use to reduce aftertaste and incidence of candidiasis. Do not swallow. 1 each 02/12/20 25 025 Discontinued(R eorder (will not trigger notification to Pharmacy)) sildenafil (Viagra) 25 MG tabletIndicatio ns:Erectile dysfunction, unspecified erectile dysfunction type Take 1 tablet (25 mg) by mouth if needed each day for erectile dysfunction. 10 tablet 02/12/20 25 025 Discontinued(R eorder (will not trigger notification to Pharmacy)) albuterol 108 (90 Base) MCG/ACT inhalerIndicati ons:Moderate persistent asthma with acute exacerbation Inhale 2 puffs every 6 (six) hours if needed for wheezing. 18 g 11 05/07/20 25 025 Discontinued(R eorder (will not trigger notification to Pharmacy)) predniSONE (Deltasone) 20 MG tabletIndicatio ns:Moderate persistent asthma with acute exacerbation Take 2 tablets (40 mg) by mouth Once per day for 5 days. 10 tablet 05/07/20 25 025 predniSONE (Deltasone) 20 MG tabletIndicatio ns:Moderate persistent asthma without complication Take 2 tablets (40 mg) by mouth Once per day for 5 days. 10 tablet 05/18/20 25 025 Active Problems Problem Noted Date Diagnosed Date Depression with anxiety 05/18/2025 Assessment & Plan (05/18/2025 4:35 PM EDT): Counseling done today I referred patient to behavioral health Erectile dysfunction 02/11/2025 Assessment & Plan (05/18/2025 4:35 PM EDT): I refilled his sildenafil Sciatica of left side 10/08/2024 Assessment & Plan (10/08/2024 1:07 PM EST): Toradol 30mg injection today. Can repeat dose daily X 3 doses next week. Continue Meloxicam 15mg for one week and after use only PRN. Tylenol and Flexeril PRN. Recommended he does stretching exercises. Laceration of dorsum of hand 10/08/2024 Assessment & Plan (10/08/2024 1:09 PM EST): Resolved. Complete the antibiotic treatment, TD UTD. Health care maintenance 10/07/2023 Chronic bilateral low back pain without sciatica 10/07/2023 Assessment & Plan (05/18/2025 4:35 PM EDT): I refer patient into physical therapy Assessment & Plan (02/11/2025 3:26 PM EDT): I printed his referral to physical therapy and also to pain management I refilled his prescription for meloxicam and Flexeril Assessment & Plan (11/04/2023 3:27 PM EST): Apply heat on affected area PT referral will be mail again to patient Assessment & Plan (10/07/2023 4:34 PM EST): Apply heat on affected area PT referral Moderate persistent asthma without complication 04/28/2023 Assessment & Plan (05/18/2025 4:36 PM EDT): I refilled his albuterol inhaler I put a 5-day supply of prednisone in case he has an acute exacerbation during his trip, I let him know this is only a one-time prescription if he has recurring or persistent symptoms of asthma he will have to be seen Assessment & Plan (02/11/2025 3:25 PM EDT): Patient was educated to avoid triggers I prescribed albuterol inhaler I start him on Arnuity Ellipta daily Assessment & Plan (04/22/2024 11:47 AM EDT): Patient here as a walk in with c/o increasing sob, associated with smoking and a recent new job that exposes him to dust. Ran out of his inhalers Patient has a hx of previous ER visits and a hospitalization due to asthma exacerbations Today mild wheezing on exam Plan: prednisone course for 5 days and refill Flovent, albuterol inhaler and nebs Assessment & Plan (03/17/2024 2:33 PM EDT): -hx of previous ER visits and a hospitalization due to asthma exacerbation -no wheezing on exam, but slight prolonged expiration -will prescribe prednisone course for 5 days and refill albuterol Assessment & Plan (11/04/2023 3:26 PM EST): Patient educated to avoid asthma triggers C/w albuterol PRN Assessment & Plan (10/07/2023 4:33 PM EST): C/w albuterol PRN and flovent BID Patient educated to avoid asthma triggers Tobacco use 04/28/2023 Assessment & Plan (10/07/2023 4:34 PM EST): Counseling for smoking cessation done Cocaine abuse 04/28/2023 Resolved Problems Problem Noted Date Diagnosed Date Resolved Date Diminished vision 02/11/2025 03/22/2025 Encounters * This document contains information received from the source organization and may not represent a complete record from that organization. Date Type Department Care Team Description 05/19/2025 Refill [facility] [address] [place] [phone] Angeline Davies MD Erectile dysfunction, unspecified erectile dysfunction type 05/18/2025 2:45 PM EDT Office Visit [facility] [address] [place] [phone] Angeline Davies MD Chronic bilateral low back pain without sciatica; Moderate persistent asthma without complication; Depression with anxiety; Erectile dysfunction, unspecified erectile dysfunction type 05/18/2025 Travel 05/11/2025 Patient Outreach [facility] [address] [place] [phone] Angeline Davies MD Pre-visit Planning (SDOH screening completed on 10/08/2024) 05/07/2025 10:40 AM EDT Office Visit [facility] WALK-IN CENTER [address] [place] [phone] Dandy Laurent MD Moderate persistent asthma with acute exacerbation 05/07/2025 Travel 04/25/2025 Refill [facility] [address] [place] [phone] Angeline Davies MD Seasonal allergic rhinitis due to pollen 04/25/2025 Refill [facility] [address] [place] [phone] Dandy Laurent MD Seasonal allergic rhinitis due to pollen 04/22/2025 Outside Procedure [facility] OPTOMETRY [address] [place] [address] Sony Belln, OD Presbyopia (Primary Dx) 04/20/2025 10:00 AM EDT Office Visit [facility] OPTOMETRY [address] [place] [address] Sony Belln, OD Hyperopia of both eyes (Primary Dx) 04/20/2025 Travel 03/22/2025 1:00 PM EDT Office Visit [facility] OPTOMETRY [address] [place] [address] Jourdanbev Yue, OD Presbyopia (Primary Dx); Anatomical narrow angle of both eyes; Combined forms of age-related cataract of both eyes 03/22/2025 Travel 03/19/2025 Orders Only GENERIC EXTERNAL DATA DEPARTMENT Provider, Generic External Data 03/18/2025 Refill [facility] WALK-IN [facility] [address] [place] [address] Angeline Davies MD Asthma, unspecified asthma severity, unspecified whether complicated, unspecified whether persistent from Last 3 Months Immunizations Immunization Administration Dates Next Due Pneumococcal Conjugate PCV 20 02/11/2025 Tdap 10/02/2024 Social History Tobacco Use Types Packs/Day Years Used Date Smoking Tobacco: Some Days Cigarettes Passive Smoke Exposure: Past Smokeless Tobacco: Never Tobacco Cessation:Ready to Q uit: Not Asked; Counseling Given: Not Answered Alcohol Use Standard Drinks/Week Comments Never 0 (1 standard drink = 0.6 oz pur e alcohol) Depression Answer Date Recorded Patient Health Questionnaire-9 Score 6 10/08/2024 Patient Health Questionnaire-9 Score 6 10/08/2024 Last PHQ-9: Questionnaire Data Not on file 0 10/08/2024 Housing Stability Answer Date Recorded What is your housing situation today? I have juan francisco qureshi 10/08/[address] you li ve. Do you have problems with any of the following? None of the above 10/08/2024 Food Insecurity Answer Date Recorded Within the past 12 months, y ou worried that your food would run out before you got money to buy more: Sometimes True 2024 Within the past 12 months,th e food you bought just didn't last and you didn't have enough money to get more: Sometimes True 10/08/2024 Transportation Answer Date Recorded In the past 12 months, has l ack of transportation kept you from medical appts, meetings, work or from getting things needed for daily living? No 10/08/2024 Utilities Answer Date Recorded In the past 12 months, has t he electric, gas, oil or water company threatened to shut off services in your home? No 10/08/2024 Depression Answer Date Recorded Patient Health Questionnaire-2 Score 1 10/08/2024 Internet Access Answer Date Recorded Internet Access Q1 Yes 10/08/2024 Internet Access Q2 Not on file 10/08/2024 Sex and Gender Information Value Date Recorded Sex Assigned at Male 04/28/2023 12:57 PM EDT Legal Sex Male 2:51 PM EDT Gender Identity Male 04/28/2023 12:57 PM EDT Sexual Orientation Don't know 04/28/2023 12 :57 PM EDT Last Filed Vital Signs Vital Sign Reading Time Taken Comments Blood Pressure 124/62 05/18/2025 2:31 PM EDT Pulse 100 05/18/2025 2:31 PM EDT Temperature 37 C (98.6 F) 05/18/2025 2:31 PM EDT Respiratory Rate 20 05/18/2025 2:31 PM EDT Oxygen Saturation 94% 05/07/2025 10:16 AM EDT Inhaled Oxygen Concentration - - Weight 62 kg (136 lb 9.6 oz) 05/18/2025 2:31 PM EDT Height 165.1 cm (5' 5 ) 05/18/2025 2:31 PM EDT Body Mass Index 22.73 05/18/2025 2:31 PM EDT Plan of Treatment Health Maintenance Due Date Last Done Comments CT Colonography 1971 Colonoscopy 1971 Colorectal Cancer Screening 1971 FIT DNA/Cologuard 1971 FIT 1971 FOBT 1971 Lipid Panel 1971 Sigmoidoscopy 1971 Hepatitis B Vaccines (1 of 3 - 19+ 3-dose series) 1990 Zoster Vaccines (1 of 2) 2021 COVID-19 Vaccine (1 - 2023-2 5 season) 2025 Influenza Vaccine (#1) 2025 Depression Screening 10/08/2025 10/08/2024, 10/08/2024 SDOH Screening 10/08/2025 10/08/2024 Alcohol/Substance Use Screening 02/11/2026 02/11/2025 Disability Screening 02/11/2026 02/11/2025 Tobacco Screening 05/07/2026 05/07/2025 DTaP/Tdap/Td Vaccines (2 - T d or Tdap) 10/02/2034 10/02/2024 RSV Patients and Patients Aged 60 years or older (1 - 1-dose 75+ series) 2046 HIV Screening Completed 10/13/2023 Hepatitis C Screening Completed 12/17/2023 , 10/13/2023 Pneumococcal Vaccine: 50+ Years Completed 02/11/2025 HIB Vaccines Aged Out No longer eligi ble based on patient's age to complete this topic HPV Vaccines Aged Out No longer eligi ble based on patient's age to complete this topic Hepatitis A Vaccines Aged Out No long er eligible based on patient's age to complete this topic IPV Vaccines Aged Out No longer eligi ble based on patient's age to complete this topic Meningococcal B Vaccine Aged Out No l onger eligible based on patient's age to complete this topic Meningococcal Vaccine Aged Out No saul rajinder eligible based on patient's age to complete this topic RSV under 20 months Aged Out No longe r eligible based on patient's age to complete this topic Rotavirus Vaccines Aged Out No longer eligible based on patient's age to complete this topic Procedures Procedure Name Priority Date/Time Associated Diagnosis Comments CBC WITH AUTO DIFFERENTIAL Routine 03/19/2025 11:25 AM EDT HEPATITIS PANEL, GENERAL Routine 12/17/2023 11:38 AM EDT Abdominal pain in male HIV 1/2 ANTIGEN/ANTIBODY, FOURTH GENERATION W/RFL Routine 10/13/2023 9:48 AM EST Health care maintenance from Last 3 Months or Most Recently Relevant to Health Maintenance Results * (ABNORMAL) CBC auto differential (03/19/2025 11:25 AM EDT) White Blood Count 5.8 4.8 - 10.8 X10*3/uL [facility] Red Blood Count 3.99(L) 4.60 - 5.80 X10*6/uL [facility] Hemoglobin 12.5(L) 14.0 - 18.0 g/dl [facility] Hematocrit 37.9(L) 42.0 - 52.0 % [facility] Mean Corpuscular Volume 95.0 80.0 - 98.0 fL [facility] Mean Corpuscular Hemoglobin 31.3 27.0 - 33.0 pg [facility] Mean Corpuscular HGB Conc 33.0 31.0 - 36.0 g/dl [facility] Red Cell Distribution Width 13.1 11.0 - 16.0 % [facility] Platelet Count 297 160 - 400 X10*3/uL [facility] Mean Platelet Volume 9.0(L) 9.4 - 12.4 fL [facility] Neutrophils Percent Auto 56.8 45 - 73 % [facility] Imm Gran Pct Auto 0.2 0.0 - 0.4 % [facility] Lymphocytes Percent Auto 28.7 20 - 40 % [facility] Monocytes Percent Auto 8.2 2 - 11 % [facility] Eosinophils Percent Auto 5.4(H) 0 - 4 % [facility] Basophils Percent Auto 0.7 0 - 2 % [facility] NRBC Pct Auto 0.0 0.0 - 0.2 /100WBC [facility] Neutrophils Absolute Auto 3.3 2.0 - 8.3 x10*3/uL [facility] Imm Gran Abs Auto 0.01 0.00 - 0.03 X10*3/uL [facility] Lymphocytes Absolute Auto 1.7 1.2 - 4.9 X10*3/uL [facility] Monocytes Absolute Auto 0.5 0.1 - 1.2 X10*3/uL [facility] Eosinophils Absolute Auto 0.3 0.0 - 0.4 X10*3/uL [facility] Basophils Absolute Auto 0.0 0.0 - 0.2 X10*3/uL [facility] NRBC Abs Auto 0.000 0.0 - 0.012 X10*3/uL [facility] 03/19/2025 11:2 5 AM EDT 03/19/2025 11:36 AM EDT us Generic External Data Provider LAB BLOOD ORDERAB LES Final Result Performing Organization Address [facility] Co de Phone Number [facility] [address] [place] [address] [phone] * Hepatitis Panel, General (12/17/2023 11:38 AM EDT) Hepatitis A IgM Nonreactive Nonreactive [facility] Comment:IgM antibodies to JEAN V not detected; does not exclude earlyacute or recovered HAV infection. ~Hepatitis B Surface Antibody NONREACTIVE Nonreactive [facility] Comment:Nonreactive: < 8.00 mIU/mL Hepatitis B Core Antibody Nonreactive Nonreactive [facility] Hepatitis C Antibody Nonreactive Nonreactive [facility] Comment:Antibodies to HCV no t detected; does not exclude early acuteHCV infection. Hepatitis B Surface Ag Negative Negative [facility] Blood 12/17/2023 11:3 8 AM EDT 12/17/2023 1:18 PM EDT Juany Benjamin FORESTRY FIRE AIDE LAB BLOOD ORDERABLES Final Res ult Performing Organization Address [facility] Co de Phone Number [facility] [address] [place] [address] [phone] * HIV-1/2 Antigen and Antibodies, Fourth Generation, with Reflexes (10/13/2023 9:48 AM EST) HIV AB/AG Nonreactive Nonreactive [facility] Comment:HIV-1 p24 Ag and/or HIV-1/HIV-2 Ab not detected.A test result that is nonreactive does not exclude thepossibility of exposure to or infection with HIV-1 and/orHIV-2. Nonreactive results in this assay for individualswith prior exposure to HIV-1 and/or HIV-2 may be due toantigen and antibody levels that are below the limit ofdetection of this assay.The [email or web address] HIV Ag/Ab Combo assay result andsupplemental assay results should be interpreted inconjunction with the patient's clinical presentation,history and other laboratory results. If the results areinconsistent with clinical evidence, additional testing issuggested to confirm the result. 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
--- OUTSIDE RECORDS SUMMARY | 2025-05-30 09:45 | XMS_ITS | Encounter Summary ---
Author Organization [employer] Address [address] [facility] [address] [place] [address] Care Team Providers Care Information Assurance Specialist Name Role Phone Angeline aDvies MD Primary Care Provide r Reason for Visit * Reason Onset Date Comments Med Refill 09/09/2024 Encounter Details Date Type Department Care Team (Late st Contact Info) Description 09/09/[address] [facility] MEDICINE [address] [place], [place] [phone] Angeline Davies MD [address] [place], [place] [phone] Med Refill Social History Tobacco Use Types Packs/Day Years Used Date Smoking Tobacco: Every Day Cigarettes Passive Smoke Exposure: Current Smokeless Tobacco: Never Depression Answer Date Recorded Patient Health Questionnaire-9 Score 0 10/07/2023 Patient Health Questionnaire-9 Score 0 10/07/2023 Last PHQ-9: Questionnaire Data Not on file 0 10/07/2023 Housing Stability Answer Date Recorded What is your housing situation today? I have juan francisco kiera 09/25/[address] you li ve. Do you have problems with any of the following? None of the above 09/25/2023 Food Insecurity Answer Date Recorded Within the past 12 months, y ou worried that your food would run out before you got money to buy more: Never True 09/25/2023 Within the past 12 months,th e food you bought just didn't last and you didn't have enough money to get more: Never True 07/2024 Transportation Answer Date Recorded In the past 12 months, has l ack of transportation kept you from medical appts, meetings, work or from getting things needed for daily living? No 09/25/2023 Utilities Answer Date Recorded In the past 12 months, has t he electric, gas, oil or water company threatened to shut off services in your home? No 09/25/2023 Depression Answer Date Recorded Patient Health Questionnaire-2 Score 0 10/07/2023 Sex and Gender Information Value Date Recorded Sex Assigned at Male 04/28/2023 12:57 PM EDT Legal Sex Male 2:51 PM EDT Gender Identity Male 04/28/2023 12:57 PM EDT Sexual Orientation Don't know 04/28/2023 12 :57 PM EDT documented as of this encounter Miscellaneous Notes * Telephone Encounter - Dannielle Kay LPN - 09/09/2024 1:04 PM EST Medication pended to PCP. * Telephone Encounter - Tyson Stanton - 09/09/2024 12:46 PM EST TC from pt requesting medication refill. Medications needing refill : albuterol (2.5 MG/3ML) 0.083% nebulizer solution nicotine polacrilex (Nicorette) 4 MG gum omeprazole (PriLOSEC) [address] capsule predniSONE (Deltasone) 20 MG tablet To be sent to: [facility]/pharmacy #[id number] [place] [address] documented in this encounter Plan of Treatment Not on file documented as of this encounter Visit Diagnoses Not on filedocumented in this encounter Additional Health Concerns Assessment Noted Time PHQ-9 Depression Total Score: 0 10/07/19 10:17 AM EST documented as of this encounter Care Teams Information Assurance Specialist Relationship Specialty Start Date End Date Angeline Davies MD [address] [place] [phone] PCP - General Internal Medicine 10/07/23 documented as of this encounter
--- OUTSIDE RECORDS SUMMARY | 2025-05-30 09:45 | XMS_ITS | Encounter Summary ---
Author Organization [employer] Address [address] [place] [address] Care Team Providers Care Fulfillment Associate Name Role Phone Angeline Davies MD Primary Care Provide r Reason for Visit * Reason Comments Med Refill Encounter Details Date Type Department Care Team (Late st Contact Info) Description 05/19/2025 Refill [facility] [address] [place], [place] [phone] Angeline Davies MD [address] [place], [place] [phone] Erectile dysfunction, unspecified erectile dysfunction type Social History Tobacco Use Types Packs/Day Years Used Date Smoking Tobacco: Some Days Cigarettes Passive Smoke Exposure: Past Smokeless Tobacco: Never Alcohol Use Standard Drinks/Week Comments Never 0 [...] PM EDT documented as of this encounter Plan of Treatment Not on file documented as of this encounter Visit Diagnoses Diagnosis Erectile dysfunction, unspecified erectile dysfunction type documented in this encounter Additional Health Concerns Assessment Noted Time PHQ-9 Depression Total Score: 6 10/08/19 25 9:35 AM EST documented as of this encounter Care Teams Fulfillment Associate Relationship Specialty Start Date End Date Angeline Davies MD [address] [place] [phone] PCP - General Internal Medicine 10/07/23 documented as of this encounter
[2025-05-30 11:16] LABS: MANUAL DIFF FLAG NO
[2025-05-30 11:19] LABS: Hematocrit 43.7 % (42.0-52.0); Hemoglobin 14.2 g/dl (14.0-18.0); Imm Gran Abs Auto 0.02 X10*3/uL (0.00-0.03); Imm Gran Pct Auto 0.3 % (0.0-0.4); Lymphocytes Absolute Auto 2.0 X10*3/uL (1.2-4.9); Mean Corpuscular HGB Conc 32.5 g/dl (31.0-36.0); Mean Corpuscular Hemoglobin 32.6 pg (27.0-33.0); Mean Corpuscular Volume 100.2 fL (80.0-98.0); NRBC Abs Auto 0.000 X10*3/uL (0.0-0.012); NRBC Pct Auto 0.0 /100WBC (0.0-0.2); Platelet Count 309 X10*3/uL (160-400); Red Blood Count 4.36 X10*6/uL (4.60-5.80); White Blood Count 6.3 X10*3/uL (4.8-10.8)
[2025-05-30 11:36] LABS: Hemoglobin A1C 117.3841 umol/L; Total Hemoglobin (HGBA1C) 3720.6217 umol/L
[2025-05-30 12:02] LABS: HIV Num 1 0.07 S/CO (0.00-0.99); ~HepC Num1 0.13 S/CO (0.00-0.79); ~Hepatitis C Antibody Nonreactive (Nonreactive)
[2025-05-30 12:04] LABS: Alanine Aminotransferase 19 U/L (0-40); Albumin Level 3.9 g/dL (3.5-5.0); Alkaline Phosphatase 64 U/L (39-117); Anion Gap 9 (12-20); Aspartate Amino Transferase 24 U/L (5-37); Blood Urea Nitrogen 16 mg/dL (9-16); Calcium 8.4 mg/dL (8.4-10.2); Carbon Dioxide 30 mmol/L (22-29); Chloride 107 mmol/L (96-108); Cholesterol 161 mg/dL (<200); Estimated Glomerular Filt Rate > 60; HDL Cholesterol 64 mg/dL (>40); Potassium 4.3 mmol/L (3.3-5.1); Sodium 142 mmol/L (135-145); Total Protein 6.4 g/dL (6.5-8.0); Triglycerides 66 mg/dL (<150)
== END 2025-05-30 08:36 | disposition home or self-care (01) ==
LOC: HO.HHCL 08:35
PROVIDERS: PCP Internal Medicine; Visit Provider Internal Medicine
DX: Z00.00 Encounter for general adult medical examination without abnormal findings (principal); N52.9 Male erectile dysfunction, unspecified; Z11.59 Encounter for screening for other viral diseases; Z11.4 Encounter for screening for human immunodeficiency virus [HIV]
CPT/HCPCS: 36415; 80053; 80061; 82306; 83036; 84403; 84443; 85025; 86803; 87389

== ENCOUNTER 2025-06-12 11:00 | Emergency (ER) | payer MEDICAID, SELFPAY ==
--- NOTE | ~2025-06-12 | XR_ITS ---
CLINICAL HISTORY: sob asthma hx 1 view chest x-ray Comparison: CR - XR CHEST 1V - 01/08/25 03:40 EDT CR/SR - XR CHEST 1V - 07/19/24 17:43 EST Findings: No consolidation or effusion. Normal size heart. No acute fracture. IMPRESSION: 1. No acute findings. This document has been electronically signed by: Aris Neri MD on 06/12/2025 11:46:52
[2025-06-12 11:06] VITALS: BP 134/85; BP 136/86; PULSE 89; PULSE 99; RESP 18; TEMP 36.9; O2SAT 95; O2SAT 96; BMI 22.1
[2025-06-12 11:13] VITALS: PULSE 90; RESP 22; O2SAT 96
[2025-06-12] MEDS: Albuterol Sulfate 2.5 MG, Albuterol/Iprat 2.5/0.5MG 3 ML 3 ML INHALE ×2 (11:13→11:52)
[2025-06-12 11:25] LABS: MANUAL DIFF FLAG NO
[2025-06-12 11:29] LABS: Hematocrit 45.8 % (42.0-52.0); Hemoglobin 15.6 g/dl (14.0-18.0); Imm Gran Abs Auto 0.01 X10*3/uL (0.00-0.03); Imm Gran Pct Auto 0.1 % (0.0-0.4); Lymphocytes Absolute Auto 1.4 X10*3/uL (1.2-4.9); Mean Corpuscular HGB Conc 34.1 g/dl (31.0-36.0); Mean Corpuscular Hemoglobin 32.8 pg (27.0-33.0); Mean Corpuscular Volume 96.4 fL (80.0-98.0); NRBC Abs Auto 0.000 X10*3/uL (0.0-0.012); NRBC Pct Auto 0.0 /100WBC (0.0-0.2); Platelet Count 334 X10*3/uL (160-400); Red Blood Count 4.75 X10*6/uL (4.60-5.80); White Blood Count 6.8 X10*3/uL (4.8-10.8)
[2025-06-12 11:49] LABS: COVID-19 Test Positive (Negative); IDNOW Serial# 58CA691E
[2025-06-12 11:50] LABS: IDNOW Serial# 55D5AD1C; Influenza B2 Negative (Negative)
[2025-06-12 11:51] LABS: Alanine Aminotransferase 20 U/L (0-40); Albumin Level 4.2 g/dL (3.5-5.0); Alkaline Phosphatase 76 U/L (39-117); Anion Gap 12 (12-20); Aspartate Amino Transferase 39 U/L (5-37); Blood Urea Nitrogen 11 mg/dL (9-16); Calcium 8.9 mg/dL (8.4-10.2); Carbon Dioxide 23 mmol/L (22-29); Chloride 110 mmol/L (96-108); Creatinine Clr Calc Pharmacy 126.4; Estimated Glomerular Filt Rate > 60; Potassium 4.1 mmol/L (3.3-5.1); Sodium 141 mmol/L (135-145); Total Protein 7.3 g/dL (6.5-8.0)
[2025-06-12 11:52] VITALS: PULSE 91; RESP 16; O2SAT 95
--- NOTE | 2025-06-12 11:53 | ED_ITS ---
HPI - SOB/Dyspnea General Chief Complaint: Dyspnea Stated Complaint: ASTHMA Time Seen by Provider: 06/12/25 11:02 Source: patient and EMS Mode of arrival: EMS Limitations: no limitations History of Present Illness ED Provider: ROSE Ramos HPI Narrative: 54-year-old male past medical history go of cocaine abuse , asthma presents with shortness of breath since yesterday, he reports typically his inhaler helps when he short of breath and wheezing however this time it did not. Reports using it 14 times today with little to no relief. He arrives speaking in short sentences and appears visibly uncomfortable. Denies recent illness, fevers, chills, chest pain, nausea, vomiting, abdominal pain, headache, vision changes, dizziness, weakness, cough. MD elicited complaint: shortness of breath and asthma attack Related Data Previous Rx's ?Medication ?Instructions ?Recorded albuterol sulfate 90 mcg/actuation 2 puff inhalation Q 4-6H PRN 07/14/23 aerosol inhaler (Ventolin HFA) shortness of breath or wheezing #8.5 grams ipratropium 0.5 mg-albuterol 3 mg 3 ml inhalation RQ4H WHILE AWAKE 07/14/23 (2.5 mg base)/3 mL nebulization #90 mL soln nicotine 7 mg/24 hr daily 7 mg transdermal DAILY #7 ea 07/14/23 transdermal patch prednisone 10 mg tablet See Taper PO DIRECTED #20 tabs 07/14/23 albuterol sulfate 2.5 mg/3 mL 2.5 mg (3 mL) inhalation Q4-6H PRN 12/29/23 (0.083 %) solution for nebulization shortness of breat h or wheezing #75 mL albuterol sulfate 90 mcg/actuation 2 puff inhalation Q 4-6H PRN 12/29/23 aerosol inhaler shortness of breath or wheez ing #8.5 grams amoxicillin 500 mg capsule 1,000 mg (2 x 500 mg) PO BI D 5 12/29/23 days #20 caps prednisone 20 mg tablet 60 mg (3 x 20 mg) PO DAILY 5 days 12/29/23 #15 tabs albuterol sulfate 90 mcg/actuation 2 puff inhalation . q20 minutes PRN 05/21/24 aerosol inhaler shortness of breath or wheez ing #8.5 grams benzocaine 15 mg-menthol 2.6 mg 1 andrew mucous membrane Q2-4H PRN 05/21/24 lozenges (Cepacol Sore Throat sore throat #16 ea (benzocaine-menthol)) penicillin V potassium 500 mg 500 mg PO BID 10 days #2 0 tabs 05/21/24 tablet prednisone 20 mg tablet 40 mg (2 x 20 mg) PO DAILY 4 days 05/21/24 #8 tabs acetaminophen 500 mg tablet 500 - 1,000 mg (1 - 2 x 50 0 mg) PO 09/25/24 (Tylenol Extra Strength) Q6H PRN pain #30 tabs cyclobenzaprine 10 mg tablet 10 mg PO TID PRN muscle s pasm #14 09/25/24 tabs lidocaine 4 % topical patch 1 patch topical DAILY PRN pain #30 09/25/24 (AsperFlex (lidocaine)) ea prednisone 20 mg tablet 40 mg (2 x 20 mg) PO DAILY 5 days 09/25/24 #10 tabs cephalexin 500 mg capsule 500 mg PO QID 7 days #28 cap s 10/02/24 doxycycline hyclate 100 mg capsule 100 mg PO BID 7 day s #14 caps 10/02/24 prednisone 20 mg tablet 40 mg (2 x 20 mg) PO DAILY # 10 tabs 01/08/25 albuterol sulfate 1.25 mg/3 mL 1.25 mg (3 mL) inhalati on Q4-6H 03/19/25 solution for nebulization PRN shortness of breath or wheezing #75 mL azithromycin 250 mg tablet See Rx Instructions PO .COM PLEX #6 03/19/25 tabs prednisone 20 mg tablet 40 mg (2 x 20 mg) PO DAILY 5 days 03/19/25 #10 tabs albuterol sulfate 90 mcg/actuation 2 inh inhalation Q4 -6H PRN 06/12/25 breath activated powder inhaler shortness of breath or wheezing #1 ea prednisone 20 mg tablet 40 mg (2 x 20 mg) PO DAILY 5 days 06/12/25 #10 tabs Allergies Allergy/AdvReac Type Severity Reaction Status Date / Time No Known Allergies (No Known Allergy Verified 06/12/25 11:13 Allergies*) Review of Systems 2 Review of Systems: Yes all other systems are reviewed and are negative PMFSH Past Medical History Attestation statement: The following information was validated with the patient. Source: old records reviewed and nursing notes reviewed Medical History Cocaine abuse Asthma Social History Social History Alcohol intake: former Patient Tobacco Use Status: Current everyday Tobacco user Tobacco use type: Cigarette Smoked in Last 30 Days: No Second Hand Smoke Exposure: No Use of substances other than those prescribed or required for medical reasons: No Substance Use Type: Marijuana Advance Directives: No Advance Directives Information Provided: No service: No Physical Exam 2 Exam: Exam: Appearance: Alert.? Oriented X3.? + mild acute distress.? Head: Normocephalic, atraumatic, no step-offs or deformities Eyes: Pupils equal, round and reactive to light.? ENT: Pharynx normal.? Neck: Normal inspection.? Neck supple.? CVS: Normal heart rate and rhythm.? Pulses normal.? Respiratory: + mild respiratory distress.? Breath sounds diminished bilaterally with expiratory wheezing..? Abdomen: Soft and nontender.? Skin: Skin warm and dry.? Normal skin color.? Normal skin turgor.? Extremities: No lower extremity edema.? No calf ttp. 5/5 strength to bilateral upper and lower extremities Back: No midline tenderness, no C-spine tenderness, full range of motion, no CVA tenderness bilaterally Neuro: Oriented X 3.? No motor deficit.? No sensory deficit. CN 2-12 intact Vital Signs: Vital Signs: Last Vital Signs Temp 98.4 F 06/12/25 11:06 Pulse 91 06/12/25 11:52 Resp 16 06/12/25 11:52 BP 134/85 06/12/25 11:06 Pulse Ox 96 06/12/25 11:06 O2 Del Method Room Air 06/12/25 11:06 BMI result Body Mass Index 22.1 vss Course Reevaluation(s) Reevaluation #1: CBC unremarkable. Chemistry no acute findings meeting intervention. T bili 1.7, no abdominal tenderness on palpation. Will have him follow up with PCP with this abnormal finding. I do not suspect acute intra-abdominal etiology such as choledocholithiasis, cholangitis, cholecystitis, biliary obstruction. It could also be elevated in the setting of viral illness as patient is positive for COVID-19. Patient receiving Mag and Solu-Medrol. Breath sounds improving after multiple treatments. I will likely discharge this patient home with oral steroids and albuterol inhaler. Time: 11:58 Reevaluation #2: Ambulatory 02 95% Patient feeling slightly better. Time: 14:34 Reevaluation #3: Educated patient on diagnosis and treatment plan, answered all question, patient verbalizes understanding. At this time patient will be discharged home, advised to return with new or worsening symptoms. Educated on worrisome signs and symptoms and when to return. At this time I feel comfortable discharge home. Medications Administered Discontinued Medications Generic Name Dose Route Start Last Admin Trade Name Adryanq PRN Reason Stop Dose Admin Albuterol Sulfate 2.5 mg/ 0 mg 06/12/25 11:09 06/12/25 11:13 Albuterol/Ipratropium 3 ml INHALE 06/12/25 11:10 1 dose ONCE ONE Administration Albuterol Sulfate 2.5 mg/ 0 mg 06/12/25 11:49 06/12/25 11:52 Albuterol/Ipratropium 3 ml INHALE 06/12/25 11:50 1 dose ONCE ONE Administration Magnesium Sulfate 2 gm in 50 mls @ 25 mls/hr 06/12/25 11:49 06/12/25 12:53 Magnesium Sulfate/H2o IV 06/12/25 13:48 25 mls/hr ONCE ONE Administration Methylprednisolone Sodium Succinate 125 mg 06/12/25 11:49 06/12/25 12:53 Methylprednisolone Sod Succ 125 Mg/2 Ml Vial IVPUSH 06/12/25 11:50 125 mg ONCE ONE Administration Medical Decision Making Medical Decision Making [facility] Narrative: 54-year-old male presents with shortness of breath and wheezing x2 days. Use inhaler 14 times today with little to no relief. Denies sick contacts. No chest pain. Physical exam expiratory wheezing and diminished breath sounds bilaterally History and physical exam concerning for acute asthma exacerbation versus viral illness. Unlikely bronchitis, pneumonia, PE, ACS, acute respiratory distress. Plan viral testing basic labs and imaging Differential Diagnosis Differential Diagnoses: The differential diagnosis associated with the presentation includes (History and physical exam concerning for acute asthma exacerbation versus viral illness. Unlikely bronchitis, pneumonia, PE, ACS, acute respiratory distress.) Admission/Observation Consideration of admission/observation: Escalation of care including admission/observation considered Lab Data [facility] Lab Attestation statement: I reviewed the patient's lab results. 06/12/25 11:16 06/12/25 11:16 Labs: Lab Results 06/12/25 Range/Units 11:16 WBC 6.8 (4.8-10.8) X10*3/uL RBC 4.75 (4.60-5.80) X10*6/uL Hgb 15.6 (14.0-18.0) g/dl Hct 45.8 (42.0-52.0) % MCV 96.4 (80.0-98.0) fL MCH 32.8 (27.0-33.0) pg MCHC 34.1 (31.0-36.0) g/dl RDW 13.5 (11.0-16.0) % Plt Count 334 (160-400) X10*3/uL MPV 8.8 L (9.4-12.4) fL Immature Gran % (Auto) 0.1 (0.0-0.4) % Neut % (Auto) 66.7 (45-73) % Lymph % (Auto) 20.2 (20-40) % Callaway % (Auto) 7.5 (2-11) % Eos % (Auto) 4.6 H (0-4) % Baso % (Auto) 0.9 (0-2) % Lymph # (Auto) 1.4 (1.2-4.9) X10*3/uL [place] # (Auto) 0.5 (0.1-1.2) X10*3/uL Eos # (Auto) 0.3 (0.0-0.4) X10*3/uL Baso # (Auto) 0.1 (0.0-0.2) X10*3/uL Abs Immat Gran (auto) 0.01 (0.00-0.03) X10*3/uL Absolute Neuts (auto) 4.5 (2.0-8.3) x10*3/uL Absolute Nucleated RBC 0.000 (0.0-0.012) X10*3/uL Nucleated RBC % (auto) 0.0 (0.0-0.2) /100WBC Sodium 141 (135-145) mmol/L Potassium 4.1 (3.3-5.1) mmol/L Chloride 110 H (96-108) mmol/L Carbon Dioxide 23 (22-29) mmol/L Anion Gap 12 (12-20) BUN 11 (9-16) mg/dL Creatinine 0.65 (0.5-1.4) mg/dL Estim Creat Clear Calc 126.4 Estimated GFR > 60 Random Glucose 89 (60-115) mg/dL Calcium 8.9 (8.4-10.2) mg/dL Total Bilirubin 1.7 H (0.0-1.0) mg/dL AST 39 H (5-37) U/L ALT 20 (0-40) U/L Alkaline Phosphatase 76 (39-117) U/L Total Protein 7.3 (6.5-8.0) g/dL Albumin 4.2 (3.5-5.0) g/dL COVID-19 (MARIFER) Positive A (Negative) COVID-19 Clin Com See Note Influenza Type A (FAB) Negative (Negative) Influenza Type B (FAB) Negative (Negative) Influenza A & B Note See Note Independent Interpretation I performed an independent interpretation of an: Plain X-Ray (MPRESSION: 1. No acute findings.) Radiology Impression Discussion of test interpretation with radiology: I have reviewed the radiologist's reading. External Record Review External record reviewed: Inpatient record, Office record, Outpatient record, Prior outpatient labs, Prior outpatient radiology, Primary care record and Outside ED record Prescription Management I considered prescription management with: Other (steroids, inhaler ) Chronic Conditions Patient?s care impacted by: Other (asthma) Critical Care Time Critical Care Time Critical Care Time: Yes Total Critical Care Time: 35 Attestation: I attest to this time spent taking care of the patient, obtaining history, physical, reviewing labs, imaging, treatment of patients condition +/- specialist/hospitalist consult +/- procedure Discharge Plan Discharge Clinical Impression: COVID-19, Asthma with exacerbation, Hyperbilirubinemia Patient Disposition: Home, Self-Care Instructions: Asthma (DC), COVID-19 (Coronavirus Disease 2019) (ED) Additional Instructions: Take your medications as prescribed. If you were prescribed antibiotics today, it is important that you take your medication to their entirety, do not skip any doses, do not finish them early. Today you tested positive for COVID-19. Take Ibuprofen or Tylenol as needed for fevers or body aches. Quarantine for 5 days and ensure you wear a mask. After 5 days you should wear a mask for 5 days after that. Practice social distancing and good hand hygiene. Drink plenty of fluids. Follow-up with your primary care provider this week. Return to the emergency department with new or worsening symptoms. In case of emergency call 911 You can purchase a pulse oximeter from your local pharmacy or grocery store, and monitor your oxygen saturation if it goes below 94% you should return to the emergency department for further evaluation. Bilirubin 1.7 please follow up with your PCP for this may need repeat labs Prescriptions: New prednisone 20 mg tablet 40 mg PO DAILY 5 Days Qty: 10 0RF albuterol sulfate 90 mcg/actuation aerosol powdr breath activated 2 inh inhalation Q4-6H PRN (Reason: shortness of breath or wheezing) Qty: 1 0RF No Action amoxicillin 500 mg capsule 1,000 mg PO BID 5 Days Qty: 20 0RF albuterol sulfate 2.5 mg /3 mL (0.083 %) solution for nebulization 2.5 mg inhalation Q4-6H PRN (Reason: shortness of breath or wheezing) Qty: 75 0RF prednisone 20 mg tablet 60 mg PO DAILY 5 Days Qty: 15 0RF albuterol sulfate 90 mcg/actuation HFA aerosol inhaler 2 puff inhalation Q4-6H PRN (Reason: shortness of breath or wheezing) Qty: 8.5 0RF cephalexin 500 mg capsule 500 mg PO QID 7 Days Qty: 28 0RF doxycycline hyclate 100 mg capsule 100 mg PO BID 7 Days Qty: 14 0RF prednisone 20 mg tablet 40 mg PO DAILY 5 Days Qty: 10 0RF azithromycin 250 mg tablet See Rx Instructions .ROUTE .COMPLEX Qty: 6 0RF Rx Instructions: For 250 mg dose pack: take 500 mg today (day 1), then 250 mg for 4 days (days 2-5) albuterol sulfate 1.25 mg/3 mL solution for nebulization 1.25 mg inhalation Q4-6H PRN (Reason: shortness of breath or wheezing) Qty: 75 0RF ipratropium-albuterol 0.5 mg-3 mg(2.5 mg base)/3 mL Solution For Nebulization 3 ml inhalation RQ4H WHILE AWAKE Qty: 90 0RF nicotine 7 mg/24 hr Patch 24 Hour 7 mg transdermal DAILY Qty: 7 0RF prednisone 10 mg tablet See Taper PO DIRECTED Qty: 20 0RF Taper: Prednisone 40 mg daily for 2 Days and 0 Hour 30 mg daily for 2 Days and 0 Hour 20 mg daily for 2 Days and 0 Hour 10 mg daily for 2 Days and 0 Hour Rx Instructions: see taper instructions albuterol sulfate [Ventolin HFA] 90 mcg/actuation HFA aerosol inhaler 2 puff inhalation Q4-6H PRN (Reason: shortness of breath or wheezing) Qty: 8.5 0RF prednisone 20 mg tablet 40 mg PO DAILY 4 Days Qty: 8 0RF albuterol sulfate 90 mcg/actuation HFA aerosol inhaler 2 puff inhalation .q20 minutes PRN (Reason: shortness of breath or wheezing) Qty: 8.5 0RF penicillin V potassium 500 mg tablet 500 mg PO BID 10 Days Qty: 20 0RF Cepacol Sore Throat (alisha-men) 15-2.6 mg lozenge 1 andrew mucous membrane Q2-4H PRN (Reason: sore throat) Qty: 16 0RF cyclobenzaprine 10 mg tablet 10 mg PO TID PRN (Reason: muscle spasm) Qty: 14 0RF prednisone 20 mg tablet 40 mg PO DAILY 5 Days Qty: 10 0RF lidocaine [AsperFlex (lidocaine)] 4 % adhesive patch,medicated 1 patch topical DAILY PRN (Reason: pain) Qty: 30 0RF acetaminophen [Tylenol Extra Strength] 500 mg tablet 500 - 1,000 mg PO Q6H PRN (Reason: pain) Qty: 30 0RF prednisone 20 mg tablet 40 mg PO DAILY Qty: 10 0RF Referrals: Angeline Davies MD [Primary Care Provider, Internal Medicine] Stand Alone Forms: Work/School Release Print Language: American
[2025-06-12] MEDS: Magnesium Sulfate/H2O 2 GM/50 ML PIGGYBACK IV (12:53)
[2025-06-12 14:35] VITALS: BP 132/68; PULSE 91; RESP 16; TEMP 36.6; O2SAT 95
== END 2025-06-12 14:57 | disposition home or self-care (01) ==
PROVIDERS: Physician Assistant; Emergency Provider Emergency Medicine; PCP Internal Medicine
DX: U07.1 COVID-19 (principal); J45.901 Unspecified asthma with (acute) exacerbation; E80.6 Other disorders of bilirubin metabolism
CPT/HCPCS: 71045; 80053; 85025; 87502; 87635; 94640; 96365; 96375; 99284; 99285; J2919; J3475

== ENCOUNTER → 2025-06-12 11:04 | Outpatient (BNV) | payer MEDICAID, SELFPAY | PROVIDERS: Emergency Provider Emergency Medicine; PCP Internal Medicine; Visit Provider Radiology Diagnostic Radiology | DX: R06.02 Shortness of breath (principal) | CPT/HCPCS: 71045 ==